=== PATIENT | female | born 1995 | race African-American/Black ===

== ENCOUNTER 2020-12-21 08:00 | Outpatient (CLI) | payer OTHER ==
[2020-12-25 15:01] LABS: HSV 2 IGG TYPE SPECIFIC AB <0.90 index
== END 2020-12-21 23:59 | disposition home or self-care (01) ==
LOC: LAB.WCP 08:00
PROVIDERS: ATTEND Registered Nurse
DX: N90.89 Other specified noninflammatory disorders of vulva and perineum (principal)
CPT/HCPCS: 36415; 81599; 86695; 86696

== ENCOUNTER 2021-01-12 20:44 | Emergency (ER) | payer OTHER ==
[2021-01-12 21:28] LABS: BASOPHILS % (AUTO) 0.3 %; EOSINOPHILS # (AUTO) 0.1 10^3/uL (0.0-0.7); EOSINOPHILS % (AUTO) 0.9 %; HCT - HEMATOCRIT 37.1 % (37.0-47.0); HGB - HEMOGLOBIN 11.4 g/dL (12.0-16.0); LYMPHOCYTES # (AUTO) 2.7 10^3/uL (1.5-3.5); LYMPHOCYTES % (AUTO) 27.9 %; MEAN CORPUSCULAR HEMOGLOBIN 24.4 pg (27.0-31.0); MEAN CORPUSCULAR HGB CONC 30.7 g/dL (32.0-36.0); MEAN CORPUSCULAR VOLUME 79.4 fL (81.0-99.0); MEAN PLATELET VOLUME 10.2 fL (7.9-10.8); MONOCYTES # (AUTO) 0.6 10^3/uL (0.0-1.0); MONOCYTES % (AUTO) 5.8 %; NEUTROPHILS # (AUTO) 6.3 10^3/uL (1.5-6.6); NEUTROPHILS % (AUTO) 64.9 %; PLT - PLATELET COUNT 365 10^3/uL (130-450); RED BLOOD COUNT 4.67 10^6/uL (4.20-5.40); WHITE BLOOD COUNT 9.7 x10^3/uL (4.8-10.8)
[2021-01-12 21:34] LABS: INR 1.1 (0.8-1.2); PT - PROTHROMBIN TIME 12.1 secs (9.9-12.6)
[2021-01-12 21:47] LABS: ALBUMIN 4.2 g/dL (3.2-5.5); ALBUMIN/GLOBULIN RATIO 1.3 (1.0-2.2); BILIRUBIN,TOTAL 0.5 mg/dL (0.2-1.0); CALCIUM 9.2 mg/dL (8.5-10.3); CREATININE 0.6 mg/dL (0.4-1.0); POTASSIUM 3.7 mmol/L (3.5-5.0); TOTAL PROTEIN 7.5 g/dL (6.7-8.2)
[2021-01-12 21:50] LABS: BILIRUBIN,URINE NEGATIVE (NEGATIVE); GLUCOSE, URINE (UA) NEGATIVE (NEGATIVE); KETONES,URINE (UA) NEGATIVE (NEGATIVE); LEUKOCYTE ESTERASE, URINE NEGATIVE (NEGATIVE); NITRITE,URINE NEGATIVE (NEGATIVE); OCCULT BLOOD,URINE LARGE (NEGATIVE); PH,URINE 5.5 PH (5.0-7.5); PROTEIN,URINE NEGATIVE (NEGATIVE); UROBILINOGEN,URINE 0.2 (NORMAL) E.U./dL (NORMAL)
[2021-01-12 22:11] LABS: BACTERIA,URINE Rare /HPF (None Seen); CLARITY,URINE CLEAR (CLEAR); HCG UR QUAL NEGATIVE; MUCUS,URINE Moderate Strands; SQUAMOUS EPITHELIAL CELL,UR FEW Squamous (<= Few); WBC,URINE 0-3 /HPF (0-5)
[2021-01-12 23:23] VITALS: BP 128/74
--- NOTE | 2021-01-13 22:05 | ED Physician Documentation ---
PD HPI FEMALE - Stated complaint Stated Complaint: FEMALE - Chief complaint Chief Complaint: Abd Pain - History obtained from History obtained from: Patient - History of Present Illness Timing - onset: Enter time (18:00) Timing - details: Abrupt onset Associated symptoms: Pelvic pain, Vaginal bleeding. No: Fever Contributing factors: No: - Additional information Additional information: patient has been having varying degrees of vaginal bleeding x 10 months but significant increase in vaginal bleeding since earlier today associated with pelvic cramping; this was worst at 6 PM at which time she noticed her IUD came out and, over the subsequent 20-30 minutes, the bleeding slowed and has nearly stopped, and the cramping has resolved. By the time of this evaluation, she says she feels well Review of Systems Constitutional: denies: Fever GI: denies: Abdominal Pain (pelvic cramping but not abdominal pain per se), Nausea, Vomiting : reports: Vaginal bleeding. denies: Dysuria, Frequency, Now EGA PD PAST MEDICAL HISTORY - Past Medical History Past Medical History: No - Past Surgical History Past Surgical History: Yes Ortho: Other - Present Medications Home Medications: Ambulatory Orders Medication Instructions Recorded Confirmed No Known Home Medications 01/12/21 01/12/21 - Allergies Allergies/Adverse Reactions: Allergies Allergy/AdvReac Type Severity Reaction Status Date / Time No Known Drug Allergies Allergy Verified 01/12/21 21:05 - Social History Does the pt smoke?: No Smoking Status: Never smoker Does the pt drink ETOH?: Yes Does the pt have substance abuse?: No - Immunizations Immunizations are current?: Yes PD ED PE NORMAL - Vitals Vital signs reviewed: Yes - General General: Alert and oriented X 3, No acute distress, Well developed/nourished - Cardiac Cardiac: RRR, No murmur - Respiratory Respiratory: No respiratory distress, Clear bilaterally - Abdomen Abdomen: Normal bowel sounds, Soft, Non tender, Non distended - Back Back: No CVA TTP Results - Vitals Vitals: Vital Signs - 24 hr 01/12/21 01/12/21 23:06 23:23 Temperature 36.6 C 36.6 C Heart Rate 73 73 Respiratory 16 16 Rate Blood Pressure 128/74 128/74 O2 Saturation 100 100 Oxygen O2 Source Room air - Labs Labs: Laboratory Tests 01/12/21 01/12/21 01/12/21 21:21 21:21 21:21 WBC 9.7 RBC 4.67 Hgb 11.4 L Hct 37.1 MCV 79.4 L MCH 24.4 L MCHC 30.7 L RDW 16.0 H Plt Count 365 MPV 10.2 Neut # (Auto) 6.3 Lymph # (Auto) 2.7 Rich # (Auto) 0.6 Eos # (Auto) 0.1 Baso # (Auto) 0.0 Absolute Nucleated RBC 0.00 Nucleated RBC % 0.0 PT INR Sodium 138 Potassium 3.7 Chloride 104 Carbon Dioxide 24 Anion Gap 10.0 BUN 11 Creatinine 0.6 Estimated GFR (MDRD) 123 Glucose 106 H Calcium 9.2 Total Bilirubin 0.5 AST 15 ALT 15 Alkaline Phosphatase 74 Total Protein 7.5 Albumin 4.2 Globulin 3.3 Albumin/Globulin Ratio 1.3 Lipase 26 Urine Color Urine Clarity Urine pH Ur Specific [place] Urine Protein Urine Glucose (UA) Urine Ketones Urine Occult Blood Urine Nitrite Urine Bilirubin Urine Urobilinogen Ur Leukocyte Esterase Urine RBC Urine WBC Ur Squamous Epith Cells Urine Bacteria Urine Mucus Ur Microscopic Review Urine Culture Comments Urine HCG, Qual Blood Type O POSITIVE Antibody Screen NEGATIVE 01/12/21 01/12/21 21:21 21:36 WBC RBC Hgb Hct MCV MCH MCHC RDW Plt Count MPV Neut # (Auto) Lymph # (Auto) Rich # (Auto) Eos # (Auto) Baso # (Auto) Absolute Nucleated RBC Nucleated RBC % PT 12.1 INR 1.1 Sodium Potassium Chloride Carbon Dioxide Anion Gap BUN Creatinine Estimated GFR (MDRD) Glucose Calcium Total Bilirubin AST ALT Alkaline Phosphatase Total Protein Albumin Globulin Albumin/Globulin Ratio Lipase Urine Color YELLOW Urine Clarity CLEAR Urine pH 5.5 Ur Specific [place] >=1.030 H Urine Protein NEGATIVE Urine Glucose (UA) NEGATIVE Urine Ketones NEGATIVE Urine Occult Blood LARGE H Urine Nitrite NEGATIVE Urine Bilirubin NEGATIVE Urine Urobilinogen 0.2 (NORMAL) Ur Leukocyte Esterase NEGATIVE Urine RBC 6-10 H Urine WBC 0-3 Ur Squamous Epith Cells FEW Squamous Urine Bacteria Rare Urine Mucus Moderate Strands Ur Microscopic Review INDICATED Urine Culture Comments NOT INDICATED Urine HCG, Qual NEGATIVE Blood Type Antibody Screen PD MEDICAL DECISION MAKING - ED course Complexity details: reviewed results, considered differential, d/w patient ED course: patient had pelvic cramping which resolved this evening after her IUD dislodged (came out). She had it placed 6 months ago. She also had vaginal bleeding since earlier today but this has nearly resolved subsequent to the IUD coming out. Her blood tests are reassuring and she is comfortable with d/c home Departure - Departure Disposition: 01 Home, Self Care Clinical Impression: Vaginal bleeding IUD complication Qualifiers: Device complication type: unspecified Encounter type: initial encounter Qualified Code(s): T83.9XXA - Unspecified complication of genitourinary prosthetic device, implant and graft, initial encounter Condition: Good Instructions: ED Bleed Irregular Vaginal Comments: You should assume you are no longer protected against becoming now that your IUD is out. Follow up with your advance agent to discuss options as well as reevaluation of your bleeding and pelvic cramping Discharge Date/Time: 01/12/21 23:23
== END 2021-01-12 23:23 | disposition home or self-care (01) ==
LOC: ED 20:44
DX: T83.32XA Displacement of intrauterine contraceptive device, initial encounter (principal); Y76.8 Miscellaneous obstetric and gynecological devices associated with adverse incidents, not elsewhere classified; N93.9 Abnormal uterine and vaginal bleeding, unspecified
CPT/HCPCS: 36415; 80053; 81001; 81003; 81025; 83690; 85025; 85610; 86850; 86900; 86901; 87086; 99283; 99284

== ENCOUNTER 2021-03-19 22:34 | Emergency (ER) | payer OTHER ==
[2021-03-19 23:06] LABS: BILIRUBIN,URINE NEGATIVE (NEGATIVE); GLUCOSE, URINE (UA) NEGATIVE (NEGATIVE); KETONES,URINE (UA) NEGATIVE (NEGATIVE); LEUKOCYTE ESTERASE, URINE NEGATIVE (NEGATIVE); NITRITE,URINE NEGATIVE (NEGATIVE); OCCULT BLOOD,URINE NEGATIVE (NEGATIVE); PROTEIN,URINE NEGATIVE (NEGATIVE); UROBILINOGEN,URINE 0.2 (NORMAL) E.U./dL (NORMAL)
[2021-03-19 23:10] LABS: CLARITY,URINE CLEAR (CLEAR); HCG UR QUAL POSITIVE
[2021-03-19 23:16] LABS: BASOPHILS % (AUTO) 0.3 %; EOSINOPHILS # (AUTO) 0.2 10^3/uL (0.0-0.7); EOSINOPHILS % (AUTO) 1.3 %; HCT - HEMATOCRIT 35.1 % (37.0-47.0); HGB - HEMOGLOBIN 10.8 g/dL (12.0-16.0); LYMPHOCYTES # (AUTO) 3.8 10^3/uL (1.5-3.5); MEAN CORPUSCULAR HEMOGLOBIN 23.4 pg (27.0-31.0); MEAN CORPUSCULAR HGB CONC 30.8 g/dL (32.0-36.0); MEAN PLATELET VOLUME 9.7 fL (7.9-10.8); MONOCYTES # (AUTO) 0.9 10^3/uL (0.0-1.0); MONOCYTES % (AUTO) 7.7 %; NEUTROPHILS # (AUTO) 6.9 10^3/uL (1.5-6.6); NEUTROPHILS % (AUTO) 58.4 %; PLT - PLATELET COUNT 335 10^3/uL (130-450); RED BLOOD COUNT 4.62 10^6/uL (4.20-5.40); RED CELL DISTRIBUTION WIDTH 15.9 % (12.0-15.0); WHITE BLOOD COUNT 11.8 x10^3/uL (4.8-10.8)
[2021-03-19 23:19] LABS: CREATININE,URINE 216.8 mg/dL
[2021-03-19] MEDS ORDERED: ONDANSETRON ODT 4 MG TABLET TL STA (23:28)
--- NOTE | 2021-03-19 23:28 | ED Physician Documentation ---
History of Present Illness - Stated complaint Stated Complaint: CRAMPING, N/V - Chief complaint Chief Complaint: Abd Pain - History obtained from History obtained from: Patient - Additonal information Additional information: 25-year-old woman at about 6 weeks gestational age presents with cramping over the past 2 days and associated nausea and generalized mild headache. Patient denies bleeding or urinary symptoms however she has not had cramping like this in other pregnancies and was concerned. Denies fevers or back pain. Review of Systems Ten Systems: 10 systems reviewed and negative Constitutional: denies: Fever, Chills GI: reports: Abdominal Pain, Nausea, Vomiting. denies: Diarrhea : denies: Dysuria Musculoskeletal: denies: Back pain PD PAST MEDICAL HISTORY - Past Surgical History Past Surgical History: Yes Ortho: Other - Present Medications Home Medications: Ambulatory Orders Medication Instructions Recorded Confirmed Labetalol [Trandate] 100 mg PO DAILY #30 tablet 03/20/21 - Allergies Allergies/Adverse Reactions: Allergies Allergy/AdvReac Type Severity Reaction Status Date / Time No Known Drug Allergies Allergy Verified 01/12/21 21:05 - Social History Does the pt smoke?: No Smoking Status: Never smoker Does the pt drink ETOH?: Yes Does the pt have substance abuse?: No - Immunizations Immunizations are current?: Yes PD ED PE NORMAL - Vitals Vital signs reviewed: Yes - General General: Alert and oriented X 3, No acute distress, Well developed/nourished - HEENT HEENT: Atraumatic, PERRL, EOMI - Neck Neck: Supple, no meningeal sign - Cardiac Cardiac: RRR - Respiratory Respiratory: No respiratory distress, Clear bilaterally - Abdomen Abdomen: Non tender, Non distended - Derm Derm: Normal color, Warm and dry - Extremities Extremities: No deformity, Other (no clonus) - Neuro Neuro: Alert and oriented X 3 - Psych Psych: Normal mood, Normal affect Results - Vitals Vitals: Vital Signs - 24 hr 03/19/21 03/20/21 22:41 00:31 Temperature 37 C Heart Rate 88 Respiratory 16 Rate Blood Pressure 168/82 H 143/73 H O2 Saturation 99 Oxygen O2 Source Room air - Labs Labs: Laboratory Tests 03/19/21 03/19/21 03/19/21 22:56 22:56 23:11 WBC 11.8 H RBC 4.62 Hgb 10.8 L Hct 35.1 L MCV 76.0 L MCH 23.4 L MCHC 30.8 L RDW 15.9 H Plt Count 335 MPV 9.7 Neut # (Auto) 6.9 H Lymph # (Auto) 3.8 H [place] # (Auto) 0.9 Eos # (Auto) 0.2 Baso # (Auto) 0.0 Absolute Nucleated RBC 0.00 Nucleated RBC % 0.0 Sodium Potassium Chloride Carbon Dioxide Anion Gap BUN Creatinine Estimated GFR (MDRD) Glucose Calcium Total Bilirubin AST ALT Alkaline Phosphatase Total Protein Albumin Globulin Albumin/Globulin Ratio Lipase HCG, Quant Urine Color YELLOW Urine Clarity CLEAR Urine pH 7.0 Ur Specific [place] 1.020 Urine Protein NEGATIVE Urine Glucose (UA) NEGATIVE Urine Ketones NEGATIVE Urine Occult Blood NEGATIVE Urine Nitrite NEGATIVE Urine Bilirubin NEGATIVE Urine Urobilinogen 0.2 (NORMAL) Ur Leukocyte Esterase NEGATIVE Ur Microscopic Review NOT INDICATED Urine Culture Comments NOT INDICATED Urine Creatinine 216.8 Ur Total Protein Timed 10 Protein/Creatinin Ratio 0.0 Urine HCG, Qual POSITIVE 03/19/21 03/19/21 23:11 23:11 WBC RBC Hgb Hct MCV MCH MCHC RDW Plt Count MPV Neut # (Auto) Lymph # (Auto) [place] # (Auto) Eos # (Auto) Baso # (Auto) Absolute Nucleated RBC Nucleated RBC % Sodium 135 Potassium 4.4 Chloride 102 Carbon Dioxide 24 Anion Gap 9.0 BUN 12 Creatinine 0.7 Estimated GFR (MDRD) 103 Glucose 90 Calcium 9.2 Total Bilirubin 0.4 AST 13 ALT 13 Alkaline Phosphatase 57 Total Protein 7.1 Albumin 4.0 Globulin 3.1 Albumin/Globulin Ratio 1.3 Lipase 31 HCG, Quant 49174.00 Urine Color Urine Clarity Urine pH Ur Specific [place] Urine Protein Urine Glucose (UA) Urine Ketones Urine Occult Blood Urine Nitrite Urine Bilirubin Urine Urobilinogen Ur Leukocyte Esterase Ur Microscopic Review Urine Culture Comments Urine Creatinine Ur Total Protein Timed Protein/Creatinin Ratio Urine HCG, Qual PD MEDICAL DECISION MAKING - ED course ED course: 25-year-old woman presented for evaluation of early . Ultrasound showing twin , subchorionic hemorrhage without other abnormality. She did have an elevated blood pressure 160/82. d/w Dr. Comer, manager [employer] filling machine operator who states this sounds like essential HTN versus gestational HTN and patient should start labetalol routinely as an outpatient. reviewed labwork, u/s findings. will dc patient to f/u outpatient with her research & insights executive at [facility]. strict return precautions given. Departure - Departure Disposition: 01 Home, Self Care Clinical Impression: Twin gestation in first trimester, Subchorionic hematoma in first trimester, Hypertension Condition: Good Instructions: Hypertension Control, Preg Comfort Tips Prescriptions: Labetalol [Trandate] 100 mg PO DAILY #30 tablet Comments: You were seen in the emergency department for evaluation of your . The ultrasound showed that you are likely having twins, since there are two gestational sacs in the uterus. It also showed a subchorionic hemorrhage, a collection of blood in the uterus. If you have bleeding with this you should come to the emergency room right away. We could not see the embryo in the uterus because you are so early along so if you have any new or worsening symptoms you should certainly come back in for reevaluation for ectopic . That being said, there appears to be no emergent finding at this time. You do have high blood pressure, and our RIB SAWY[facility] Dr. Comer recommended we put you on labetalol, a blood pressure medicine. You should follow-up with your RIB SAWYER this week and let them know you are started on this medicine.
[2021-03-19 23:34] LABS: ALBUMIN/GLOBULIN RATIO 1.3 (1.0-2.2); BILIRUBIN,TOTAL 0.4 mg/dL (0.2-1.0); CALCIUM 9.2 mg/dL (8.5-10.3); CREATININE 0.7 mg/dL (0.4-1.0); POTASSIUM 4.4 mmol/L (3.5-5.0); TOTAL PROTEIN 7.1 g/dL (6.7-8.2)
[2021-03-20 02:05] VITALS: BP 132/58
--- NOTE | 2021-03-20 08:26 | Ultrasound Report ---
PROCEDURE: OB First Trimester w/TV INDICATIONS: cramping lower abd pain OUTSIDE/PRIOR DATING DATA: Last menstrual period (LMP): 02/02/2021. LMP-based estimated date of delivery (DORITA): 11/09/2021. First dating scan (date and location): 03/19/2021. Estimated date of delivery (DORITA) from first dating scan: See below. TECHNIQUE: Real-time scanning was performed of the fetus and maternal pelvic organs, with image documentation. Endovaginal scanning was also performed to better visualize the fetus and maternal ovaries. COMPARISON: None. FINDINGS: 2 intrauterine gestational sacs are present, which is age contain a yolk sac however no fe michael pole identified at this time. Mean gestational sac measures 5 weeks 5 days however recommend cont inued ultrasound follow-up as below. There are prominent vessels adjacent to the gestational sacs. Measurement variability in dating: +/- 4 weeks by LMP, +/- 7 days by mean sac diameter (use before 6 weeks gestation if crown-rump length not able to be measured), +/- 5 days by crown-rump length (6-12 weeks gestation). Maternal organs: Possible left-sided corpus luteum.. IMPRESSION: Intrauterine twin gestational sacs however no pole identified at this time. This could reflect early twin IUP, however cannot exclude blighted ovum therefore recommend follow-up pelvic ultrasound in one week, as serial beta hCG values warrant. Reviewed by: Reggie Rosas MD on 03/20/2021 8:25 AM PDT Approved by: Reggie Rosas MD on 03/20/2021 8:25 AM PDT Station ID: [id number]
== END 2021-03-20 02:13 | disposition home or self-care (01) ==
LOC: ED 22:34
DX: O41.8X10 Other specified disorders of amniotic fluid and membranes, first trimester, not applicable or unspecified (principal); O16.1 Unspecified maternal hypertension, first trimester; O30.091 Twin pregnancy, unable to determine number of placenta and number of amniotic sacs, first trimester; Z3A.01 Less than 8 weeks gestation of pregnancy
CPT/HCPCS: 36415; 76801; 76817; 80053; 81003; 81025; 82570; 83690; 84156; 84702; 85025; 99284; Q0162; 81001; 87086

== ENCOUNTER 2021-08-27 08:00 | Outpatient (CLI) | payer OTHER | END 2021-08-27 23:59 | LOC: LAB.N 08:00 | PROVIDERS: ATTEND Family Medicine | DX: U07.1 COVID-19 (principal) ==

== ENCOUNTER 2022-02-18 21:20 | Emergency (ER) | payer OTHER ==
--- OUTSIDE RECORDS SUMMARY | 2022-02-18 21:37 | EXTERNAL MEDICAL SUMMARY RPT | Continuity of Care Document ---
:1995 Author Organization [facility] Address [address] [place] [address] Phone Allergies No information. Encounters No information. Functional Status No information. Immunizations No information. Medications date description facility [id number] Escitalopram 10 MG Oral Tablet [facility] Problems No information. Procedures date description facility [id number] [facility] [id number] [facility] [id number]+0000 [facility] [id number]+0000 [facility] [id number]+0000 [facility] [id number]+0000 [facility] [id number]+0000 [facility] [id number]+0000 [facility] [id number]+0000 [facility] [id number]+0000 [facility] [id number]+0000 [facility] [id number]+0000 [facility] [id number]+0000 [facility] Results/Labs test date author facility value unit interpret ation Result panel 1 (unknown) (no (unknown) (unknown) (no value) (units (unk nown) date) unknown) (unknown) (no (unknown) (unknown) *Induction. (units (un known) date) unknown) (unknown) (no (unknown) (unknown) *PPD : back into (units (unknown) date) Therapy, was put unknown) on Anxiety Rx. But better this time (unknown) (no (unknown) (unknown) *Severe PPD : (units ( unknown) date) Therapy and unknown) Medication. (unknown) (no (unknown) (unknown) Patient presents (units (unknown) date) for a new OB unknown) visit at 9 weeks with twins. She has had (unknown) (no (unknown) (unknown) Patient presents (units (unknown) date) for a routine OB unknown) visit at 18 weeks gestation with (unknown) (no (unknown) (unknown) Patient presents (units (unknown) date) for a routine unknown) visit at 14 weeks gestation with (unknown) (no (unknown) (unknown) Patient presents (units (unknown) date) for a routine unknown) visit at 22 weeks gestation with (unknown) (no (unknown) (unknown) Patient presents (units (unknown) date) for a routine unknown) visit at 26 weeks gestation. Jonh (unknown) (no (unknown) (unknown) Patient presents (units (unknown) date) for a routine unknown) visit at 30 weeks gestation with (unknown) (no (unknown) (unknown) Patient presents (units (unknown) date) for a routine unknown) visit at 32 weeks gestation with (unknown) (no (unknown) (unknown) Patient presents (units (unknown) date) for a routine unknown) visit at 36 weeks gestation. She (unknown) (no (unknown) (unknown) Patient presents (units (unknown) date) for a routine unknown) visit at 37 weeks gestation with (unknown) (no (unknown) (unknown) Pt presents for (units (unknown) date) a PNV at 34 weeks unknown) gestation. No c/o. Jonh FM x 2. No (unknown) (no (unknown) (unknown) (no value) (units (unk nown) date) unknown) (unknown) (no (unknown) (unknown) (no value) (units (unk nown) date) unknown) (unknown) (no (unknown) (unknown) (+12 lb) (units (unkno wn) date) 124/68 N unknown) (unknown) (no (unknown) (unknown) (+16 lb) (units (unkno wn) date) 126/68 N unknown) (unknown) (no (unknown) (unknown) (+28 lb) (units (unkno wn) date) 126/68 N unknown) (unknown) (no (unknown) (unknown) (+35 lb) (units (unkno wn) date) 128/60 N unknown) (unknown) (no (unknown) (unknown) (+41 lb) (units (unkno wn) date) 146/72 unknown) (unknown) (no (unknown) (unknown) (+50 lb) (units (unkno wn) date) 130/62 N unknown) (unknown) (no (unknown) (unknown) (+51 lb) (units (unkno wn) date) 122/62 N unknown) (unknown) (no (unknown) (unknown) (+61 lb) (units (unkno wn) date) 126/76 N unknown) (unknown) (no (unknown) (unknown) (+66 lb) (units (unkno wn) date) 131/76 unknown) (unknown) (no (unknown) (unknown) (+66 lb) (units (unkno wn) date) 136/68 N unknown) (unknown) (no (unknown) (unknown) (+66 lb) (units (unkno wn) date) unknown) (unknown) (no (unknown) (unknown) (+8 lb) (units (unkno wn) date) 120/68 N unknown) (unknown) (no (unknown) (unknown) 09/05/21 (units (unkno wn) date) unknown) (unknown) (no (unknown) (unknown) 09/17/21 (units (unkno wn) date) unknown) (unknown) (no (unknown) (unknown) 09/30/21 (units (unkno wn) date) unknown) (unknown) (no (unknown) (unknown) 10/14/21 (units (unkno wn) date) unknown) (unknown) (no (unknown) (unknown) 10/22/21 (units (unkno wn) date) unknown) (unknown) (no (unknown) (unknown) 10/24/21 (units (unkno wn) date) unknown) (unknown) (no (unknown) (unknown) 02/02/18 40.2 (units ( unknown) date) 30 7 lb 4 oz unknown) Female vaginal live - full ter (unknown) (no (unknown) (unknown) 04/11/21 (units (unkno wn) date) unknown) (unknown) (no (unknown) (unknown) 05/13/21 (units (unkno wn) date) unknown) (unknown) (no (unknown) (unknown) 1+ No no (units (unknown) date) A 155 unknown) (unknown) (no (unknown) (unknown) 1+ Yes no (units (unknown) date) A 140 unknown) (unknown) (no (unknown) (unknown) 1+ Yes no (units (unknown) date) A 150 unknown) (unknown) (no (unknown) (unknown) 06/10/21 (units (unkno wn) date) unknown) (unknown) (no (unknown) (unknown) 07/04/19 38 (units (un known) date) 30 6 lb 2 oz unknown) Female vaginal live - full ter (unknown) (no (unknown) (unknown) 07/09/21 (units (unkno wn) date) unknown) (unknown) (no (unknown) (unknown) 08/07/21 (units (unkno wn) date) unknown) (unknown) (no (unknown) (unknown) 128/76 N (units (un known) date) unknown) (unknown) (no (unknown) (unknown) 141 (units (unkno wn) date) unknown) (unknown) (no (unknown) (unknown) 141 (units (unkno wn) date) unknown) (unknown) (no (unknown) (unknown) 14w 2d 257 lb (units (unknown) date) unknown) (unknown) (no (unknown) (unknown) 153/62 (units (unkno wn) date) unknown) (unknown) (no (unknown) (unknown) 18w 2d 261 lb (units (unknown) date) unknown) (unknown) (no (unknown) (unknown) 22w 3d 273 lb (units (unknown) date) unknown) (unknown) (no (unknown) (unknown) 26w 4d 280 lb (units (unknown) date) unknown) (unknown) (no (unknown) (unknown) 30w 5d 286 lb (units (unknown) date) unknown) (unknown) (no (unknown) (unknown) 311 lb (units (unkno wn) date) unknown) (unknown) (no (unknown) (unknown) 32w 3d 296 lb (units (unknown) date) unknown) (unknown) (no (unknown) (unknown) 34w 2d 295 lb (units (unknown) date) unknown) (unknown) (no (unknown) (unknown) 36w 2d 306 lb (units (unknown) date) unknown) (unknown) (no (unknown) (unknown) 37w 3d 311 lb (units (unknown) date) unknown) (unknown) (no (unknown) (unknown) 38w 0d 311 lb (units (unknown) date) unknown) (unknown) (no (unknown) (unknown) 9w 5d 253 lb (units (unknown) date) unknown) (unknown) (no (unknown) (unknown) A (units (unkno wn) date) unknown) (unknown) (no (unknown) (unknown) [place] (units ( unknown) date) [address] unknown) (unknown) (no (unknown) (unknown) Current Estimate (units (unknown) date) 11/09/21 unknown) LMP (Certain) 44w 2d (unknown) (no (unknown) (unknown) Diabetes (units (unkno wn) date) mellitus unknown) (unknown) (no (unknown) (unknown) Draft (units (unkno wn) date) unknown) (unknown) (no (unknown) (unknown) Drug addiction (units (unknown) date) in remission unknown) (unknown) (no (unknown) (unknown) Estimated (units (unkn own) date) Delivery Date unknown) Method Current (unknown) (no (unknown) (unknown) Family (units (unkno wn) date) estrangement unknown) (unknown) (no (unknown) (unknown) # 2 (units (u nknown) date) unknown) (unknown) (no (unknown) (unknown) [facility]) (unknown) (no (unknown) (unknown) History of ETOH (units (unknown) date) abuse unknown) (unknown) (no (unknown) (unknown) History of (units (unk nown) date) incarceration unknown) (unknown) (no (unknown) (unknown) Hypertension (units (u nknown) date) unknown) (unknown) (no (unknown) (unknown) N Yes no (units (unknown) date) A 131 unknown) (unknown) (no (unknown) (unknown) OB Office Visit (units (unknown) date) unknown) (unknown) (no (unknown) (unknown) Other Estimates (units (unknown) date) 11/14/21 unknown) Ultrasound #1 43w 4d (unknown) (no (unknown) (unknown) Skin cancer (units (un known) date) unknown) (unknown) (no (unknown) (unknown) TR No no (units (unknown) date) A 170 unknown) (unknown) (no (unknown) (unknown) TR Yes no (units (unknown) date) A 129 unknown) (unknown) (no (unknown) (unknown) TR Yes no (units (unknown) date) A 134 unknown) (unknown) (no (unknown) (unknown) TR Yes no (units (unknown) date) A 138 unknown) (unknown) (no (unknown) (unknown) TR Yes no (units (unknown) date) A 141 unknown) (unknown) (no (unknown) (unknown) TR Yes no (units (unknown) date) A 151 unknown) (unknown) (no (unknown) (unknown) kag (units (unkno wn) date) unknown) (unknown) (no (unknown) (unknown) (no value) (units (unk nown) date) unknown) (unknown) (no (unknown) (unknown) Genetic (units (unkn own) date) Screening/Teratol unknown) ogy Counseling - Includes patient, baby's father, or (unknown) (no (unknown) (unknown) -?-?-?-?-?-?-?-? (units (unknown) date) -?-?-?-?- unknown) (unknown) (no (unknown) (unknown) 0081 (units (unkno wn) date) unknown) (unknown) (no (unknown) (unknown) 12/09/21 (units (unkno wn) date) unknown) (unknown) (no (unknown) (unknown) 1. : (units (unk nown) date) with unknown) Di/Di Twins. Boy/Girl (unknown) (no (unknown) (unknown) 10. PICA at 26 (units (unknown) date) weeks. Discussed unknown) PNV and iron (unknown) (no (unknown) (unknown) 11. *Special* (units (unknown) date) unknown) (unknown) (no (unknown) (unknown) 141 beats per (units ( unknown) date) minute. unknown) heart rate B 138 beats per minute. Both or in the (unknown) (no (unknown) (unknown) 2. H/O PIH with (units (unknown) date) both pregnancies unknown) and hemorrhage PP both times also. On (unknown) (no (unknown) (unknown) 2021. No (units (unkno wn) date) contractions. unknown) Good movement x2. No leakage of fluid or vaginal (unknown) (no (unknown) (unknown) 3. Thalassemia. (units (unknown) date) unknown) (unknown) (no (unknown) (unknown) 4. Hyperemesis (units (unknown) date) Gravidarum : unknown) Infusions have helped some. Zofran/Reglan (unknown) (no (unknown) (unknown) 49%ile. B AGA (units ( unknown) date) 30w0d 3#10oz unknown) 51%ile. No tension on membrane. Trans/Trans. Plan: (unknown) (no (unknown) (unknown) 5. Pre-diabetic (units (unknown) date) diagnosis February unknown) 2020 (unknown) (no (unknown) (unknown) 6. 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 (unknown) (no (unknown) (unknown) 8. Obesity : (units ( unknown) date) Prepping for unknown) Gastric Sleeve surgery when she found out she was (unknown) (no (unknown) (unknown) 9. H/O Left Hip (units (unknown) date) : slipped unknown) epiphysis (fractured that hip also) with Hardware (unknown) (no (unknown) (unknown) Abnormal lab (units (u nknown) date) values 1st unknown) trimester: discussed (unknown) (no (unknown) (unknown) Add'l Plan (units (unk nown) date) Details unknown) (unknown) (no (unknown) (unknown) Age at menarche: (units (unknown) date) 16 unknown) (unknown) (no (unknown) (unknown) Age/Sex: 25 / F (units (unknown) date) Date of unknown) Service: (unknown) (no (unknown) (unknown) Allergies (units (unkn own) date) unknown) (unknown) (no (unknown) (unknown) Anemia (units (unkno wn) date) unknown) (unknown) (no (unknown) (unknown) Anesthesia (units (unk nown) date) unknown) (unknown) (no (unknown) (unknown) Aneuploidy (units (unk nown) date) Screening unknown) Offered: Accepted (unknown) (no (unknown) (unknown) Anticipated (units (un known) date) course of unknown) care: discussed (unknown) (no (unknown) (unknown) Assessment and (units (unknown) date) Plan unknown) (unknown) (no (unknown) (unknown) Attending Dr: (units ( unknown) date) Fanny Brown unknown) (unknown) (no (unknown) (unknown) B Transverse (units (unknown) date) absent 2 unknown) wks (unknown) (no (unknown) (unknown) B Transverse (units (unknown) date) absent 4 unknown) wks (unknown) (no (unknown) (unknown) B Vertex (units (u nknown) date) 1+ 2 wks unknown) (unknown) (no (unknown) (unknown) B Vertex (units (u nknown) date) 1+ 3d unknown) (unknown) (no (unknown) (unknown) B Vertex (units (u nknown) date) 1+ cl/75/soft unknown) 1 (unknown) (no (unknown) (unknown) B 138 49 (units (unknown) date) A Vertex unknown) (unknown) (no (unknown) (unknown) B 142 27 (units (unknown) date) A Transverse unknown) (unknown) (no (unknown) (unknown) B 144 47 (units (unknown) date) A Vertex unknown) (unknown) (no (unknown) (unknown) B 148 37 (units (unknown) date) A Transverse unknown) (unknown) (no (unknown) (unknown) B 148 43 (units (unknown) date) A Vertex unknown) (unknown) (no (unknown) (unknown) B 151 24 (units (unknown) date) A Transverse unknown) (unknown) (no (unknown) (unknown) B 153 17 (units (unknown) date) A Transverse unknown) (unknown) (no (unknown) (unknown) B 178 12 (units (unknown) date) A N/A unknown) (unknown) (no (unknown) (unknown) B 29 31 (units ( unknown) date) A Transverse unknown) (unknown) (no (unknown) (unknown) B 51 39 (units ( unknown) date) A Vertex unknown) (unknown) (no (unknown) (unknown) B A (units (unkno wn) date) unknown) (unknown) (no (unknown) (unknown) B N/A (units (unkno wn) date) absent unknown) long/closed AGA 9w0d 4 (unknown) (no (unknown) (unknown) B (units (unkno wn) date) unknown) (unknown) (no (unknown) (unknown) 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 unknown) (unknown) (no (unknown) (unknown) Caffeine use, (units ( unknown) date) Eating disorder unknown) history, Exercise and activity, (unknown) (no (unknown) (unknown) Childbirth (units (unk nown) date) Classes: unknown) discussed (unknown) (no (unknown) (unknown) Current (units (unkno wn) date) History unknown) (unknown) (no (unknown) (unknown) : 1995 (units (unknown) date) Acct:[id number] unknown) (unknown) (no (unknown) (unknown) Date (units (unkno wn) date) unknown) (unknown) (no (unknown) (unknown) Date of positive (units (unknown) date) home unknown) test: 03/03/21 (unknown) (no (unknown) (unknown) Del. Date (units (unkn own) date) GA/Weeks Labor unknown) Lgth Wt Sex Route Outcome Anesthesia Place (unknown) (no (unknown) (unknown) Delivery Date: (units (unknown) date) 10/25/21 unknown) (unknown) (no (unknown) (unknown) Delivery Date: (units (unknown) date) 02/02/18 Last unknown) Updated by: Karlene Figueroa R.N. (unknown) (no (unknown) (unknown) Delivery Date: (units (unknown) date) 07/04/19 Last unknown) Updated by: Karlene Figueroa R.N. (unknown) (no (unknown) (unknown) Delv (units (unkno wn) date) unknown) (unknown) (no (unknown) (unknown) Denies Congenital (units (unknown) date) Heart Defect, unknown) Denies Down Syndrome, Denies Muscular Dystrophy, (unknown) (no (unknown) (unknown) Denies (units (unkno wn) date) Hemophilia or unknown) other blood disorders, Denies Cystic Fibrosis, Denies (unknown) (no (unknown) (unknown) Denies Neural (units ( unknown) date) Tube Defect unknown) (Meningomyelocele , Spina Bifida, or Anencephaly), (unknown) (no (unknown) (unknown) Denies Patient (units (unknown) date) or baby's father unknown) had a child with defects not listed above (unknown) (no (unknown) (unknown) Denies Edgardo-Sachs (units (unknown) date) (Ashkenazi unknown) Oriental Orthodox, Cajun, Taiwanese Panamanian), Denies Patricia (unknown) (no (unknown) (unknown) Denies other (units (u nknown) date) unknown) (unknown) (no (unknown) (unknown) Denies over the (units (unknown) date) counter unknown) medications, Denies alcohol, Denies illicit drugs and (unknown) (no (unknown) (unknown) Depression: (units (un known) date) discussed unknown) (unknown) (no (unknown) (unknown) Dept at (units (unkno wn) date) . unknown) (unknown) (no (unknown) (unknown) Disease (units (unkno wn) date) (Ashkenazi unknown) Oriental Orthodox), Denies Familial Dysautonomia (Ashkenazi Oriental Orthodox), (unknown) (no (unknown) (unknown) Documented By: (units (unknown) date) Fanny Brown unknownNishi BEVERLY 12/09/21 6153 (unknown) (no (unknown) (unknown) Domestic (units (unkno wn) date) violence: unknown) discussed (unknown) (no (unknown) (unknown) DORITA Calculator (units (unknown) date) unknown) (unknown) (no (unknown) (unknown) EGA Weight BP (units ( unknown) date) UGlucose unknown) (unknown) (no (unknown) (unknown) ETOH use, (units (unkno wn) date) Sauna/hot tub unknown) use, Dental care, Marijuana use, Substance use, Domestic (unknown) (no (unknown) (unknown) Family History (units (unknown) date) (Updated 04/10/21 unknown) @ 10:45 by Karlene Figueroa RN) (unknown) (no (unknown) (unknown) Father (units (unkno wn) date) MVA unknown) (motor vehicle accident) (unknown) (no (unknown) (unknown) Father of Baby: (units (unknown) date) as above unknown) (unknown) (no (unknown) (unknown) heart (units (un known) date) rates 150/151 unknown) respectively. Plan: Quad screen today. Twenty week (unknown) (no (unknown) (unknown) First Trimester (units (unknown) date) Education unknown) Checklist (unknown) (no (unknown) (unknown) Genetic (units (unkno wn) date) Screening unknown) (unknown) (no (unknown) (unknown) Genetic (units (unkno wn) date) Screening + unknown) Counseling (unknown) (no (unknown) (unknown) Good AFV. Plan: (units (unknown) date) F/U 1 wk. Warning unknown) signs reviewed. kag (unknown) (no (unknown) (unknown) Good (units (unk nown) date) movement x2. No unknown) leakage of fluid or vaginal bleeding. No regular (unknown) (no (unknown) (unknown) Grandfather (units (un known) date) Cancer unknown) (unknown) (no (unknown) (unknown) Grandfather (units (un known) date) Family unknown) estrangement (unknown) (no (unknown) (unknown) Grandmother (units (un known) date) Arthritis unknown) (unknown) (no (unknown) (unknown) Grandmother (units (un known) date) Cancer unknown) (unknown) (no (unknown) (unknown) 3 (units (unknown) date) Multiple unknown) births 0 (unknown) (no (unknown) (unknown) : 3 (units (unk nown) date) unknown) (unknown) (no (unknown) (unknown) H+H ordered. (units (u nknown) date) COVID test in 1 unknown) week prior to induction. Warning signs reviewed. (unknown) (no (unknown) (unknown) HIV risk (units (unkno wn) date) evaluation: low unknown) risk (unknown) (no (unknown) (unknown) Health Center (units ( unknown) date) Education unknown) (unknown) (no (unknown) (unknown) Health center (units ( unknown) date) information: unknown) nature of practice discussed, visit schedule (unknown) (no (unknown) (unknown) Heavy menstrual (units (unknown) date) period unknown) (unknown) (no (unknown) (unknown) Hemorrhage, (units (un known) date) immediate unknown) (unknown) (no (unknown) (unknown) Hepatitis C risk (units (unknown) date) evaluation: low unknown) risk (unknown) (no (unknown) (unknown) Herpes (units (unkno wn) date) () unknown) (unknown) (no (unknown) (unknown) Hip fracture, (units ( unknown) date) left unknown) (unknown) (no (unknown) (unknown) History of (units (unk nown) date) Hepatitis B: No unknown) (unknown) (no (unknown) (unknown) History of (units (unk nown) date) Hepatitis C: No unknown) (unknown) (no (unknown) (unknown) History of hip (units (unknown) date) surgery unknown) (unknown) (no (unknown) (unknown) History of (units (unk nown) date) prediabetes unknown) (unknown) (no (unknown) (unknown) History/Interim (units (unknown) date) Details unknown) (unknown) (no (unknown) (unknown) Elías's (units (u nknown) date) Chorea, Denies unknown) Other inherited genetic or chromosomal disorder, (unknown) (no (unknown) (unknown) Hx # (units (u nknown) date) Pregnancies unknown) 0 Elective abortions 0 (unknown) (no (unknown) (unknown) Hx # Term (units (unkn own) date) Pregnancies unknown) 2 Ectopic pregnancies 0 (unknown) (no (unknown) (unknown) Hyperemesis (units (un known) date) gravidarum unknown) (-03/2021) (unknown) (no (unknown) (unknown) Induction (units (unkn own) date) 10/28/21. Warning unknown) signs reviewed. F/U 2 wks. kag (unknown) (no (unknown) (unknown) Infection (units (unkn own) date) History unknown) (unknown) (no (unknown) (unknown) Infection (units (unkn own) date) history comments: unknown) Considering Covid vaccination: many concerns and (unknown) (no (unknown) (unknown) Infectious (units (unk nown) date) Disease Education unknown) (unknown) (no (unknown) (unknown) Infectious (units (unk nown) date) disease exposure: unknown) chicken pox immunity discussed, CMV discussed, (unknown) (no (unknown) (unknown) Initial Weight: (units (unknown) date) 245 lb unknown) (unknown) (no (unknown) (unknown) Initials (units (unkno wn) date) unknown) (unknown) (no (unknown) (unknown) Intake (units (unkno wn) date) unknown) (unknown) (no (unknown) (unknown) LOF/VB/Ctx's. (units (u nknown) date) US: Vertex/vertex unknown) A AGA 33w2d B 34w2d. No tension on membrane. (unknown) (no (unknown) (unknown) Live with (units (unkn own) date) someone with TB unknown) or exposed to TB: No (unknown) (no (unknown) (unknown) Loc: [facility] (units (unkno wn) date) unknown) (unknown) (no (unknown) (unknown) Marijuana use: (units (unknown) date) discussed unknown) (unknown) (no (unknown) (unknown) Marital status: (units (unknown) date) unknown) (unknown) (no (unknown) (unknown) Medical History (units (unknown) date) (Updated 11/05/21 unknown) @ 21:26 by Fanny Brown MD) (unknown) (no (unknown) (unknown) Menstrual (units (unkn own) date) History unknown) (unknown) (no (unknown) (unknown) Menstrual cycle (units (unknown) date) length: Regular unknown) (unknown) (no (unknown) (unknown) Mother Bipolar (units (unknown) date) 1 disorder unknown) (unknown) (no (unknown) (unknown) Naval, [place] 15 (units (unknown) date) months unknown) induced hyper- (unknown) (no (unknown) (unknown) Notes (units (unkno wn) date) unknown) (unknown) (no (unknown) (unknown) Number of Living (units (unknown) date) Children 2 unknown) (unknown) (no (unknown) (unknown) Number of Weeks (units (unknown) date) Post : 6 unknown) (unknown) (no (unknown) (unknown) Number of (units (unkn own) date) fetuses:: Twins unknown) (unknown) (no (unknown) (unknown) Nutrition and (units ( unknown) date) weight gain unknown) counseling: special diet: discussed (unknown) (no (unknown) (unknown) OB Visit Log (units (u nknown) date) unknown) (unknown) (no (unknown) (unknown) Obesity (units (unkno wn) date) unknown) (unknown) (no (unknown) (unknown) On control (units (unknown) date) at conception?: unknown) No (IUD (Mirena) 'fell out' early January) (unknown) (no (unknown) (unknown) On ultrasound: (units (unknown) date) No tension on the unknown) membrane. Both babies are in the transverse (unknown) (no (unknown) (unknown) PFSH (units (unkno wn) date) unknown) (unknown) (no (unknown) (unknown) PKU); (units (unkno wn) date) unknown) (unknown) (no (unknown) (unknown) Para 2 (units ( unknown) date) Spontaneous unknown) abortions 0 (unknown) (no (unknown) (unknown) Para: 4 (units (unkno wn) date) unknown) (unknown) (no (unknown) (unknown) Partner history (units (unknown) date) of STD: denies hx unknown) (unknown) (no (unknown) (unknown) Partner history (units (unknown) date) of genital unknown) herpes: No ('He tested Negative', per patient) (unknown) (no (unknown) (unknown) Partner: Devin (units ( unknown) date) Manny unknown) (unknown) (no (unknown) (unknown) Past Pregnancies (units (unknown) date) unknown) (unknown) (no (unknown) (unknown) Patient's age 36 (units (unknown) date) years or older as unknown) of estimated date of delivery: No (unknown) (no (unknown) (unknown) Patient: (units (unkno wn) date) Zev Bryant R unknown) MR#: [id number] (unknown) (no (unknown) (unknown) Personal history (units (unknown) date) of STD: other unknown) (unknown) (no (unknown) (unknown) Personal history (units (unknown) date) of genital unknown) herpes: Yes (Recent diagnosis : HSV-16 November 2020) (unknown) (no (unknown) (unknown) Plan: Add baby (units (unknown) date) aspirin. unknown) Continue infusions as needed. Follow-up in 4 weeks. (unknown) (no (unknown) (unknown) Post (units (un known) date) unknown) (unknown) (no (unknown) (unknown) (units (unkn own) date) History unknown) (unknown) (no (unknown) (unknown) type:: (units (unknown) date) Other Normal unknown) (unknown) (no (unknown) (unknown) (units (unkno wn) date) Education unknown) (unknown) (no (unknown) (unknown) Initial (units (unknown) date) Assessment unknown) (unknown) (no (unknown) (unknown) (units (unkno wn) date) Specific unknown) Issues/Plans (unknown) (no (unknown) (unknown) (units (unkno wn) date) Testing: unknown) discussed (unknown) (no (unknown) (unknown) Visit (units (unknown) date) unknown) (unknown) (no (unknown) (unknown) (units (unkno wn) date) education packet: unknown) Child education/plan, symptoms, (unknown) (no (unknown) (unknown) Primary Ob (units (unk nown) date) Provider: unknown) Fanny Brown (unknown) (no (unknown) (unknown) Prior (units (unkno wn) date) GBS-Infected unknown) child: No (unknown) (no (unknown) (unknown) Providers (units (unkn own) date) unknown) (unknown) (no (unknown) (unknown) Rash or viral (units ( unknown) date) illness since unknown) last menstrual period: No (unknown) (no (unknown) (unknown) Reason For Visit (units (unknown) date) unknown) (unknown) (no (unknown) (unknown) Recent travel (units ( unknown) date) outside of unknown) country?: No (unknown) (no (unknown) (unknown) Recurrent (units (unkn own) date) loss or unknown) a stillbirth: No (unknown) (no (unknown) (unknown) Reports Sickle (units (unknown) date) Cell Disease or unknown) Trait (), Reports Mental (unknown) (no (unknown) (unknown) Retardation/Auti (units (unknown) date) sm and Reports unknown) Maternal Metabolic Disorder (EG,TYPE 1 Diabetes, (unknown) (no (unknown) (unknown) (spontaneous (units (unknown) date) vaginal delivery) unknown) (-02/02/18) (unknown) (no (unknown) (unknown) (spontaneous (units (unknown) date) vaginal delivery) unknown) (-07/04/19) (unknown) (no (unknown) (unknown) Signed By: (units (unk nown) date) unknown) (unknown) (no (unknown) (unknown) [place] (units ( unknown) date) 1 month : unknown) attempted induced hyper- (unknown) (no (unknown) (unknown) Sister No (units (unknown) date) problems noted. unknown) (unknown) (no (unknown) (unknown) Slipped (units (unkno wn) date) epiphysis unknown) (unknown) (no (unknown) (unknown) Smokeless (units (unkn own) date) tobacco user: unknown) dissolvable tobacco (unknown) (no (unknown) (unknown) Smoking Status: (units (unknown) date) Former smoker unknown) (unknown) (no (unknown) (unknown) Smoking/Tobacco (units (unknown) date) use: discussed unknown) (unknown) (no (unknown) (unknown) Social History (units (unknown) date) unknown) (unknown) (no (unknown) (unknown) Surgical History (units (unknown) date) (Updated 04/10/21 unknown) @ 11:29 by Karlene Figueroa RN) (unknown) (no (unknown) (unknown) Symptoms since (units (unknown) date) LMP: Reports unknown) amenorrhea, nausea, vomiting, fatigue, breast (unknown) (no (unknown) (unknown) Teratogen (units (unkn own) date) Exposures since unknown) LMP/Conception: Denies prescription medications, (unknown) (no (unknown) (unknown) Thalassemia (units (un known) date) unknown) (unknown) (no (unknown) (unknown) This note may (units ( unknown) date) have been all or unknown) partially generated using voice recognition (unknown) (no (unknown) (unknown) Tobacco + (units (unkn own) date) Substance Use unknown) (unknown) (no (unknown) (unknown) Tobacco Status (units (unknown) date) unknown) (unknown) (no (unknown) (unknown) Tobacco: How (units (u nknown) date) many years used: unknown) 2 (unknown) (no (unknown) (unknown) Toxoplasmosis (units ( unknown) date) precautions and unknown) Listeriosis prevention (unknown) (no (unknown) (unknown) Twin (units (unknown) date) (-03/20/21) unknown) (unknown) (no (unknown) (unknown) Type of (units (unkno wn) date) Delivery: unknown) (unknown) (no (unknown) (unknown) UProtein Movement (units (unknown) date) PreLabor FHR Fndl unknown) Ht Pres Edema Cerv Exam US/Comment Next Appt (unknown) (no (unknown) (unknown) Varicella/chicke (units (unknown) date) n pox status: unknown) previous disease (unknown) (no (unknown) (unknown) Visit Date: (units (un known) date) 09/05/21 Last unknown) Updated by: Fanny Brown MD (unknown) (no (unknown) (unknown) Visit Date: (units (un known) date) 09/17/21 Last unknown) Updated by: Fanny Brown MD (unknown) (no (unknown) (unknown) Visit Date: (units (un known) date) 09/30/21 Last unknown) Updated by: Fanny Brown MD (unknown) (no (unknown) (unknown) Visit Date: (units (un known) date) 10/14/21 Last unknown) Updated by: Fanny Brown MD (unknown) (no (unknown) (unknown) Visit Date: (units (un known) date) 10/22/21 Last unknown) Updated by: Fanny Brown MD (unknown) (no (unknown) (unknown) Visit Date: (units (un known) date) 04/11/21 Last unknown) Updated by: Fanny Brown (unknown) (no (unknown) (unknown) Visit Date: (units (un known) date) 05/13/21 Last unknown) Updated by: Fanny Brown (unknown) (no (unknown) (unknown) Visit Date: (units (un known) date) 06/10/21 Last unknown) Updated by: Fanny Brown (unknown) (no (unknown) (unknown) Visit Date: (units (un known) date) 07/09/21 Last unknown) Updated by: Fanny Brown MD (unknown) (no (unknown) (unknown) Visit Date: (units (un known) date) 08/07/21 Last unknown) Updated by: Fnany Brown MD (unknown) (no (unknown) (unknown) Visit Reasons: 6 (units (unknown) date) wk PP unknown) (unknown) (no (unknown) (unknown) Vitamins and (units (u nknown) date) iron, Diet and unknown) weight gain, Fish and mercury intake, Smoking, (unknown) (no (unknown) (unknown) WG (units (unkno wn) date) unknown) (unknown) (no (unknown) (unknown) Warning signs (units ( unknown) date) reviewed. kag unknown) (unknown) (no (unknown) (unknown) [place] teeth (units (u nknown) date) extracted (-2014) unknown) (unknown) (no (unknown) (unknown) Zika virus (units (unk nown) date) exposure: No unknown) (unknown) (no (unknown) (unknown) alcohol intake: (units (unknown) date) former unknown) (unknown) (no (unknown) (unknown) and Denies Other (units (unknown) date) unknown) (unknown) (no (unknown) (unknown) and (units (unknown) date) hemorrhage. She unknown) is currently on labetalol 100 mg twice a day. (unknown) (no (unknown) (unknown) anyone in either (units (unknown) date) family with: unknown) (unknown) (no (unknown) (unknown) around. (units (unkno wn) date) unknown) (unknown) (no (unknown) (unknown) baby B is AGA 26 (units (unknown) date) weeks 6 days. 2 unknown) lb 4 oz. placenta is grade 0. Plan: 1 hour (unknown) (no (unknown) (unknown) baby's positions (units (unknown) date) had changed. No unknown) leakage of fluid or vaginal bleeding. On (unknown) (no (unknown) (unknown) bleeding. On (units ( unknown) date) ultrasound: unknown) There is adequate amniotic fluid on either side of (unknown) (no (unknown) (unknown) caregiver/suppor (units (unknown) date) t person: No unknown) (unknown) (no (unknown) (unknown) contractions. (units ( unknown) date) On ultrasound: No unknown) tension on the membrane. heart rate A (unknown) (no (unknown) (unknown) current (units (unkno wn) date) occupational unknown) exposures/hazards : No (unknown) (no (unknown) (unknown) dichorionic (units (un known) date) diamniotic twins. unknown) Good movement of both babies. No leakage (unknown) (no (unknown) (unknown) dichorionic/diam (units (unknown) date) niotic twins. No unknown) complaints. She is feeling both babies move. (unknown) (no (unknown) (unknown) dichorionic/diam (units (unknown) date) niotic twins. unknown) She is scheduled for induction later this week. (unknown) (no (unknown) (unknown) dichorionic/diam (units (unknown) date) niotic twins. unknown) She is still having a little bit of nausea. Was (unknown) (no (unknown) (unknown) education level: (units (unknown) date) high school unknown) (unknown) (no (unknown) (unknown) pinky/lutheran: (units (unknown) date) [place] unknown) (unknown) (no (unknown) (unknown) movement. (units (unknown) date) No leakage of unknown) fluid or vaginal bleeding. No contractions. On (unknown) (no (unknown) (unknown) fluid on both (units (u nknown) date) sides of the unknown) membrane. Baby a is AGA 26 weeks 1 day. 1 lb 15 oz. (unknown) (no (unknown) (unknown) fluid volume. (units (u nknown) date) Plan: Start unknown) Celexa 10 mg p.o. q.day. follow-up in 4 weeks for OB (unknown) (no (unknown) (unknown) form signed for (units (unknown) date) induction. unknown) Warning signs reviewed. kag (unknown) (no (unknown) (unknown) glucose today. (units (unknown) date) Follow-up in 4 unknown) weeks. Warning signs reviewed. kag (unknown) (no (unknown) (unknown) has (units (unkno wn) date) dichorionic/diamn unknown) iotic twins. She is scheduled for induction October 25, (unknown) (no (unknown) (unknown) have occurred. (units (unknown) date) If there are any unknown) questions, please contact the Medical Records (unknown) (no (unknown) (unknown) household (units (unkn own) date) members: spouse unknown) and children (unknown) (no (unknown) (unknown) kag (units (unkno wn) date) unknown) (unknown) (no (unknown) (unknown) labetalol 100 mg (units (unknown) date) b.i.d. and baby unknown) aspirin. (unknown) (no (unknown) (unknown) lie. Baby A is (units (unknown) date) on the right and unknown) is a girl, baby B is on the left and is a boy. (unknown) (no (unknown) (unknown) lies down and (units ( unknown) date) drink some water. unknown) Good movement x2. She felt that the (unknown) (no (unknown) (unknown) m epidural (units (unk nown) date) unknown) (unknown) (no (unknown) (unknown) m epidural (units (unk nown) date) [place] unknown) (unknown) (no (unknown) (unknown) marital status: (units (unknown) date) unknown) (unknown) (no (unknown) (unknown) may occur. (units (unk nown) date) Occasional unknown) wrong-word or 'sound-alike' substitutions may have (unknown) (no (unknown) (unknown) needing CHRISTIAN soon (units (unknown) date) (multiple unknown) surgeries plus screws present). (unknown) (no (unknown) (unknown) number of (units (unkn own) date) children: 2 unknown) (unknown) (no (unknown) (unknown) occupational (units (u nknown) date) status: unknown) unemployed (unknown) (no (unknown) (unknown) occurred due to (units (unknown) date) the inherent unknown) limitations of voice recognition software. Please (unknown) (no (unknown) (unknown) of father in (units (u nknown) date) care and unknown) office visits (unknown) (no (unknown) (unknown) of fluid or (units (un known) date) vaginal bleeding. unknown) No contractions. On ultrasound: No tension on (unknown) (no (unknown) (unknown) on medication, (units ( unknown) date) sertraline 50 mg, unknown) for depression prior to the . She has (unknown) (no (unknown) (unknown) on the membrane. (units (unknown) date) Good heart unknown) rate in both sacs as well as good amniotic (unknown) (no (unknown) (unknown) oxycodone (units (unkn own) date) Adverse Reaction unknown) (Verified 10/22/21 13:51) (unknown) (no (unknown) (unknown) pets and (units (unkno wn) date) animals: No unknown) (unknown) (no (unknown) (unknown) placenta. Plan: (units (unknown) date) Follow-up in 2 unknown) weeks. Warning signs reviewed regarding (unknown) (no (unknown) (unknown) (units (unk nown) date) hemorrhage unknown) [place] (unknown) (no (unknown) (unknown) (units (unk nown) date) hemorrhage unknown) [place] (unknown) (no (unknown) (unknown) . (units (unkn own) date) unknown) (unknown) (no (unknown) (unknown) labor. (units (unknown) date) Warning signs unknown) reviewed regarding preeclampsia. kag (unknown) (no (unknown) (unknown) questions. MD (units ( unknown) date) address pls. unknown) (unknown) (no (unknown) (unknown) quit status: (units (u nknown) date) quit date unknown) established (unknown) (no (unknown) (unknown) read the note (units ( unknown) date) carefully and unknown) recognize, using context, where these substitutions (unknown) (no (unknown) (unknown) reviewed, (units (unkno wn) date) ultrasounds unknown) policy reviewed, coverage 24 hours a day and participation (unknown) (no (unknown) (unknown) second hand (units (un known) date) exposure: No unknown) (unknown) (no (unknown) (unknown) software. (units (unkn own) date) Although every unknown) effort is made to edit content, foster care case manager errors (unknown) (no (unknown) (unknown) some nausea and (units (unknown) date) vomiting. 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 (units ( unknown) date) She would like to unknown) go on something else. Ultrasound: No tension (unknown) (no (unknown) (unknown) substance use (units ( unknown) date) type: does not unknown) use (unknown) (no (unknown) (unknown) tenderness, (units (un known) date) urinary unknown) frequency, irritability, bloating and other (unknown) (no (unknown) (unknown) the membrane. (units ( unknown) date) Good amniotic unknown) fluid volume in both sacs. Plan: Follow-up in 4 (unknown) (no (unknown) (unknown) the membrane. (units ( unknown) date) No tension. unknown) Placenta is grade 0. Plan: Follow-up in 1 week. (unknown) (no (unknown) (unknown) twins. Good (units (un known) date) movement. unknown) No LOF or VB. No ctx's. U/S: A AGA 30w3d. 3#10oz (unknown) (no (unknown) (unknown) twins. She has (units (unknown) date) had some unknown) intermittent contractions nothing that lasts after she (unknown) (no (unknown) (unknown) ultrasound (units (unk nown) date) ordered. Warning unknown) signs reviewed. Follow-up in 4 weeks. (unknown) (no (unknown) (unknown) ultrasound: The (units (unknown) date) babies are both unknown) in the transverse lie. There is good amount of (unknown) (no (unknown) (unknown) ultrasound: (units (un known) date) Babies are vertex unknown) vertex, no tension on the membrane. Grade 0 (unknown) (no (unknown) (unknown) vertex (units (unkno wn) date) presentation. unknown) Placenta is grade 1. Plan: COVID test today. Consent (unknown) (no (unknown) (unknown) violence, (units (unkn own) date) Travel, Seatbelt unknown) use and Influenza vaccine (unknown) (no (unknown) (unknown) visit, (units (unkno wn) date) ultrasound, and unknown) quad screen. kag (unknown) (no (unknown) (unknown) weeks. Warning (units (unknown) date) signs reviewed. unknown) 1 hour glucose tolerance test ordered. Kag (unknown) (no (unknown) (unknown) wk (units (unkno wn) date) unknown) (unknown) (no (unknown) (unknown) wks (units (unkno wn) date) unknown) (unknown) (no (unknown) (unknown) work/environment (units (unknown) date) al/hazards, unknown) Sexual activity, X-ray exposure, Medication use, Result panel 2 (unknown) (no (unknown) (unknown) (no value) (units (unk nown) date) unknown) (unknown) (no (unknown) (unknown) *Induction. (units (un known) date) unknown) (unknown) (no (unknown) (unknown) *PPD : back into (units (unknown) date) Therapy, was put unknown) on Anxiety Rx. But better this time (unknown) (no (unknown) (unknown) *Severe PPD : (units ( unknown) date) Therapy and unknown) Medication. (unknown) (no (unknown) (unknown) Patient presents (units (unknown) date) for a new OB unknown) visit at 9 weeks with twins. She has had (unknown) (no (unknown) (unknown) Patient presents (units (unknown) date) for a routine OB unknown) visit at 18 weeks gestation with (unknown) (no (unknown) (unknown) Patient presents (units (unknown) date) for a routine unknown) visit at 14 weeks gestation with (unknown) (no (unknown) (unknown) Patient presents (units (unknown) date) for a routine unknown) visit at 22 weeks gestation with (unknown) (no (unknown) (unknown) Patient presents (units (unknown) date) for a routine unknown) visit at 26 weeks gestation. Jonh (unknown) (no (unknown) (unknown) Patient presents (units (unknown) date) for a routine unknown) visit at 30 weeks gestation with (unknown) (no (unknown) (unknown) Patient presents (units (unknown) date) for a routine unknown) visit at 32 weeks gestation with (unknown) (no (unknown) (unknown) Patient presents (units (unknown) date) for a routine unknown) visit at 36 weeks gestation. She (unknown) (no (unknown) (unknown) Patient presents (units (unknown) date) for a routine unknown) visit at 37 weeks gestation with (unknown) (no (unknown) (unknown) Pt presents for (units (unknown) date) a PNV at 34 weeks unknown) gestation. No c/o. Jonh FM x 2. No (unknown) (no (unknown) (unknown) (no value) (units (unk nown) date) unknown) (unknown) (no (unknown) (unknown) (no value) (units (unk nown) date) unknown) (unknown) (no (unknown) (unknown) (+12 lb) (units (unkno wn) date) 124/68 N unknown) (unknown) (no (unknown) (unknown) (+16 lb) (units (unkno wn) date) 126/68 N unknown) (unknown) (no (unknown) (unknown) (+28 lb) (units (unkno wn) date) 126/68 N unknown) (unknown) (no (unknown) (unknown) (+35 lb) (units (unkno wn) date) 128/60 N unknown) (unknown) (no (unknown) (unknown) (+41 lb) (units (unkno wn) date) 146/72 unknown) (unknown) (no (unknown) (unknown) (+50 lb) (units (unkno wn) date) 130/62 N unknown) (unknown) (no (unknown) (unknown) (+51 lb) (units (unkno wn) date) 122/62 N unknown) (unknown) (no (unknown) (unknown) (+61 lb) (units (unkno wn) date) 126/76 N unknown) (unknown) (no (unknown) (unknown) (+66 lb) (units (unkno wn) date) 131/76 unknown) (unknown) (no (unknown) (unknown) (+66 lb) (units (unkno wn) date) 136/68 N unknown) (unknown) (no (unknown) (unknown) (+66 lb) (units (unkno wn) date) unknown) (unknown) (no (unknown) (unknown) (+8 lb) (units (unkno wn) date) 120/68 N unknown) (unknown) (no (unknown) (unknown) 09/05/21 (units (unkno wn) date) unknown) (unknown) (no (unknown) (unknown) 09/17/21 (units (unkno wn) date) unknown) (unknown) (no (unknown) (unknown) 09/30/21 (units (unkno wn) date) unknown) (unknown) (no (unknown) (unknown) 10/14/21 (units (unkno wn) date) unknown) (unknown) (no (unknown) (unknown) 10/22/21 (units (unkno wn) date) unknown) (unknown) (no (unknown) (unknown) 10/24/21 (units (unkno wn) date) unknown) (unknown) (no (unknown) (unknown) 12/09/21 (units (unkno wn) date) unknown) (unknown) (no (unknown) (unknown) 02/02/18 40.2 (units ( unknown) date) 30 7 lb 4 oz unknown) Female vaginal live - full ter (unknown) (no (unknown) (unknown) 04/11/21 (units (unkno wn) date) unknown) (unknown) (no (unknown) (unknown) 05/13/21 (units (unkno wn) date) unknown) (unknown) (no (unknown) (unknown) 1+ No no (units (unknown) date) A 155 unknown) (unknown) (no (unknown) (unknown) 1+ Yes no (units (unknown) date) A 140 unknown) (unknown) (no (unknown) (unknown) 1+ Yes no (units (unknown) date) A 150 unknown) (unknown) (no (unknown) (unknown) 06/10/21 (units (unkno wn) date) unknown) (unknown) (no (unknown) (unknown) 07/04/19 38 (units (un known) date) 30 6 lb 2 oz unknown) Female vaginal live - full ter (unknown) (no (unknown) (unknown) 07/09/21 (units (unkno wn) date) unknown) (unknown) (no (unknown) (unknown) 08/07/21 (units (unkno wn) date) unknown) (unknown) (no (unknown) (unknown) 128/76 N (units (un known) date) unknown) (unknown) (no (unknown) (unknown) 141/67 (units (unkno wn) date) unknown) (unknown) (no (unknown) (unknown) 141/67 (units (unkno wn) date) unknown) (unknown) (no (unknown) (unknown) 14w 2d 257 lb (units (unknown) date) unknown) (unknown) (no (unknown) (unknown) 153/62 (units (unkno wn) date) unknown) (unknown) (no (unknown) (unknown) 15:50 (units (unkno wn) date) unknown) (unknown) (no (unknown) (unknown) 18w 2d 261 lb (units (unknown) date) unknown) (unknown) (no (unknown) (unknown) 22w 3d 273 lb (units (unknown) date) unknown) (unknown) (no (unknown) (unknown) 26w 4d 280 lb (units (unknown) date) unknown) (unknown) (no (unknown) (unknown) 30w 5d 286 lb (units (unknown) date) unknown) (unknown) (no (unknown) (unknown) 311 lb (units (unkno wn) date) unknown) (unknown) (no (unknown) (unknown) 32w 3d 296 lb (units (unknown) date) unknown) (unknown) (no (unknown) (unknown) 34w 2d 295 lb (units (unknown) date) unknown) (unknown) (no (unknown) (unknown) 36w 2d 306 lb (units (unknown) date) unknown) (unknown) (no (unknown) (unknown) 37w 3d 311 lb (units (unknown) date) unknown) (unknown) (no (unknown) (unknown) 38w 0d 311 lb (units (unknown) date) unknown) (unknown) (no (unknown) (unknown) 9w 5d 253 lb (units (unknown) date) unknown) (unknown) (no (unknown) (unknown) A (units (unkno wn) date) unknown) (unknown) (no (unknown) (unknown) [place] (units ( unknown) date) [id number] unknown) (unknown) (no (unknown) (unknown) Current Estimate (units (unknown) date) 11/09/21 unknown) LMP (Certain) 44w 2d (unknown) (no (unknown) (unknown) Diabetes (units (unkno wn) date) mellitus unknown) (unknown) (no (unknown) (unknown) Draft (units (unkno wn) date) unknown) (unknown) (no (unknown) (unknown) Drug addiction (units (unknown) date) in remission unknown) (unknown) (no (unknown) (unknown) Estimated (units (unkn own) date) Delivery Date unknown) Method Current (unknown) (no (unknown) (unknown) Family (units (unkno wn) date) estrangement unknown) (unknown) (no (unknown) (unknown) # 2 (units (u nknown) date) unknown) (unknown) (no (unknown) (unknown) [facility]) (unknown) (no (unknown) (unknown) History of ETOH (units (unknown) date) abuse unknown) (unknown) (no (unknown) (unknown) History of (units (unk nown) date) incarceration unknown) (unknown) (no (unknown) (unknown) Hypertension (units (u nknown) date) unknown) (unknown) (no (unknown) (unknown) N Yes no (units (unknown) date) A 131 unknown) (unknown) (no (unknown) (unknown) OB Office Visit (units (unknown) date) unknown) (unknown) (no (unknown) (unknown) Other Estimates (units (unknown) date) 11/14/21 unknown) Ultrasound #1 43w 4d (unknown) (no (unknown) (unknown) Skin cancer (units (un known) date) unknown) (unknown) (no (unknown) (unknown) TR No no (units (unknown) date) A 170 unknown) (unknown) (no (unknown) (unknown) TR Yes no (units (unknown) date) A 129 unknown) (unknown) (no (unknown) (unknown) TR Yes no (units (unknown) date) A 134 unknown) (unknown) (no (unknown) (unknown) TR Yes no (units (unknown) date) A 138 unknown) (unknown) (no (unknown) (unknown) TR Yes no (units (unknown) date) A 141 unknown) (unknown) (no (unknown) (unknown) TR Yes no (units (unknown) date) A 151 unknown) (unknown) (no (unknown) (unknown) kag (units (unkno wn) date) unknown) (unknown) (no (unknown) (unknown) (no value) (units (unk nown) date) unknown) (unknown) (no (unknown) (unknown) Genetic (units (unkn own) date) Screening/Teratol unknown) ogy Counseling - Includes patient, baby's father, or (unknown) (no (unknown) (unknown) -?-?-?-?-?-?-?-? (units (unknown) date) -?-?-?-?- unknown) (unknown) (no (unknown) (unknown) /environmental/h (units (unknown) date) azards, Sexual unknown) activity, X-ray exposure, Medication use, ETOH (unknown) (no (unknown) (unknown) [id number] (units (unkno wn) date) unknown) (unknown) (no (unknown) (unknown) 12/09/21 (units (unkno wn) date) unknown) (unknown) (no (unknown) (unknown) 12/09/21] (units (unkn own) date) unknown) (unknown) (no (unknown) (unknown) 1. : (units (unk nown) date) with unknown) Di/Di Twins. Boy/Girl (unknown) (no (unknown) (unknown) 10. PICA at 26 (units (unknown) date) weeks. Discussed unknown) PNV and iron (unknown) (no (unknown) (unknown) 11. *Special* (units (unknown) date) unknown) (unknown) (no (unknown) (unknown) 141 beats per (units ( unknown) date) minute. unknown) heart rate B 138 beats per minute. Both or in the (unknown) (no (unknown) (unknown) 2. H/O PIH with (units (unknown) date) both pregnancies unknown) and hemorrhage PP both times also. On (unknown) (no (unknown) (unknown) 2021. No (units (unkno wn) date) contractions. unknown) Good movement x2. No leakage of fluid or vaginal (unknown) (no (unknown) (unknown) 3. Thalassemia. (units (unknown) date) unknown) (unknown) (no (unknown) (unknown) 4. Hyperemesis (units (unknown) date) Gravidarum : unknown) Infusions have helped some. Zofran/Reglan (unknown) (no (unknown) (unknown) 49%ile. B AGA (units ( unknown) date) 30w0d 3#10oz unknown) 51%ile. No tension on membrane. Trans/Trans. Plan: (unknown) (no (unknown) (unknown) 5. Pre-diabetic (units (unknown) date) diagnosis February) 2020 (unknown) (no (unknown) (unknown) 6 week (units (unkno wn) date) - unknown) is getting vasectomy (unknown) (no (unknown) (unknown) 6. 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 (unknown) (no (unknown) (unknown) 8. Obesity : (units ( unknown) date) Prepping for unknown) Gastric Sleeve surgery when she found out she was (unknown) (no (unknown) (unknown) 9. H/O Left Hip (units (unknown) date) : slipped unknown) epiphysis (fractured that hip also) with Hardware (unknown) (no (unknown) (unknown) Abnormal lab (units (u nknown) date) values 1st unknown) trimester: discussed (unknown) (no (unknown) (unknown) Add'l Plan (units (unk nown) date) Details unknown) (unknown) (no (unknown) (unknown) Age at menarche: (units (unknown) date) 16 unknown) (unknown) (no (unknown) (unknown) Age/Sex: 25 / F (units (unknown) date) Date of unknown) Service: (unknown) (no (unknown) (unknown) Allergies (units (unkn own) date) unknown) (unknown) (no (unknown) (unknown) Anemia (units (unkno wn) date) unknown) (unknown) (no (unknown) (unknown) Anesthesia (units (unk nown) date) unknown) (unknown) (no (unknown) (unknown) Aneuploidy (units (unk nown) date) Screening unknown) Offered: Accepted (unknown) (no (unknown) (unknown) Anticipated (units (un known) date) course of unknown) care: discussed (unknown) (no (unknown) (unknown) Assessment and (units (unknown) date) Plan unknown) (unknown) (no (unknown) (unknown) Attending Dr: (units ( unknown) date) Fanny Brown unknown) (unknown) (no (unknown) (unknown) B Transverse (units (unknown) date) absent 2 unknown) wks (unknown) (no (unknown) (unknown) B Transverse (units (unknown) date) absent 4 unknown) wks (unknown) (no (unknown) (unknown) B Vertex (units (u nknown) date) 1+ 2 wks unknown) (unknown) (no (unknown) (unknown) B Vertex (units (u nknown) date) 1+ 3d unknown) (unknown) (no (unknown) (unknown) B Vertex (units (u nknown) date) 1+ cl/75/soft unknown) 1 (unknown) (no (unknown) (unknown) B 138 49 (units (unknown) date) A Vertex unknown) (unknown) (no (unknown) (unknown) B 142 27 (units (unknown) date) A Transverse unknown) (unknown) (no (unknown) (unknown) B 144 47 (units (unknown) date) A Vertex unknown) (unknown) (no (unknown) (unknown) B 148 37 (units (unknown) date) A Transverse unknown) (unknown) (no (unknown) (unknown) B 148 43 (units (unknown) date) A Vertex unknown) (unknown) (no (unknown) (unknown) B 151 24 (units (unknown) date) A Transverse unknown) (unknown) (no (unknown) (unknown) B 153 17 (units (unknown) date) A Transverse unknown) (unknown) (no (unknown) (unknown) B 178 12 (units (unknown) date) A N/A unknown) (unknown) (no (unknown) (unknown) B 29 31 (units ( unknown) date) A Transverse unknown) (unknown) (no (unknown) (unknown) B 51 39 (units ( unknown) date) A Vertex unknown) (unknown) (no (unknown) (unknown) B A (units (unkno wn) date) unknown) (unknown) (no (unknown) (unknown) B N/A (units (unkno wn) date) absent unknown) long/closed AGA 9w0d 4 (unknown) (no (unknown) (unknown) B (units (unkno wn) date) unknown) (unknown) (no (unknown) (unknown) BMI 46.8 (units (un known) date) unknown) (unknown) (no (unknown) (unknown) BP 130/78 (units (u nknown) date) unknown) (unknown) (no (unknown) (unknown) 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 (unknown) (no (unknown) (unknown) (units (unkno wn) date) Plan/Preferences unknown) (unknown) (no (unknown) (unknown) Planning (units (unknown) date) unknown) (unknown) (no (unknown) (unknown) control (units ( unknown) date) method:: other unknown) ( vasectomy) (unknown) (no (unknown) (unknown) Blood Pressure (units (unknown) date) Location Lt unknown) brachial (unknown) (no (unknown) (unknown) Blood (units (unkno wn) date) transfusions?: unknown) yes (unknown) (no (unknown) (unknown) Breastfeed (units (unk nown) date) Preg Comp Name unknown) (unknown) (no (unknown) (unknown) Brother No (units (unknown) date) problems noted. unknown) (unknown) (no (unknown) (unknown) Caffeine use, (units ( unknown) date) Eating disorder unknown) history, Exercise and activity, work (unknown) (no (unknown) (unknown) Childbirth (units (unk nown) date) Classes: unknown) discussed (unknown) (no (unknown) (unknown) Confirmed (units (unkn own) date) 12/09/21] unknown) (unknown) (no (unknown) (unknown) Current (units (unkno wn) date) History unknown) (unknown) (no (unknown) (unknown) : 1995 (units (unknown) date) Acct:[id number] unknown) (unknown) (no (unknown) (unknown) Date (units (unkno wn) date) unknown) (unknown) (no (unknown) (unknown) Date of positive (units (unknown) date) home unknown) test: 03/03/21 (unknown) (no (unknown) (unknown) Del. Date (units (unkn own) date) GA/Weeks Labor unknown) Lgth Wt Sex Route Outcome Anesthesia Place (unknown) (no (unknown) (unknown) Delivery Date: (units (unknown) date) 10/25/21 unknown) (unknown) (no (unknown) (unknown) Delivery Date: (units (unknown) date) 02/02/18 Last unknown) Updated by: Karlene Figueroa R.N. (unknown) (no (unknown) (unknown) Delivery Date: (units (unknown) date) 07/04/19 Last unknown) Updated by: Karlene Figueroa R.N. (unknown) (no (unknown) (unknown) Delv (units (unkno wn) date) unknown) (unknown) (no (unknown) (unknown) Denies Congenital (units (unknown) date) Heart Defect, unknown) Denies Down Syndrome, Denies Muscular Dystrophy, (unknown) (no (unknown) (unknown) Denies (units (unkno wn) date) Hemophilia or unknown) other blood disorders, Denies Cystic Fibrosis, Denies (unknown) (no (unknown) (unknown) Denies Neural (units ( unknown) date) Tube Defect unknown) (Meningomyelocele , Spina Bifida, or Anencephaly), (unknown) (no (unknown) (unknown) Denies Patient (units (unknown) date) or baby's father unknown) had a child with defects not listed above (unknown) (no (unknown) (unknown) Denies Edgardo-Sachs (units (unknown) date) (Ashkenazi unknown) Oriental Orthodox, Cajun, Taiwanese Panamanian), Denies Patricia (unknown) (no (unknown) (unknown) Denies other (units (u nknown) date) unknown) (unknown) (no (unknown) (unknown) Denies over the (units (unknown) date) counter unknown) medications, Denies alcohol, Denies illicit drugs and (unknown) (no (unknown) (unknown) Depression: (units (un known) date) discussed unknown) (unknown) (no (unknown) (unknown) Dept at (units (unkno wn) date) . unknown) (unknown) (no (unknown) (unknown) Disease (units (unkno wn) date) (Ashkenazi unknown) Oriental Orthodox), Denies Familial Dysautonomia (Ashkenazi Oriental Orthodox), (unknown) (no (unknown) (unknown) Documented By: (units (unknown) date) Fanny Brown unknownNishi BEVERLY 12/09/21 1543 (unknown) (no (unknown) (unknown) Domestic (units (unkno wn) date) violence: unknown) discussed (unknown) (no (unknown) (unknown) DORITA Calculator (units (unknown) date) unknown) (unknown) (no (unknown) (unknown) EGA Weight BP (units ( unknown) date) UGlucose unknown) (unknown) (no (unknown) (unknown) Family History (units (unknown) date) (Updated 04/10/21 unknown) @ 10:45 by Karlene Figueroa RN) (unknown) (no (unknown) (unknown) Father (units (unkno wn) date) MVA unknown) (motor vehicle accident) (unknown) (no (unknown) (unknown) Father of Baby: (units (unknown) date) as above unknown) (unknown) (no (unknown) (unknown) Feeding: breast (units (unknown) date) and bottle and unknown) other (formula supplement) (unknown) (no (unknown) (unknown) heart (units (un known) date) rates 150/151 unknown) respectively. Plan: Quad screen today. Twenty week (unknown) (no (unknown) (unknown) First Trimester (units (unknown) date) Education unknown) Checklist (unknown) (no (unknown) (unknown) Genetic (units (unkno wn) date) Screening unknown) (unknown) (no (unknown) (unknown) Genetic (units (unkno wn) date) Screening + unknown) Counseling (unknown) (no (unknown) (unknown) Good AFV. Plan: (units (unknown) date) F/U 1 wk. Warning unknown) signs reviewed. kag (unknown) (no (unknown) (unknown) Good (units (unk nown) date) movement x2. No unknown) leakage of fluid or vaginal bleeding. No regular (unknown) (no (unknown) (unknown) Grandfather (units (un known) date) Cancer unknown) (unknown) (no (unknown) (unknown) Grandfather (units (un known) date) Family unknown) estrangement (unknown) (no (unknown) (unknown) Grandmother (units (un known) date) Arthritis unknown) (unknown) (no (unknown) (unknown) Grandmother (units (un known) date) Cancer unknown) (unknown) (no (unknown) (unknown) 3 (units (unknown) date) Multiple unknown) births 0 (unknown) (no (unknown) (unknown) : 3 (units (unk nown) date) unknown) (unknown) (no (unknown) (unknown) H+H ordered. (units (u nknown) date) COVID test in 1 unknown) week prior to induction. Warning signs reviewed. (unknown) (no (unknown) (unknown) HIV risk (units (unkno wn) date) evaluation: low unknown) risk (unknown) (no (unknown) (unknown) Health Center (units ( unknown) date) Education unknown) (unknown) (no (unknown) (unknown) Health center (units ( unknown) date) information: unknown) nature of practice discussed, visit schedule (unknown) (no (unknown) (unknown) Heavy menstrual (units (unknown) date) period unknown) (unknown) (no (unknown) (unknown) Height 5 ft (units (unknown) date) 4.8 in unknown) (unknown) (no (unknown) (unknown) Hemorrhage, (units (un known) date) immediate unknown) (unknown) (no (unknown) (unknown) Hepatitis C risk (units (unknown) date) evaluation: low unknown) risk (unknown) (no (unknown) (unknown) Herpes (units (unkno wn) date) () unknown) (unknown) (no (unknown) (unknown) Hip fracture, (units ( unknown) date) left unknown) (unknown) (no (unknown) (unknown) History of (units (unk nown) date) Hepatitis B: No unknown) (unknown) (no (unknown) (unknown) History of (units (unk nown) date) Hepatitis C: No unknown) (unknown) (no (unknown) (unknown) History of hip (units (unknown) date) surgery unknown) (unknown) (no (unknown) (unknown) History of (units (unk nown) date) prediabetes unknown) (unknown) (no (unknown) (unknown) History/Interim (units (unknown) date) Details unknown) (unknown) (no (unknown) (unknown) [place]'s (units (u nknown) date) Chorea, Denies unknown) Other inherited genetic or chromosomal disorder, (unknown) (no (unknown) (unknown) Hx # (units (u nknown) date) Pregnancies unknown) 0 Elective abortions 0 (unknown) (no (unknown) (unknown) Hx # Term (units (unkn own) date) Pregnancies unknown) 2 Ectopic pregnancies 0 (unknown) (no (unknown) (unknown) Hyperemesis (units (un known) date) gravidarum unknown) () (unknown) (no (unknown) (unknown) Induction (units (unkn own) date) 10/28/21. Warning unknown) signs reviewed. F/U 2 wks. kag (unknown) (no (unknown) (unknown) Longest (units (unknown) date) Sleep: 4 hours unknown) (unknown) (no (unknown) (unknown) Infant's Name: (units (unknown) date) Georgiana and Devin unknown) (unknown) (no (unknown) (unknown) Infection (units (unkn own) date) History unknown) (unknown) (no (unknown) (unknown) Infection (units (unkn own) date) history comments: unknown) Considering Covid vaccination: many concerns and (unknown) (no (unknown) (unknown) Infectious (units (unk nown) date) Disease Education unknown) (unknown) (no (unknown) (unknown) Infectious (units (unk nown) date) disease exposure: unknown) chicken pox immunity discussed, CMV discussed, (unknown) (no (unknown) (unknown) Initial Weight: (units (unknown) date) 245 lb unknown) (unknown) (no (unknown) (unknown) Initials (units (unkno wn) date) unknown) (unknown) (no (unknown) (unknown) Intake (units (unkno wn) date) unknown) (unknown) (no (unknown) (unknown) Intake Clinical (units (unknown) date) Staff unknown) (unknown) (no (unknown) (unknown) Intake Note: (units (u nknown) date) unknown) (unknown) (no (unknown) (unknown) Intake performed (units (unknown) date) by: unknown) Rupinder Hauser (unknown) (no (unknown) (unknown) Interim (units ( unknown) date) control method: unknown) Reports other ( vasectomy) (unknown) (no (unknown) (unknown) LOF/VB/Ctx's. (units (u nknown) date) US: Vertex/vertex unknown) A AGA 33w2d B 34w2d. No tension on membrane. (unknown) (no (unknown) (unknown) Live with (units (unkn own) date) someone with TB unknown) or exposed to TB: No (unknown) (no (unknown) (unknown) Loc: [facility] (units (unkno wn) date) unknown) (unknown) (no (unknown) (unknown) Marijuana use: (units (unknown) date) discussed unknown) (unknown) (no (unknown) (unknown) Marital status: (units (unknown) date) unknown) (unknown) (no (unknown) (unknown) Medical History (units (unknown) date) (Updated 11/05/21 unknown) @ 21:26 by Fanny Brown MD) (unknown) (no (unknown) (unknown) Medications (units (un known) date) unknown) (unknown) (no (unknown) (unknown) Menstrual (units (unkn own) date) History unknown) (unknown) (no (unknown) (unknown) Menstrual cycle (units (unknown) date) length: Regular unknown) (unknown) (no (unknown) (unknown) Mother Bipolar (units (unknown) date) 1 disorder unknown) (unknown) (no (unknown) (unknown) Naval, [place] 15 (units (unknown) date) months unknown) induced hyper- (unknown) (no (unknown) (unknown) Notes (units (unkno wn) date) unknown) (unknown) (no (unknown) (unknown) Number of Living (units (unknown) date) Children 2 unknown) (unknown) (no (unknown) (unknown) Number of Weeks (units (unknown) date) Post : 6 unknown) (unknown) (no (unknown) (unknown) Number of (units (unkn own) date) fetuses:: Twins unknown) (unknown) (no (unknown) (unknown) Nutrition and (units ( unknown) date) weight gain unknown) counseling: special diet: discussed (unknown) (no (unknown) (unknown) OB Visit Log (units (u nknown) date) unknown) (unknown) (no (unknown) (unknown) Obesity (units (unkno wn) date) unknown) (unknown) (no (unknown) (unknown) On control (units (unknown) date) at conception?: unknown) No (IUD (Mirena) 'fell out' early January) (unknown) (no (unknown) (unknown) On ultrasound: (units (unknown) date) No tension on the unknown) membrane. Both babies are in the transverse (unknown) (no (unknown) (unknown) PFSH (units (unkno wn) date) unknown) (unknown) (no (unknown) (unknown) PKU); (units (unkno wn) date) unknown) (unknown) (no (unknown) (unknown) Para 4 (units ( unknown) date) Spontaneous unknown) abortions 0 (unknown) (no (unknown) (unknown) Para: 4 (units (unkno wn) date) unknown) (unknown) (no (unknown) (unknown) Partner history (units (unknown) date) of STD: denies hx unknown) (unknown) (no (unknown) (unknown) Partner history (units (unknown) date) of genital unknown) herpes: No ('He tested Negative', per patient) (unknown) (no (unknown) (unknown) Partner: Devin (units ( unknown) date) Manny unknown) (unknown) (no (unknown) (unknown) Past Pregnancies (units (unknown) date) unknown) (unknown) (no (unknown) (unknown) Patient's age 36 (units (unknown) date) years or older as unknown) of estimated date of delivery: No (unknown) (no (unknown) (unknown) Patient: (units (unkno wn) date) Zev Bryant R unknown) MR#: [id number] (unknown) (no (unknown) (unknown) Personal history (units (unknown) date) of STD: other unknown) (unknown) (no (unknown) (unknown) Personal history (units (unknown) date) of genital unknown) herpes: Yes (Recent diagnosis : HSV-16 November 2020) (unknown) (no (unknown) (unknown) Plan: Add baby (units (unknown) date) aspirin. unknown) Continue infusions as needed. Follow-up in 4 weeks. (unknown) (no (unknown) (unknown) Position (units (unkno wn) date) Sitting unknown) (unknown) (no (unknown) (unknown) Post (units (un known) date) unknown) (unknown) (no (unknown) (unknown) Post (units (un known) date) Order Checklist unknown) (unknown) (no (unknown) (unknown) (units (unkn own) date) History unknown) (unknown) (no (unknown) (unknown) type:: (units (unknown) date) Other Normal unknown) (unknown) (no (unknown) (unknown) (units (unkno wn) date) Education unknown) (unknown) (no (unknown) (unknown) Initial (units (unknown) date) Assessment unknown) (unknown) (no (unknown) (unknown) (units (unkno wn) date) Specific unknown) Issues/Plans (unknown) (no (unknown) (unknown) (units (unkno wn) date) Testing: unknown) discussed (unknown) (no (unknown) (unknown) Visit (units (unknown) date) unknown) (unknown) (no (unknown) (unknown) (units (unkno wn) date) education packet: unknown) Child education/plan, symptoms, (unknown) (no (unknown) (unknown) Primary Ob (units (unk nown) date) Provider: unknown) Fanny Brown (unknown) (no (unknown) (unknown) Prior (units (unkno wn) date) GBS-Infected unknown) child: No (unknown) (no (unknown) (unknown) Providers (units (unkn own) date) unknown) (unknown) (no (unknown) (unknown) ROS (units (unkno wn) date) unknown) (unknown) (no (unknown) (unknown) Rash or viral (units ( unknown) date) illness since unknown) last menstrual period: No (unknown) (no (unknown) (unknown) Reason For Visit (units (unknown) date) unknown) (unknown) (no (unknown) (unknown) Recent travel (units ( unknown) date) outside of unknown) country?: No (unknown) (no (unknown) (unknown) Recurrent (units (unkn own) date) loss or unknown) a stillbirth: No (unknown) (no (unknown) (unknown) Reports Sickle (units (unknown) date) Cell Disease or unknown) Trait (), Reports Mental (unknown) (no (unknown) (unknown) Retardation/Auti (units (unknown) date) sm and Reports unknown) Maternal Metabolic Disorder (EG,TYPE 1 Diabetes, (unknown) (no (unknown) (unknown) (spontaneous (units (unknown) date) vaginal delivery) unknown) (02/02/18) (unknown) (no (unknown) (unknown) (spontaneous (units (unknown) date) vaginal delivery) unknown) (07/04/19) (unknown) (no (unknown) (unknown) Signed By: (units (unk nown) date) unknown) (unknown) (no (unknown) (unknown) [place] (units ( unknown) date) 1 month : unknown) attempted induced hyper- (unknown) (no (unknown) (unknown) Sister No (units (unknown) date) problems noted. unknown) (unknown) (no (unknown) (unknown) Slipped (units (unkno wn) date) epiphysis unknown) (unknown) (no (unknown) (unknown) Smokeless (units (unkn own) date) tobacco user: unknown) dissolvable tobacco (unknown) (no (unknown) (unknown) Smoking Status: (units (unknown) date) Former smoker unknown) (unknown) (no (unknown) (unknown) Smoking/Tobacco (units (unknown) date) use: discussed unknown) (unknown) (no (unknown) (unknown) Social History (units (unknown) date) unknown) (unknown) (no (unknown) (unknown) Surgical History (units (unknown) date) (Updated 04/10/21 unknown) @ 11:29 by Karlene Figueroa RN) (unknown) (no (unknown) (unknown) Symptoms since (units (unknown) date) LMP: Reports unknown) amenorrhea, nausea, vomiting, fatigue, breast (unknown) (no (unknown) (unknown) Teratogen (units (unkn own) date) Exposures since unknown) LMP/Conception: Denies prescription medications, (unknown) (no (unknown) (unknown) Thalassemia (units (un known) date) unknown) (unknown) (no (unknown) (unknown) This note may (units ( unknown) date) have been all or unknown) partially generated using voice recognition (unknown) (no (unknown) (unknown) Tobacco + (units (unkn own) date) Substance Use unknown) (unknown) (no (unknown) (unknown) Tobacco Status (units (unknown) date) unknown) (unknown) (no (unknown) (unknown) Tobacco: How (units (u nknown) date) many years used: unknown) 2 (unknown) (no (unknown) (unknown) Toxoplasmosis (units ( unknown) date) precautions and unknown) Listeriosis prevention (unknown) (no (unknown) (unknown) Twin (units (unknown) date) (-03/20/21) unknown) (unknown) (no (unknown) (unknown) Type of (units (unkno wn) date) Delivery: unknown) (unknown) (no (unknown) (unknown) UProtein Movement (units (unknown) date) PreLabor FHR Fndl unknown) Ht Pres Edema Cerv Exam US/Comment Next Appt (unknown) (no (unknown) (unknown) Varicella/chicke (units (unknown) date) n pox status: unknown) previous disease (unknown) (no (unknown) (unknown) Visit Date: (units (un known) date) 09/05/21 Last unknown) Updated by: Fanny Brown MD (unknown) (no (unknown) (unknown) Visit Date: (units (un known) date) 09/17/21 Last unknown) Updated by: Fanny Brown MD (unknown) (no (unknown) (unknown) Visit Date: (units (un known) date) 09/30/21 Last unknown) Updated by: Fanny Brown MD (unknown) (no (unknown) (unknown) Visit Date: (units (un known) date) 10/14/21 Last unknown) Updated by: Fanny Brown MD (unknown) (no (unknown) (unknown) Visit Date: (units (un known) date) 10/22/21 Last unknown) Updated by: Fanny Brown MD (unknown) (no (unknown) (unknown) Visit Date: (units (un known) date) 04/11/21 Last unknown) Updated by: Fanny Brown (unknown) (no (unknown) (unknown) Visit Date: (units (un known) date) 05/13/21 Last unknown) Updated by: Fanny Brown (unknown) (no (unknown) (unknown) Visit Date: (units (un known) date) 06/10/21 Last unknown) Updated by: Fanny Brown (unknown) (no (unknown) (unknown) Visit Date: (units (un known) date) 07/09/21 Last unknown) Updated by: Fanny Brown MD (unknown) (no (unknown) (unknown) Visit Date: (units (un known) date) 08/07/21 Last unknown) Updated by: Fanny Borwn MD (unknown) (no (unknown) (unknown) Visit Reasons: 6 (units (unknown) date) wk PP unknown) (unknown) (no (unknown) (unknown) Vitals (units (unkno wn) date) unknown) (unknown) (no (unknown) (unknown) Vitamins and (units (u nknown) date) iron, Diet and unknown) weight gain, Fish and mercury intake, Smoking, (unknown) (no (unknown) (unknown) WG (units (unkno wn) date) unknown) (unknown) (no (unknown) (unknown) Warning signs (units ( unknown) date) reviewed. kag unknown) (unknown) (no (unknown) (unknown) Weight 280 lb (units (unknown) date) unknown) (unknown) (no (unknown) (unknown) [place] teeth (units (u nknown) date) extracted () unknown) (unknown) (no (unknown) (unknown) Zika virus (units (unk nown) date) exposure: No unknown) (unknown) (no (unknown) (unknown) alcohol intake: (units (unknown) date) former unknown) (unknown) (no (unknown) (unknown) and Denies Other (units (unknown) date) unknown) (unknown) (no (unknown) (unknown) and (units (unknown) date) hemorrhage. She unknown) is currently on labetalol 100 mg twice a day. (unknown) (no (unknown) (unknown) anyone in either (units (unknown) date) family with: unknown) (unknown) (no (unknown) (unknown) around. (units (unkno wn) date) unknown) (unknown) (no (unknown) (unknown) baby B is AGA 26 (units (unknown) date) weeks 6 days. 2 unknown) lb 4 oz. placenta is grade 0. Plan: 1 hour (unknown) (no (unknown) (unknown) baby's positions (units (unknown) date) had changed. No unknown) leakage of fluid or vaginal bleeding. On (unknown) (no (unknown) (unknown) bleeding. On (units ( unknown) date) ultrasound: unknown) There is adequate amniotic fluid on either side of (unknown) (no (unknown) (unknown) caregiver/suppor (units (unknown) date) t person: No unknown) (unknown) (no (unknown) (unknown) contractions. (units ( unknown) date) On ultrasound: No unknown) tension on the membrane. heart rate A (unknown) (no (unknown) (unknown) current (units (unkno wn) date) occupational unknown) exposures/hazards : No (unknown) (no (unknown) (unknown) dichorionic (units (un known) date) diamniotic twins. unknown) Good movement of both babies. No leakage (unknown) (no (unknown) (unknown) dichorionic/diam (units (unknown) date) niotic twins. No unknown) complaints. She is feeling both babies move. (unknown) (no (unknown) (unknown) dichorionic/diam (units (unknown) date) niotic twins. unknown) She is scheduled for induction later this week. (unknown) (no (unknown) (unknown) dichorionic/diam (units (unknown) date) niotic twins. unknown) She is still having a little bit of nausea. Was (unknown) (no (unknown) (unknown) education level: (units (unknown) date) high school unknown) (unknown) (no (unknown) (unknown) escitalopram (units (u nknown) date) oxalate 10 mg unknown) tablet (Lexapro) 10 mg PO DAILY #45 tab 09/19/21 [Rx (unknown) (no (unknown) (unknown) pinky/lutheran: (units (unknown) date) Mosque unknown) (unknown) (no (unknown) (unknown) movement. (units (unknown) date) No leakage of unknown) fluid or vaginal bleeding. No contractions. On (unknown) (no (unknown) (unknown) fluid on both (units (u nknown) date) sides of the unknown) membrane. Baby a is AGA 26 weeks 1 day. 1 lb 15 oz. (unknown) (no (unknown) (unknown) fluid volume. (units (u nknown) date) Plan: Start unknown) Celexa 10 mg p.o. q.day. follow-up in 4 weeks for OB (unknown) (no (unknown) (unknown) form signed for (units (unknown) date) induction. unknown) Warning signs reviewed. kag (unknown) (no (unknown) (unknown) glucose today. (units (unknown) date) Follow-up in 4 unknown) weeks. Warning signs reviewed. kag (unknown) (no (unknown) (unknown) has (units (unkno wn) date) dichorionic/diamn unknown) iotic twins. She is scheduled for induction October 25, (unknown) (no (unknown) (unknown) have occurred. (units (unknown) date) If there are any unknown) questions, please contact the Medical Records (unknown) (no (unknown) (unknown) household (units (unkn own) date) members: spouse unknown) and children (unknown) (no (unknown) (unknown) hydroxyzine HCl (units (unknown) date) 25 mg tablet 25 unknown) mg PO QID PRN #30 tab 08/07/21 [Rx Confirmed (unknown) (no (unknown) (unknown) kag (units (unkno wn) date) unknown) (unknown) (no (unknown) (unknown) labetalol 100 mg (units (unknown) date) b.i.d. and baby unknown) aspirin. (unknown) (no (unknown) (unknown) labetalol 100 mg (units (unknown) date) tablet 200 mg PO unknown) BID 10/05/21 [History Confirmed 12/09/21] (unknown) (no (unknown) (unknown) lie. Baby A is (units (unknown) date) on the right and unknown) is a girl, baby B is on the left and is a boy. (unknown) (no (unknown) (unknown) lies down and (units ( unknown) date) drink some water. unknown) Good movement x2. She felt that the (unknown) (no (unknown) (unknown) m epidural (units (unk nown) date) unknown) (unknown) (no (unknown) (unknown) m epidural (units (unk nown) date) [place] unknown) (unknown) (no (unknown) (unknown) marital status: (units (unknown) date) unknown) (unknown) (no (unknown) (unknown) may occur. (units (unk nown) date) Occasional unknown) wrong-word or 'sound-alike' substitutions may have (unknown) (no (unknown) (unknown) needing CHRISTIAN soon (units (unknown) date) (multiple unknown) surgeries plus screws present). (unknown) (no (unknown) (unknown) number of (units (unkn own) date) children: 2 unknown) (unknown) (no (unknown) (unknown) occupational (units (u nknown) date) status: unknown) unemployed (unknown) (no (unknown) (unknown) occurred due to (units (unknown) date) the inherent unknown) limitations of voice recognition software. Please (unknown) (no (unknown) (unknown) of father in (units (u nknown) date) care and unknown) office visits (unknown) (no (unknown) (unknown) of fluid or (units (un known) date) vaginal bleeding. unknown) No contractions. On ultrasound: No tension on (unknown) (no (unknown) (unknown) on medication, (units ( unknown) date) sertraline 50 mg, unknown) for depression prior to the . She has (unknown) (no (unknown) (unknown) on the membrane. (units (unknown) date) Good heart unknown) rate in both sacs as well as good amniotic (unknown) (no (unknown) (unknown) oxycodone (units (unkn own) date) Adverse Reaction unknown) (Verified 12/09/21 15:49) (unknown) (no (unknown) (unknown) pap: 06/2020 (units (u nknown) date) NIL, had 1 unknown) abnormal about 3 years ago (unknown) (no (unknown) (unknown) pets and (units (unkno wn) date) animals: No unknown) (unknown) (no (unknown) (unknown) placenta. Plan: (units (unknown) date) Follow-up in 2 unknown) weeks. Warning signs reviewed regarding (unknown) (no (unknown) (unknown) (units (unk nown) date) hemorrhage unknown) [place] (unknown) (no (unknown) (unknown) (units (unk nown) date) hemorrhage unknown) Luciano (unknown) (no (unknown) (unknown) . (units (unkn own) date) unknown) (unknown) (no (unknown) (unknown) prenat.vits,carlee, (units (unknown) date) [id number] 1 unknown) tab PO DAILY 04/10/21 [History Confirmed (unknown) (no (unknown) (unknown) labor. (units (unknown) date) Warning signs unknown) reviewed regarding preeclampsia. kag (unknown) (no (unknown) (unknown) questions. (units ( unknown) date) address pls. unknown) (unknown) (no (unknown) (unknown) quit status: (units (u nknown) date) quit date unknown) established (unknown) (no (unknown) (unknown) read the note (units ( unknown) date) carefully and unknown) recognize, using context, where these substitutions (unknown) (no (unknown) (unknown) reviewed, (units (unkno wn) date) ultrasounds unknown) policy reviewed, coverage 24 hours a day and participation (unknown) (no (unknown) (unknown) second hand (units (un known) date) exposure: No unknown) (unknown) (no (unknown) (unknown) software. (units (unkn own) date) Although every unknown) effort is made to edit content, foster care case manager errors (unknown) (no (unknown) (unknown) some nausea and (units (unknown) date) vomiting. 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 (units ( unknown) date) She would like to unknown) go on something else. Ultrasound: No tension (unknown) (no (unknown) (unknown) substance use (units ( unknown) date) type: does not unknown) use (unknown) (no (unknown) (unknown) tenderness, (units (un known) date) urinary unknown) frequency, irritability, bloating and other (unknown) (no (unknown) (unknown) the membrane. (units ( unknown) date) Good amniotic unknown) fluid volume in both sacs. Plan: Follow-up in 4 (unknown) (no (unknown) (unknown) the membrane. (units ( unknown) date) No tension. unknown) Placenta is grade 0. Plan: Follow-up in 1 week. (unknown) (no (unknown) (unknown) twins. Good (units (un known) date) movement. unknown) No LOF or VB. No ctx's. U/S: A AGA 30w3d. 3#10oz (unknown) (no (unknown) (unknown) twins. She has (units (unknown) date) had some unknown) intermittent contractions nothing that lasts after she (unknown) (no (unknown) (unknown) ultrasound (units (unk nown) date) ordered. Warning unknown) signs reviewed. Follow-up in 4 weeks. (unknown) (no (unknown) (unknown) ultrasound: The (units (unknown) date) babies are both unknown) in the transverse lie. There is good amount of (unknown) (no (unknown) (unknown) ultrasound: (units (un known) date) Babies are vertex unknown) vertex, no tension on the membrane. Grade 0 (unknown) (no (unknown) (unknown) use, Sauna/hot (units (unknown) date) tub use, Dental unknown) care, Marijuana use, Substance use, Domestic (unknown) (no (unknown) (unknown) vertex (units (unkno wn) date) presentation. unknown) Placenta is grade 1. Plan: COVID test today. Consent (unknown) (no (unknown) (unknown) violence, (units (unkn own) date) Travel, Seatbelt unknown) use and Influenza vaccine (unknown) (no (unknown) (unknown) visit, (units (unkno wn) date) ultrasound, and unknown) quad screen. kag (unknown) (no (unknown) (unknown) weeks. Warning (units (unknown) date) signs reviewed. unknown) 1 hour glucose tolerance test ordered. Kag (unknown) (no (unknown) (unknown) wk (units (unkno wn) date) unknown) (unknown) (no (unknown) (unknown) wks (units (unkno wn) date) unknown) Result panel 3 (unknown) (no (unknown) (unknown) (no value) (units (unk nown) date) unknown) (unknown) (no (unknown) (unknown) *Induction. (units (un known) date) unknown) (unknown) (no (unknown) (unknown) *PPD : back into (units (unknown) date) Therapy, was put on unknown) Anxiety Rx. But better this time (unknown) (no (unknown) (unknown) *Severe PPD : (units ( unknown) date) Therapy and unknown) Medication. (unknown) (no (unknown) (unknown) Orders: (units (unkno wn) date) unknown) (unknown) (no (unknown) (unknown) Patient presents (units (unknown) date) for a new OB visit unknown) at 9 weeks with twins. She has had (unknown) (no (unknown) (unknown) Patient presents (units (unknown) date) for a routine OB unknown) visit at 18 weeks gestation with (unknown) (no (unknown) (unknown) Patient presents (units (unknown) date) for a routine unknown) visit at 14 weeks gestation with (unknown) (no (unknown) (unknown) Patient presents (units (unknown) date) for a routine unknown) visit at 22 weeks gestation with (unknown) (no (unknown) (unknown) Patient presents (units (unknown) date) for a routine unknown) visit at 26 weeks gestation. Jonh (unknown) (no (unknown) (unknown) Patient presents (units (unknown) date) for a routine unknown) visit at 30 weeks gestation with (unknown) (no (unknown) (unknown) Patient presents (units (unknown) date) for a routine unknown) visit at 32 weeks gestation with (unknown) (no (unknown) (unknown) Patient presents (units (unknown) date) for a routine unknown) visit at 36 weeks gestation. She (unknown) (no (unknown) (unknown) Patient presents (units (unknown) date) for a routine unknown) visit at 37 weeks gestation with (unknown) (no (unknown) (unknown) Plan: (units (unkno wn) date) unknown) (unknown) (no (unknown) (unknown) Pt presents for a (units (unknown) date) PNV at 34 weeks unknown) gestation. No c/o. Jonh FM x 2. No (unknown) (no (unknown) (unknown) (no value) (units (unk nown) date) unknown) (unknown) (no (unknown) (unknown) (no value) (units (unk nown) date) unknown) (unknown) (no (unknown) (unknown) (+12 lb) 124/68 (units (unknown) date) N unknown) (unknown) (no (unknown) (unknown) (+16 lb) 126/68 (units (unknown) date) N unknown) (unknown) (no (unknown) (unknown) (+28 lb) 126/68 (units (unknown) date) N unknown) (unknown) (no (unknown) (unknown) (+35 lb) 128/60 (units (unknown) date) N unknown) (unknown) (no (unknown) (unknown) (+41 lb) 146/72 (units (unknown) date) unknown) (unknown) (no (unknown) (unknown) (+50 lb) 130/62 (units (unknown) date) N unknown) (unknown) (no (unknown) (unknown) (+51 lb) 122/62 (units (unknown) date) N unknown) (unknown) (no (unknown) (unknown) (+61 lb) 126/76 (units (unknown) date) N unknown) (unknown) (no (unknown) (unknown) (+66 lb) 131/76 (units (unknown) date) unknown) (unknown) (no (unknown) (unknown) (+66 lb) 136/68 (units (unknown) date) N unknown) (unknown) (no (unknown) (unknown) (+66 lb) (units (unkno wn) date) unknown) (unknown) (no (unknown) (unknown) (+8 lb) 120/68 (units (unknown) date) N unknown) (unknown) (no (unknown) (unknown) 09/05/21 (units (unkno wn) date) unknown) (unknown) (no (unknown) (unknown) 09/17/21 (units (unkno wn) date) unknown) (unknown) (no (unknown) (unknown) 09/30/21 (units (unkno wn) date) unknown) (unknown) (no (unknown) (unknown) 10/14/21 (units (unkno wn) date) unknown) (unknown) (no (unknown) (unknown) 10/22/21 (units (unkno wn) date) unknown) (unknown) (no (unknown) (unknown) 10/24/21 (units (unkno wn) date) unknown) (unknown) (no (unknown) (unknown) 12/09/21 (units (unkno wn) date) unknown) (unknown) (no (unknown) (unknown) 12/11/21 0612 (units ( unknown) date) unknown) (unknown) (no (unknown) (unknown) 02/02/18 40.2 (units ( unknown) date) 30 7 lb 4 oz unknown) Female vaginal live - full ter (unknown) (no (unknown) (unknown) 04/11/21 (units (unkno wn) date) unknown) (unknown) (no (unknown) (unknown) 05/13/21 (units (unkno wn) date) unknown) (unknown) (no (unknown) (unknown) 1+ No no (units (unknown) date) A 155 unknown) (unknown) (no (unknown) (unknown) 1+ Yes no (units (unknown) date) A 140 unknown) (unknown) (no (unknown) (unknown) 1+ Yes no (units (unknown) date) A 150 unknown) (unknown) (no (unknown) (unknown) 06/10/21 (units (unkno wn) date) unknown) (unknown) (no (unknown) (unknown) 07/04/19 38 (units (un known) date) 30 6 lb 2 oz unknown) Female vaginal live - full ter (unknown) (no (unknown) (unknown) 07/09/21 (units (unkno wn) date) unknown) (unknown) (no (unknown) (unknown) 08/07/21 (units (unkno wn) date) unknown) (unknown) (no (unknown) (unknown) 128/76 N (units (un known) date) unknown) (unknown) (no (unknown) (unknown) 141/67 (units (unkno wn) date) unknown) (unknown) (no (unknown) (unknown) 141/67 (units (unkno wn) date) unknown) (unknown) (no (unknown) (unknown) 14w 2d 257 lb (units (unknown) date) unknown) (unknown) (no (unknown) (unknown) 153/62 (units (unkno wn) date) unknown) (unknown) (no (unknown) (unknown) 15:50 (units (unkno wn) date) unknown) (unknown) (no (unknown) (unknown) 18w 2d 261 lb (units (unknown) date) unknown) (unknown) (no (unknown) (unknown) 22w 3d 273 lb (units (unknown) date) unknown) (unknown) (no (unknown) (unknown) 26w 4d 280 lb (units (unknown) date) unknown) (unknown) (no (unknown) (unknown) 30w 5d 286 lb (units (unknown) date) unknown) (unknown) (no (unknown) (unknown) 311 lb (units (unkno wn) date) unknown) (unknown) (no (unknown) (unknown) 32w 3d 296 lb (units (unknown) date) unknown) (unknown) (no (unknown) (unknown) 34w 2d 295 lb (units (unknown) date) unknown) (unknown) (no (unknown) (unknown) 36w 2d 306 lb (units (unknown) date) unknown) (unknown) (no (unknown) (unknown) 37w 3d 311 lb (units (unknown) date) unknown) (unknown) (no (unknown) (unknown) 38w 0d 311 lb (units (unknown) date) unknown) (unknown) (no (unknown) (unknown) 9w 5d 253 lb (units (unknown) date) unknown) (unknown) (no (unknown) (unknown) A (units (unkno wn) date) unknown) (unknown) (no (unknown) (unknown) [place] (units ( unknown) date) [id number] unknown) (unknown) (no (unknown) (unknown) Current Estimate (units (unknown) date) 11/09/21 LMP unknown) (Certain) 44w 4d (unknown) (no (unknown) (unknown) Diabetes mellitus (units (unknown) date) unknown) (unknown) (no (unknown) (unknown) Drug addiction in (units (unknown) date) remission unknown) (unknown) (no (unknown) (unknown) Estimated Delivery (units (unknown) date) Date Method unknown) Current (unknown) (no (unknown) (unknown) Family (units (unkno wn) date) estrangement unknown) (unknown) (no (unknown) (unknown) # 2 (units (u nknown) date) unknown) (unknown) (no (unknown) (unknown) [facility]) (unknown) (no (unknown) (unknown) History of ETOH (units (unknown) date) abuse unknown) (unknown) (no (unknown) (unknown) History of (units (unk nown) date) incarceration unknown) (unknown) (no (unknown) (unknown) Hypertension (units (u nknown) date) unknown) (unknown) (no (unknown) (unknown) N Yes no (units (unknown) date) A 131 unknown) (unknown) (no (unknown) (unknown) OB Office Visit (units (unknown) date) unknown) (unknown) (no (unknown) (unknown) Other Estimates (units (unknown) date) 11/14/21 unknown) Ultrasound #1 43w 6d (unknown) (no (unknown) (unknown) Signed (units (unkno wn) date) unknown) (unknown) (no (unknown) (unknown) Skin cancer (units (un known) date) unknown) (unknown) (no (unknown) (unknown) TR No no (units (unknown) date) A 170 unknown) (unknown) (no (unknown) (unknown) TR Yes no (units (unknown) date) A 129 unknown) (unknown) (no (unknown) (unknown) TR Yes no (units (unknown) date) A 134 unknown) (unknown) (no (unknown) (unknown) TR Yes no (units (unknown) date) A 138 unknown) (unknown) (no (unknown) (unknown) TR Yes no (units (unknown) date) A 141 unknown) (unknown) (no (unknown) (unknown) TR Yes no (units (unknown) date) A 151 unknown) (unknown) (no (unknown) (unknown) kag (units (unkno wn) date) unknown) (unknown) (no (unknown) (unknown) (no value) (units (unk nown) date) unknown) (unknown) (no (unknown) (unknown) vaginal delivery (units (unknown) date) x2 of twins unknown) (unknown) (no (unknown) (unknown) (1) (units (unknown) date) examination unknown) following vaginal delivery: (unknown) (no (unknown) (unknown) Genetic (units (unkn own) date) Screening/Teratolog unknown) y Counseling - Includes patient, baby's father, or (unknown) (no (unknown) (unknown) -?-?-?-?-?-?-?-?-? (units (unknown) date) -?-?-?- unknown) (unknown) (no (unknown) (unknown) 0081 (units (unkno wn) date) unknown) (unknown) (no (unknown) (unknown) 12/09/21 (units (unkno wn) date) unknown) (unknown) (no (unknown) (unknown) 12/09/21] (units (unkn own) date) unknown) (unknown) (no (unknown) (unknown) 1. : (units (unk nown) date) with Di/Di unknown) Twins. Boy/Girl (unknown) (no (unknown) (unknown) 10. PICA at 26 (units (unknown) date) weeks. Discussed unknown) PNV and iron (unknown) (no (unknown) (unknown) 11. *Special* (units (unknown) date) unknown) (unknown) (no (unknown) (unknown) 141 beats per (units ( unknown) date) minute. unknown) heart rate B 138 beats per minute. Both or in the (unknown) (no (unknown) (unknown) 2. H/O PIH with (units (unknown) date) both pregnancies unknown) and hemorrhage PP both times also. On (unknown) (no (unknown) (unknown) 2021. No (units (unkno wn) date) contractions. Good unknown) movement x2. No leakage of fluid or vaginal (unknown) (no (unknown) (unknown) 26-year-old (units (unknown) date) 3 para 3004 with a unknown) normal 6 week exam following a (unknown) (no (unknown) (unknown) 3. Thalassemia. (units (unknown) date) unknown) (unknown) (no (unknown) (unknown) 4. Hyperemesis (units (unknown) date) Gravidarum : unknown) Infusions have helped some. Zofran/Reglan (unknown) (no (unknown) (unknown) 49%ile. B AGA (units ( unknown) date) 30w0d 3#10oz unknown) 51%ile. No tension on membrane. Trans/Trans. Plan: (unknown) (no (unknown) (unknown) 5. Pre-diabetic (units (unknown) date) diagnosis February 2021 unknown) (unknown) (no (unknown) (unknown) 6 week - (units (unknown) date) is getting unknown) vasectomy (unknown) (no (unknown) (unknown) 6. 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 (unknown) (no (unknown) (unknown) 8. Obesity : (units ( unknown) date) Prepping for unknown) Gastric Sleeve surgery when she found out she was (unknown) (no (unknown) (unknown) 9. H/O Left Hip : (units (unknown) date) slipped epiphysis unknown) (fractured that hip also) with Hardware (unknown) (no (unknown) (unknown) Abdomen: soft and (units (unknown) date) non-tender; unknown) Negative for uterus palp or hepatosplemegaly (unknown) (no (unknown) (unknown) Abnormal lab (units (u nknown) date) values 1st unknown) trimester: discussed (unknown) (no (unknown) (unknown) Add'l Plan Details (units (unknown) date) unknown) (unknown) (no (unknown) (unknown) Age at menarche: (units (unknown) date) 16 unknown) (unknown) (no (unknown) (unknown) Age/Sex: 25 / F (units (unknown) date) Date of Service: unknown) (unknown) (no (unknown) (unknown) Allergies (units (unkn own) date) unknown) (unknown) (no (unknown) (unknown) Anemia (units (unkno wn) date) unknown) (unknown) (no (unknown) (unknown) Anesthesia (units (unk nown) date) unknown) (unknown) (no (unknown) (unknown) Aneuploidy (units (unk nown) date) Screening Offered: unknown) Accepted (unknown) (no (unknown) (unknown) Anticipated course (units (unknown) date) of care: unknown) discussed (unknown) (no (unknown) (unknown) Assessment and (units (unknown) date) Plan unknown) (unknown) (no (unknown) (unknown) Assessment: (units (un known) date) unknown) (unknown) (no (unknown) (unknown) Attending Dr: (units ( unknown) date) Fanny Brown MD unknown) (unknown) (no (unknown) (unknown) B Transverse (units (unknown) date) absent 2 wks unknown) (unknown) (no (unknown) (unknown) B Transverse (units (unknown) date) absent 4 wks unknown) (unknown) (no (unknown) (unknown) B Vertex 1+ (units (unknown) date) 2 wks unknown) (unknown) (no (unknown) (unknown) B Vertex 1+ (units (unknown) date) 3d unknown) (unknown) (no (unknown) (unknown) B Vertex 1+ (units (unknown) date) cl/75/soft 1 unknown) (unknown) (no (unknown) (unknown) B 138 49 (units (unknown) date) A Vertex unknown) (unknown) (no (unknown) (unknown) B 142 27 (units (unknown) date) A Transverse unknown) (unknown) (no (unknown) (unknown) B 144 47 (units (unknown) date) A Vertex unknown) (unknown) (no (unknown) (unknown) B 148 37 (units (unknown) date) A Transverse unknown) (unknown) (no (unknown) (unknown) B 148 43 (units (unknown) date) A Vertex unknown) (unknown) (no (unknown) (unknown) B 151 24 (units (unknown) date) A Transverse unknown) (unknown) (no (unknown) (unknown) B 153 17 (units (unknown) date) A Transverse unknown) (unknown) (no (unknown) (unknown) B 178 12 (units (unknown) date) A N/A unknown) (unknown) (no (unknown) (unknown) B 29 31 A (units (unknown) date) Transverse unknown) (unknown) (no (unknown) (unknown) B 51 39 A (units (unknown) date) Vertex unknown) (unknown) (no (unknown) (unknown) B A (units (unkno wn) date) unknown) (unknown) (no (unknown) (unknown) B N/A absent (units (unknown) date) long/closed unknown) AGA 9w0d 4 (unknown) (no (unknown) (unknown) B (units (unkno wn) date) unknown) (unknown) (no (unknown) (unknown) BMI 46.8 (units (un known) date) unknown) (unknown) (no (unknown) (unknown) BP 130/78 (units (u nknown) date) unknown) (unknown) (no (unknown) (unknown) Bimanual: week (units (unknown) date) size: (6) and unknown) mobile; Negative for tender, adnexal mass or (unknown) (no (unknown) (unknown) Bipolar affective (units (unknown) date) disorder unknown) (unknown) (no (unknown) (unknown) (units (unkno wn) date) Plan/Preferences unknown) (unknown) (no (unknown) (unknown) Planning (units (unknown) date) unknown) (unknown) (no (unknown) (unknown) control (units ( unknown) date) method:: other unknown) ( vasectomy) (unknown) (no (unknown) (unknown) Bladder: Reports (units (unknown) date) emptying; Denies unknown) pain with urination, urge incontinence or (unknown) (no (unknown) (unknown) Bleeding: No (units (u nknown) date) unknown) (unknown) (no (unknown) (unknown) Blood Pressure (units (unknown) date) Location Lt unknown) brachial (unknown) (no (unknown) (unknown) Blood (units (unkno wn) date) transfusions?: yes unknown) (unknown) (no (unknown) (unknown) Blues/Depression/A (units (unknown) date) nxiety: No unknown) (unknown) (no (unknown) (unknown) Bowel: Reports (units (unknown) date) daily and stool unknown) soft; Denies constipation or stool hard (unknown) (no (unknown) (unknown) Breastfeed Preg (units (unknown) date) Comp Name unknown) (unknown) (no (unknown) (unknown) Breasts: (units (unkno wn) date) symmetric; Negative unknown) for masses, KALEB, nipple discharge, erythema or (unknown) (no (unknown) (unknown) Brother No (units (unknown) date) problems noted. unknown) (unknown) (no (unknown) (unknown) Caffeine use, (units ( unknown) date) Eating disorder unknown) history, Exercise and activity, (unknown) (no (unknown) (unknown) Cervix: parous and (units (unknown) date) well healed; unknown) Negative for polyps or lesions (unknown) (no (unknown) (unknown) Childbirth (units (unk nown) date) Classes: discussed unknown) (unknown) (no (unknown) (unknown) Condoms until 3 (units (unknown) date) months after unknown) 's vasectomy and sperm count (unknown) (no (unknown) (unknown) Current (units (unknown) date) History unknown) (unknown) (no (unknown) (unknown) : 1995 (units (unknown) date) Acct:[id number] unknown) (unknown) (no (unknown) (unknown) Date (units (unkno wn) date) unknown) (unknown) (no (unknown) (unknown) Date of positive (units (unknown) date) home unknown) test: 03/03/21 (unknown) (no (unknown) (unknown) Del. Date GA/Weeks (units (unknown) date) Labor Lgth Wt unknown) Sex Route Outcome Anesthesia Place (unknown) (no (unknown) (unknown) Delivery Date: (units (unknown) date) 10/25/21 unknown) (unknown) (no (unknown) (unknown) Delivery Date: (units (unknown) date) 02/02/18 Last unknown) Updated by: Karlene Figueroa R.N. (unknown) (no (unknown) (unknown) Delivery Date: (units (unknown) date) 07/04/19 Last unknown) Updated by: Karlene Figueroa R.N. (unknown) (no (unknown) (unknown) Delv (units (unkno wn) date) unknown) (unknown) (no (unknown) (unknown) Denies Congenital (units (unknown) date) Heart Defect, unknown) Denies Down Syndrome, Denies Muscular Dystrophy, (unknown) (no (unknown) (unknown) Denies Hemophilia (units (unknown) date) or other blood unknown) disorders, Denies Cystic Fibrosis, Denies (unknown) (no (unknown) (unknown) Denies Neural Tube (units (unknown) date) Defect unknown) (Meningomyelocele, Spina Bifida, or Anencephaly), (unknown) (no (unknown) (unknown) Denies Patient or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 reviewed, coverage 24 hours a day and participation (unknown) (no (unknown) (unknown) second hand (units (un known) date) exposure: No unknown) (unknown) (no (unknown) (unknown) software. Although (units (unknown) date) every effort is unknown) made to edit content, foster care case manager errors (unknown) (no (unknown) (unknown) some nausea and (units (unknown) date) vomiting. She has unknown) a history of -induced hypertension (unknown) (no (unknown) (unknown) special pinky (units ( unknown) date) needs: No unknown) (unknown) (no (unknown) (unknown) stopped this. She (units (unknown) date) would like to go on unknown) something else. Ultrasound: No tension (unknown) (no (unknown) (unknown) stress (units (unkno wn) date) incontinence unknown) (unknown) (no (unknown) (unknown) substance use (units ( unknown) date) type: does not use unknown) (unknown) (no (unknown) (unknown) tenderness, (units (un known) date) urinary frequency, unknown) irritability, bloating and other (unknown) (no (unknown) (unknown) the membrane. (units ( unknown) date) Good amniotic fluid unknown) volume in both sacs. Plan: Follow-up in 4 (unknown) (no (unknown) (unknown) the membrane. No (units (unknown) date) tension. Placenta unknown) is grade 0. Plan: Follow-up in 1 week. (unknown) (no (unknown) (unknown) twins. Good (units (unknown) date) movement. No LOF unknown) or VB. No ctx's. U/S: A AGA 30w3d. 3#10oz (unknown) (no (unknown) (unknown) twins. She has (units (unknown) date) had some unknown) intermittent contractions nothing that lasts after she (unknown) (no (unknown) (unknown) ultrasound (units (unk nown) date) ordered. Warning unknown) signs reviewed. Follow-up in 4 weeks. (unknown) (no (unknown) (unknown) ultrasound: The (units (unknown) date) babies are both in unknown) the transverse lie. There is good amount of (unknown) (no (unknown) (unknown) ultrasound: Babies (units (unknown) date) are vertex vertex, unknown) no tension on the membrane. Grade 0 (unknown) (no (unknown) (unknown) vertex (units (unkno wn) date) presentation. unknown) Placenta is grade 1. Plan: COVID test today. Consent (unknown) (no (unknown) (unknown) violence, Travel, (units (unknown) date) Seatbelt use and unknown) Influenza vaccine (unknown) (no (unknown) (unknown) visit, ultrasound, (units (unknown) date) and quad screen. unknown) kag (unknown) (no (unknown) (unknown) weeks. Warning (units (unknown) date) signs reviewed. 1 unknown) hour glucose tolerance test ordered. Kag (unknown) (no (unknown) (unknown) wk (units (unkno wn) date) unknown) (unknown) (no (unknown) (unknown) wks (units (unkno wn) date) unknown) (unknown) (no (unknown) (unknown) work/environmental (units (unknown) date) /hazards, Sexual unknown) activity, X-ray exposure, Medication use, Result panel 4 (unknown) (no (unknown) (unknown) (no value) (units (unk nown) date) unknown) (unknown) (no (unknown) (unknown) (no value) (units (unk nown) date) unknown) (unknown) (no (unknown) (unknown) (no value) (units (unk nown) date) unknown) (unknown) (no (unknown) (unknown) [place], [place] (units ( unknown) date) [id number] unknown) (unknown) (no (unknown) (unknown) Care Management (units (unknown) date) Visit unknown) (unknown) (no (unknown) (unknown) Date EPDS GAD7 (units (unknown) date) unknown) (unknown) (no (unknown) (unknown) Date PHQ9 GAD7 (units (unknown) date) unknown) (unknown) (no (unknown) (unknown) Draft (units (unkno wn) date) unknown) (unknown) (no (unknown) (unknown) [facility]) (unknown) (no (unknown) (unknown) (no value) (units (unk nown) date) unknown) (unknown) (no (unknown) (unknown) Also has a (units (unk nown) date) previous diagnosis unknown) of bipolar disorder. (unknown) (no (unknown) (unknown) Jr.) (units (unkno wn) date) unknown) (unknown) (no (unknown) (unknown) after delivery (units (unknown) date) once she stopped unknown) breast feeding, but only toook for about 1-2 (unknown) (no (unknown) (unknown) children. (units (unkn own) date) unknown) (unknown) (no (unknown) (unknown) depression that (units (unknown) date) she felt following unknown) the of her other 2 children. (unknown) (no (unknown) (unknown) depression was 10 (units (unknown) date) times worse than unknown) it was before. [place] very fatigued, with (unknown) (no (unknown) (unknown) formula because (units (unknown) date) of jaundice. unknown) (unknown) (no (unknown) (unknown) months. States (units (unknown) date) that this is the unknown) only medication that has helped her. (unknown) (no (unknown) (unknown) more easily (units (un known) date) irritated unknown) (unknown) (no (unknown) (unknown) racing heart and (units (unknown) date) a panicky feeling unknown) all day. Lashing out at significant other, (unknown) (no (unknown) (unknown) since home, (units (un known) date) nursing is going unknown) well. Patient had hoped to nurse both at the same (unknown) (no (unknown) (unknown) time, but proving (units (unknown) date) to be challenging. unknown) Also, pumping and supplementing with (unknown) (no (unknown) (unknown) was and (units (unknown) date) switched to unknown) sertraline. Put back on tegretol about 5-6 mo (unknown) (no (unknown) (unknown) what it was. (units (u nknown) date) unknown) (unknown) (no (unknown) (unknown) yesterday, and (units (unknown) date) was very helpful unknown) while there. Patient and spouse now alone with (unknown) (no (unknown) (unknown) * 25 year old (units ( unknown) date) female referred to unknown) [facility] by Dr. Brown for anxiety and depression. (unknown) (no (unknown) (unknown) * 2 daughters (units ( unknown) date) ages 2 + 3. unknown) (unknown) (no (unknown) (unknown) * Also encouraged (units (unknown) date) her to explore unknown) breathing apps for her phone. (unknown) (no (unknown) (unknown) * Delivery went (units (unknown) date) well. Initial unknown) nursing in the hospital was a bit challenging, but (unknown) (no (unknown) (unknown) * Discussed (units (un known) date) grounding unknown) techniques, and provided patient with worksheet. (unknown) (no (unknown) (unknown) * Hasn't used (units ( unknown) date) hydroxyzine since unknown) babies were born. (unknown) (no (unknown) (unknown) * Mother was able (units (unknown) date) to be present for unknown) the , as patient had hoped. She left (unknown) (no (unknown) (unknown) * June 2021 - (units (unknown) date) citalopram 10 mg unknown) daily. Reports that her anxiety and (unknown) (no (unknown) (unknown) * Patient has (units ( unknown) date) been participating unknown) in [facility] since July 2022. (unknown) (no (unknown) (unknown) * Patient says (units (unknown) date) spouse is very unknown) positive and helpful. (unknown) (no (unknown) (unknown) * Patient's twin (units (unknown) date) babies were born unknown) on 10/25/21, a boy and a girl (Farwell + Devin (unknown) (no (unknown) (unknown) * Reports that (units (unknown) date) she is crying at unknown) night, but not sure why. Not feeling the same (unknown) (no (unknown) (unknown) * Sertraline -? (units (unknown) date) made her feel unknown) worse, similar to how she felt with citalopram. (unknown) (no (unknown) (unknown) * Started (units (unkn own) date) escitalopram 3 unknown) days ago (unknown) (no (unknown) (unknown) * Tegretol - 2016 (units (unknown) date) - 2017 after unknown) diagnosis of bipolar disorder. Stopped when she (unknown) (no (unknown) (unknown) * Took something (units (unknown) date) for anxiety for a unknown) brief time last year, it worked, but unsure (unknown) (no (unknown) (unknown) * Will start (units (u nknown) date) escitalopram after unknown) babies born,. (unknown) (no (unknown) (unknown) * With spouse for (units (unknown) date) 5 years and unknown) for 3. (unknown) (no (unknown) (unknown) * hydroxyzine - (units (unknown) date) 1-2 times per day unknown) - feels it helps because it 'knocks me out.' (unknown) (no (unknown) (unknown) - Escitalopram: (units (unknown) date) if trying as unknown) prescribed, monitor closely for any worsening mood (unknown) (no (unknown) (unknown) - Recommend close (units (unknown) date) monitoring during unknown) period given h/o severe (unknown) (no (unknown) (unknown) (units (unknown) date) unknown) (unknown) (no (unknown) (unknown) (units (unknown) date) unknown) (unknown) (no (unknown) (unknown) (units (unknown) date) unknown) ------- (unknown) (no (unknown) (unknown) 0081 (units (unkno wn) date) unknown) (unknown) (no (unknown) (unknown) 01/16/22 (units (unkno wn) date) unknown) (unknown) (no (unknown) (unknown) 08/07/21 (units (unkno wn) date) unknown) (unknown) (no (unknown) (unknown) 08/07/21 14 17 (units (unknown) date) unknown) (unknown) (no (unknown) (unknown) 10/09/21 - (units (unknown) date) Zaid's unknown) RECOMMENDATIONS for Dr. Brown +. Dr. Gilliam: (unknown) (no (unknown) (unknown) 09/19/21 - (units (u nknown) date) Tawana - unknown) (unknown) (no (unknown) (unknown) 10/15/21 - (units (unkno wn) date) unknown) (unknown) (no (unknown) (unknown) 10/15/21 11 17 (units (u nknown) date) unknown) (unknown) (no (unknown) (unknown) 10/31/21 - (units (unkn own) date) unknown) (unknown) (no (unknown) (unknown) 10/31/21 13 12 (units ( unknown) date) unknown) (unknown) (no (unknown) (unknown) Age/Sex: 26 / F (units (unknown) date) Date of Service: unknown) (unknown) (no (unknown) (unknown) Attending Dr: (units ( unknown) date) Sandy Juan RECORD CHANGER ASSEMBLER unknown) (unknown) (no (unknown) (unknown) [facility] Commercial Door Installer (units (unknown) date) Follow-Up unknown) (unknown) (no (unknown) (unknown) : 1995 (units (unknown) date) Acct:[id number] unknown) (unknown) (no (unknown) (unknown) Dept at (units (unkno wn) date) . unknown) (unknown) (no (unknown) (unknown) Documented By: (units (unknown) date) Sandy Juan RECORD CHANGER ASSEMBLER unknown) 01/16/22 0811 (unknown) (no (unknown) (unknown) Family:: (units (unkno wn) date) unknown) (unknown) (no (unknown) (unknown) Loc: [facility] (units (unkno wn) date) unknown) (unknown) (no (unknown) (unknown) Medication Update (units (unknown) date) unknown) (unknown) (no (unknown) (unknown) Other (units (unkno wn) date) unknown) (unknown) (no (unknown) (unknown) Other/Additional (units (unknown) date) Details:: unknown) (unknown) (no (unknown) (unknown) Past: (units (unkno wn) date) unknown) (unknown) (no (unknown) (unknown) Patient: (units (unkno wn) date) Zev Bryant R unknown) MR#: [id number] (unknown) (no (unknown) (unknown) Presenting (units (unk nown) date) Problem Update unknown) (unknown) (no (unknown) (unknown) Previous session: (units (unknown) date) unknown) (unknown) (no (unknown) (unknown) Signed By: (units (unk nown) date) unknown) (unknown) (no (unknown) (unknown) This note may (units ( unknown) date) have been all or unknown) partially generated using voice recognition (unknown) (no (unknown) (unknown) appropriateness (units (unknown) date) of that program unknown) vs. other options. (unknown) (no (unknown) (unknown) escitalopram (units (u nknown) date) oxalate 10 mg unknown) tablet (Lexapro) 10 mg PO DAILY (unknown) (no (unknown) (unknown) have occurred. (units (unknown) date) If there are any unknown) questions, please contact the Medical Records (unknown) (no (unknown) (unknown) including SI (units (u nknown) date) unknown) (unknown) (no (unknown) (unknown) may occur. (units (unk nown) date) Occasional unknown) wrong-word or 'sound-alike' substitutions may have (unknown) (no (unknown) (unknown) occurred due to (units (unknown) date) the inherent unknown) limitations of voice recognition software. Please (unknown) (no (unknown) (unknown) (units (unk nown) date) depression. , unknown) Zaid to discuss with [facility] team to assess (unknown) (no (unknown) (unknown) read the note (units ( unknown) date) carefully and unknown) recognize, using context, where these substitutions (unknown) (no (unknown) (unknown) software. (units (unkn own) date) Although every unknown) effort is made to edit content, foster care case manager errors Result panel 5 (unknown) (no (unknown) (unknown) (no value) (units (unk nown) date) unknown) (unknown) (no (unknown) (unknown) Status: Acute (units ( unknown) date) unknown) (unknown) (no (unknown) (unknown) Status: Suspected (units (unknown) date) unknown) (unknown) (no (unknown) (unknown) (no value) (units (unk nown) date) unknown) (unknown) (no (unknown) (unknown) (no value) (units (unk nown) date) unknown) (unknown) (no (unknown) (unknown) [place], [place] (units ( unknown) date) [id number] unknown) (unknown) (no (unknown) (unknown) Care Management (units (unknown) date) Visit unknown) (unknown) (no (unknown) (unknown) Date EPDS GAD7 (units (unknown) date) unknown) (unknown) (no (unknown) (unknown) Date PHQ9 GAD7 (units (unknown) date) unknown) (unknown) (no (unknown) (unknown) Draft (units (unkno wn) date) unknown) (unknown) (no (unknown) (unknown) [facility] unknown) (unknown) (no (unknown) (unknown) (no value) (units (unk nown) date) unknown) (unknown) (no (unknown) (unknown) Also has a (units (unk nown) date) previous diagnosis unknown) of bipolar disorder. (unknown) (no (unknown) (unknown) Jr.) (units (unkno wn) date) unknown) (unknown) (no (unknown) (unknown) after delivery (units (unknown) date) once she stopped unknown) breast feeding, but only toook for about 1-2 (unknown) (no (unknown) (unknown) children. (units (unkn own) date) unknown) (unknown) (no (unknown) (unknown) depression that (units (unknown) date) she felt following unknown) the of her other 2 children. (unknown) (no (unknown) (unknown) depression was 10 (units (unknown) date) times worse than unknown) it was before. [place] very fatigued, with (unknown) (no (unknown) (unknown) formula because (units (unknown) date) of jaundice. unknown) (unknown) (no (unknown) (unknown) months. States (units (unknown) date) that this is the unknown) only medication that has helped her. (unknown) (no (unknown) (unknown) more easily (units (un known) date) irritated unknown) (unknown) (no (unknown) (unknown) racing heart and (units (unknown) date) a panicky feeling unknown) all day. Lashing out at significant other, (unknown) (no (unknown) (unknown) since home, (units (un known) date) nursing is going unknown) well. Patient had hoped to nurse both at the same (unknown) (no (unknown) (unknown) time, but proving (units (unknown) date) to be challenging. unknown) Also, pumping and supplementing with (unknown) (no (unknown) (unknown) was and (units (unknown) date) switched to unknown) sertraline. Put back on tegretol about 5-6 mo (unknown) (no (unknown) (unknown) what it was. (units (u nknown) date) unknown) (unknown) (no (unknown) (unknown) yesterday, and (units (unknown) date) was very helpful unknown) while there. Patient and spouse now alone with (unknown) (no (unknown) (unknown) * 25 year old (units ( unknown) date) female referred to unknown) [facility] by Dr. Brown for anxiety and depression. (unknown) (no (unknown) (unknown) (1) Anxiety and (units (unknown) date) depression: unknown) (unknown) (no (unknown) (unknown) (2) Bipolar 2 (units ( unknown) date) disorder: unknown) (unknown) (no (unknown) (unknown) * 2 daughters (units ( unknown) date) ages 2 + 3. unknown) (unknown) (no (unknown) (unknown) * Also encouraged (units (unknown) date) her to explore unknown) breathing apps for her phone. (unknown) (no (unknown) (unknown) * Delivery went (units (unknown) date) well. Initial unknown) nursing in the hospital was a bit challenging, but (unknown) (no (unknown) (unknown) * Discussed (units (un known) date) grounding unknown) techniques, and provided patient with worksheet. (unknown) (no (unknown) (unknown) * Hasn't used (units ( unknown) date) hydroxyzine since unknown) babies were born. (unknown) (no (unknown) (unknown) * Mother was able (units (unknown) date) to be present for unknown) the , as patient had hoped. She left (unknown) (no (unknown) (unknown) * June 2021 - (units (unknown) date) citalopram 10 mg unknown) daily. Reports that her anxiety and (unknown) (no (unknown) (unknown) * Patient has (units ( unknown) date) been participating unknown) in [facility] since July 2022. (unknown) (no (unknown) (unknown) * Patient says (units (unknown) date) spouse is very unknown) positive and helpful. (unknown) (no (unknown) (unknown) * Patient's twin (units (unknown) date) babies were born unknown) on 10/25/21, a boy and a girl (Farwell + Devin (unknown) (no (unknown) (unknown) * Reports that (units (unknown) date) she is crying at unknown) night, but not sure why. Not feeling the same (unknown) (no (unknown) (unknown) * Sertraline -? (units (unknown) date) made her feel unknown) worse, similar to how she felt with citalopram. (unknown) (no (unknown) (unknown) * Started (units (unkn own) date) escitalopram 3 unknown) days ago (unknown) (no (unknown) (unknown) * Tegretol - 2016 (units (unknown) date) - 2017 after unknown) diagnosis of bipolar disorder. Stopped when she (unknown) (no (unknown) (unknown) * Took something (units (unknown) date) for anxiety for a unknown) brief time last year, it worked, but unsure (unknown) (no (unknown) (unknown) * Will start (units (u nknown) date) escitalopram after unknown) babies born,. (unknown) (no (unknown) (unknown) * With spouse for (units (unknown) date) 5 years and unknown) for 3. (unknown) (no (unknown) (unknown) * hydroxyzine - (units (unknown) date) 1-2 times per day unknown) - feels it helps because it 'knocks me out.' (unknown) (no (unknown) (unknown) - Escitalopram: (units (unknown) date) if trying as unknown) prescribed, monitor closely for any worsening mood (unknown) (no (unknown) (unknown) - Recommend close (units (unknown) date) monitoring during unknown) period given h/o severe (unknown) (no (unknown) (unknown) (units (unknown) date) unknown) (unknown) (no (unknown) (unknown) (units (unknown) date) unknown) (unknown) (no (unknown) (unknown) (units (unknown) date) unknown) ------- (unknown) (no (unknown) (unknown) 0081 (units (unkno wn) date) unknown) (unknown) (no (unknown) (unknown) 01/16/22 (units (unkno wn) date) unknown) (unknown) (no (unknown) (unknown) 08/07/21 (units (unkno wn) date) unknown) (unknown) (no (unknown) (unknown) 08/07/21 - (units (unk nown) date) Provided patient unknown) with Support Warm Line and Motherhood (unknown) (no (unknown) (unknown) 08/07/21 14 17 (units (unknown) date) unknown) (unknown) (no (unknown) (unknown) 10/09/21 - (units (unknown) date) Zaid's unknown) RECOMMENDATIONS for Dr. Brown +. Dr. Gilliam: (unknown) (no (unknown) (unknown) 09/19/21 - (units (u nknown) date) Tawana - unknown) (unknown) (no (unknown) (unknown) 25 year old female (units (unknown) date) participating in unknown) [facility] for symptoms of anxiety and depression. (unknown) (no (unknown) (unknown) 10/15/21 - (units (unkno wn) date) unknown) (unknown) (no (unknown) (unknown) 10/15/21 11 17 (units (u nknown) date) unknown) (unknown) (no (unknown) (unknown) 10/31/21 - (units (unkn own) date) unknown) (unknown) (no (unknown) (unknown) 10/31/21 13 12 (units ( unknown) date) unknown) (unknown) (no (unknown) (unknown) 12/27/21 Kevin 8 X (units (unknown) date) unknown) (unknown) (no (unknown) (unknown) 55 minutes (units (unk nown) date) unknown) (unknown) (no (unknown) (unknown) Age/Sex: 26 / F (units (unknown) date) Date of Service: unknown) (unknown) (no (unknown) (unknown) All participants (units (unknown) date) + their role: unknown) (Providers,Parent, Spouse,etc): (unknown) (no (unknown) (unknown) Attending Dr: (units ( unknown) date) Sandy GROSS unknown) (unknown) (no (unknown) (unknown) [facility] Assessment + (units (unknown) date) Plan unknown) (unknown) (no (unknown) (unknown) [facility] Commercial Door Installer (units (unknown) date) Follow-Up unknown) (unknown) (no (unknown) (unknown) [facility] Goal #1: (units ( unknown) date) Medication unknown) management (unknown) (no (unknown) (unknown) [facility] Goal #2: (units ( unknown) date) Support around new unknown) babies. (unknown) (no (unknown) (unknown) [facility] Goal (units (unkn own) date) Progress#1: 5 (See unknown) medication section.) (unknown) (no (unknown) (unknown) [facility] Goal (units (unkn own) date) Progress#2: 4 unknown) (unknown) (no (unknown) (unknown) Case Formulation (units (unknown) date) unknown) (unknown) (no (unknown) (unknown) Cognitive (units (unkn own) date) Behavioral unknown) Therapy, Motivational Interviewing and Mindfulness (unknown) (no (unknown) (unknown) : 1995 (units (unknown) date) Acct:[id number] unknown) (unknown) (no (unknown) (unknown) Dept at (units (unkno wn) date) . unknown) (unknown) (no (unknown) (unknown) Documented By: (units (unknown) date) Sandy Juan unknown) 01/16/22 0811 (unknown) (no (unknown) (unknown) Family:: (units (unkno wn) date) unknown) (unknown) (no (unknown) (unknown) Goals + Progress (units (unknown) date) unknown) (unknown) (no (unknown) (unknown) Interventions (units ( unknown) date) unknown) (unknown) (no (unknown) (unknown) Loc: [facility] (units (unkno wn) date) unknown) (unknown) (no (unknown) (unknown) Location of (units (un known) date) patient:: Home unknown) (unknown) (no (unknown) (unknown) Location of (units (un known) date) provider:: [facility] unknown) (unknown) (no (unknown) (unknown) Medication Update (units (unknown) date) unknown) (unknown) (no (unknown) (unknown) Other (units (unkno wn) date) unknown) (unknown) (no (unknown) (unknown) Other/Additional (units (unknown) date) Details:: unknown) (unknown) (no (unknown) (unknown) Past: (units (unkno wn) date) unknown) (unknown) (no (unknown) (unknown) Patient consented (units (unknown) date) to receive unknown) services via telehealth?: Yes (unknown) (no (unknown) (unknown) Patient was (units (un known) date) diagnosed in 2016 unknown) with bipolar disorder. Patient is with (unknown) (no (unknown) (unknown) Patient: (units (unkno wn) date) Zev Bryant R unknown) MR#: [id number] (unknown) (no (unknown) (unknown) Presenting (units (unk nown) date) Problem Update unknown) (unknown) (no (unknown) (unknown) Previous session: (units (unknown) date) unknown) (unknown) (no (unknown) (unknown) Protective (units (unk nown) date) Factors: Spouse of unknown) 4 years, 2 daughters (unknown) (no (unknown) (unknown) Real-time,sychron (units (unknown) date) ous services were unknown) performed via:: VSee (unknown) (no (unknown) (unknown) Signed By: (units (unk nown) date) unknown) (unknown) (no (unknown) (unknown) Sandy Juan, (units (unknown) date) RECORD CHANGER ASSEMBLER, HOUSEKEEPER AND LAUNDRY ASSISTANT unknown) (unknown) (no (unknown) (unknown) TeleHealth (units (unk nown) date) unknown) (unknown) (no (unknown) (unknown) This note may (units ( unknown) date) have been all or unknown) partially generated using voice recognition (unknown) (no (unknown) (unknown) Time Spent (units (unk nown) date) unknown) (unknown) (no (unknown) (unknown) Time Spent: (units (un known) date) unknown) (unknown) (no (unknown) (unknown) Understood (units (unk nown) date) information. unknown) (unknown) (no (unknown) (unknown) Were services (units ( unknown) date) performed via unknown) telephone only?: No (unknown) (no (unknown) (unknown) appropriateness (units (unknown) date) of that program unknown) vs. other options. (unknown) (no (unknown) (unknown) escitalopram (units (u nknown) date) oxalate 10 mg unknown) tablet (Lexapro) 10 mg PO DAILY (unknown) (no (unknown) (unknown) have occurred. (units (unknown) date) If there are any unknown) questions, please contact the Medical Records (unknown) (no (unknown) (unknown) hoping to get (units ( unknown) date) assistance with unknown) medication for her anxiety. (unknown) (no (unknown) (unknown) including SI (units (u nknown) date) unknown) (unknown) (no (unknown) (unknown) may occur. (units (unk nown) date) Occasional unknown) wrong-word or 'sound-alike' substitutions may have (unknown) (no (unknown) (unknown) occurred due to (units (unknown) date) the inherent unknown) limitations of voice recognition software. Please (unknown) (no (unknown) (unknown) (units (unk nown) date) depression. , unknown) Zaid to discuss with [facility] team to assess (unknown) (no (unknown) (unknown) read the note (units ( unknown) date) carefully and unknown) recognize, using context, where these substitutions (unknown) (no (unknown) (unknown) software. (units (unkn own) date) Although every unknown) effort is made to edit content, foster care case manager errors (unknown) (no (unknown) (unknown) twins and due in (units (unknown) date) October 2021. Has a unknown) history of depression. Patient is Result panel 6 (unknown) (no (unknown) (unknown) (no value) (units (unk nown) date) unknown) (unknown) (no (unknown) (unknown) Status: Acute (units ( unknown) date) unknown) (unknown) (no (unknown) (unknown) Status: Suspected (units (unknown) date) unknown) (unknown) (no (unknown) (unknown) (no value) (units (unk nown) date) unknown) (unknown) (no (unknown) (unknown) (no value) (units (unk nown) date) unknown) (unknown) (no (unknown) (unknown) [place] (units ( unknown) date) [id number] unknown) (unknown) (no (unknown) (unknown) Care Management (units (unknown) date) Visit unknown) (unknown) (no (unknown) (unknown) Date EPDS GAD7 (units (unknown) date) unknown) (unknown) (no (unknown) (unknown) Date PHQ9 GAD7 (units (unknown) date) unknown) (unknown) (no (unknown) (unknown) Draft (units (unkno wn) date) unknown) (unknown) (no (unknown) (unknown) [facility]) (unknown) (no (unknown) (unknown) (no value) (units (unk nown) date) unknown) (unknown) (no (unknown) (unknown) Also has a (units (unk nown) date) previous diagnosis unknown) of bipolar disorder. (unknown) (no (unknown) (unknown) Jr.) (units (unkno wn) date) unknown) (unknown) (no (unknown) (unknown) after delivery (units (unknown) date) once she stopped unknown) breast feeding, but only toook for about 1-2 (unknown) (no (unknown) (unknown) children. (units (unkn own) date) unknown) (unknown) (no (unknown) (unknown) depression that (units (unknown) date) she felt following unknown) the of her other 2 children. (unknown) (no (unknown) (unknown) depression was 10 (units (unknown) date) times worse than unknown) it was before. [place] very fatigued, with (unknown) (no (unknown) (unknown) formula because (units (unknown) date) of jaundice. unknown) (unknown) (no (unknown) (unknown) months. States (units (unknown) date) that this is the unknown) only medication that has helped her. (unknown) (no (unknown) (unknown) more easily (units (un known) date) irritated unknown) (unknown) (no (unknown) (unknown) racing heart and (units (unknown) date) a panicky feeling unknown) all day. Lashing out at significant other, (unknown) (no (unknown) (unknown) since home, (units (un known) date) nursing is going unknown) well. Patient had hoped to nurse both at the same (unknown) (no (unknown) (unknown) time, but proving (units (unknown) date) to be challenging. unknown) Also, pumping and supplementing with (unknown) (no (unknown) (unknown) was and (units (unknown) date) switched to unknown) sertraline. Put back on tegretol about 5-6 mo (unknown) (no (unknown) (unknown) what it was. (units (u nknown) date) unknown) (unknown) (no (unknown) (unknown) yesterday, and (units (unknown) date) was very helpful unknown) while there. Patient and spouse now alone with (unknown) (no (unknown) (unknown) * 25 year old (units ( unknown) date) female referred to unknown) [facility] by Dr. Brown for anxiety and depression. (unknown) (no (unknown) (unknown) (1) Anxiety and (units (unknown) date) depression: unknown) (unknown) (no (unknown) (unknown) (2) Bipolar 2 (units ( unknown) date) disorder: unknown) (unknown) (no (unknown) (unknown) * (units (unkno wn) date) unknown) (unknown) (no (unknown) (unknown) * 2 daughters (units ( unknown) date) ages 2 + 3. unknown) (unknown) (no (unknown) (unknown) * Also encouraged (units (unknown) date) her to explore unknown) breathing apps for her phone. (unknown) (no (unknown) (unknown) * Delivery went (units (unknown) date) well. Initial unknown) nursing in the hospital was a bit challenging, but (unknown) (no (unknown) (unknown) * Discussed (units (un known) date) grounding unknown) techniques, and provided patient with worksheet. (unknown) (no (unknown) (unknown) * Hasn't used (units ( unknown) date) hydroxyzine since unknown) babies were born. (unknown) (no (unknown) (unknown) * Mother was able (units (unknown) date) to be present for unknown) the , as patient had hoped. She left (unknown) (no (unknown) (unknown) * June 2021 - (units (unknown) date) citalopram 10 mg unknown) daily. Reports that her anxiety and (unknown) (no (unknown) (unknown) * Patient has (units ( unknown) date) been participating unknown) in [facility] since July 2022. (unknown) (no (unknown) (unknown) * Patient says (units (unknown) date) spouse is very unknown) positive and helpful. (unknown) (no (unknown) (unknown) * Patient's twin (units (unknown) date) babies were born unknown) on 10/25/21, a boy and a girl (Farwell + Devin (unknown) (no (unknown) (unknown) * Reports that (units (unknown) date) she is crying at unknown) night, but not sure why. Not feeling the same (unknown) (no (unknown) (unknown) * Sertraline -? (units (unknown) date) made her feel unknown) worse, similar to how she felt with citalopram. (unknown) (no (unknown) (unknown) * Started (units (unkn own) date) escitalopram 3 unknown) days ago (unknown) (no (unknown) (unknown) * Tegretol - 2016 (units (unknown) date) - 2017 after unknown) diagnosis of bipolar disorder. Stopped when she (unknown) (no (unknown) (unknown) * Took something (units (unknown) date) for anxiety for a unknown) brief time last year, it worked, but unsure (unknown) (no (unknown) (unknown) * Twins born (units (u nknown) date) October 25, 2021. unknown) (unknown) (no (unknown) (unknown) * Will start (units (u nknown) date) escitalopram after unknown) babies born,. (unknown) (no (unknown) (unknown) * With spouse for (units (unknown) date) 5 years and unknown) for 3. (unknown) (no (unknown) (unknown) * hydroxyzine - (units (unknown) date) 1-2 times per day unknown) - feels it helps because it 'knocks me out.' (unknown) (no (unknown) (unknown) * hydroxyzine - (units (unknown) date) makes very sleepy. unknown) (unknown) (no (unknown) (unknown) - Escitalopram: (units (unknown) date) if trying as unknown) prescribed, monitor closely for any worsening mood (unknown) (no (unknown) (unknown) - Recommend close (units (unknown) date) monitoring during unknown) period given h/o severe (unknown) (no (unknown) (unknown) (units (unknown) date) unknown) (unknown) (no (unknown) (unknown) (units (unknown) date) unknown) (unknown) (no (unknown) (unknown) (units (unknown) date) unknown) (unknown) (no (unknown) (unknown) (units (unknown) date) unknown) ------- (unknown) (no (unknown) (unknown) 008 (units (unkno wn) date) unknown) (unknown) (no (unknown) (unknown) 01/16/22 (units (unkno wn) date) unknown) (unknown) (no (unknown) (unknown) 08/07/21 (units (unkno wn) date) unknown) (unknown) (no (unknown) (unknown) 08/07/21 - (units (unk nown) date) Provided patient unknown) with Support Warm Line and Motherhood (unknown) (no (unknown) (unknown) 08/07/21 14 17 (units (unknown) date) unknown) (unknown) (no (unknown) (unknown) 10/09/21 - (units (unknown) date) Zaid's unknown) RECOMMENDATIONS for Dr. Brown +. Dr. Gillaim: (unknown) (no (unknown) (unknown) 09/19/21 - (units (u nknown) date) Tawana - unknown) (unknown) (no (unknown) (unknown) 25 year old female (units (unknown) date) participating in unknown) [facility] for symptoms of anxiety and depression. (unknown) (no (unknown) (unknown) 10/15/21 - (units (unkno wn) date) unknown) (unknown) (no (unknown) (unknown) 10/15/21 11 17 (units (u nknown) date) unknown) (unknown) (no (unknown) (unknown) 10/31/21 - (units (unkn own) date) unknown) (unknown) (no (unknown) (unknown) 10/31/21 13 12 (units ( unknown) date) unknown) (unknown) (no (unknown) (unknown) 12/27/21 Kevin 8 X (units (unknown) date) unknown) (unknown) (no (unknown) (unknown) 55 minutes (units (unk nown) date) unknown) (unknown) (no (unknown) (unknown) 01/16/22 - (units (unkno wn) date) unknown) (unknown) (no (unknown) (unknown) Age/Sex: 26 / F (units (unknown) date) Date of Service: unknown) (unknown) (no (unknown) (unknown) All participants (units (unknown) date) + their role: unknown) (Providers,Parent, Spouse,etc): (unknown) (no (unknown) (unknown) Attending Dr: (units ( unknown) date) Sandy Juan RECORD CHANGER ASSEMBLER unknown) (unknown) (no (unknown) (unknown) IP Assessment + (units (unknown) date) Plan unknown) (unknown) (no (unknown) (unknown) [facility] Commercial Door Installer (units (unknown) date) Follow-Up unknown) (unknown) (no (unknown) (unknown) IP Goal #1: (units ( unknown) date) Medication unknown) management (unknown) (no (unknown) (unknown) [facility] Goal #2: (units ( unknown) date) Support around new unknown) babies. (unknown) (no (unknown) (unknown) BHIP Goal (units (unkn own) date) Progress#1: 5 (See unknown) medication section.) (unknown) (no (unknown) (unknown) BHIP Goal (units (unkn own) date) Progress#2: 4 unknown) (unknown) (no (unknown) (unknown) Case Formulation (units (unknown) date) unknown) (unknown) (no (unknown) (unknown) Cognitive (units (unkn own) date) Behavioral unknown) Therapy, Motivational Interviewing and Mindfulness (unknown) (no (unknown) (unknown) : 1995 (units (unknown) date) Acct:[id number] unknown) (unknown) (no (unknown) (unknown) Dept at (units (unkno wn) date) . unknown) (unknown) (no (unknown) (unknown) Documented By: (units (unknown) date) Sandy Juan unknown) 01/16/22 0811 (unknown) (no (unknown) (unknown) Family:: (units (unkno wn) date) unknown) (unknown) (no (unknown) (unknown) Goals + Progress (units (unknown) date) unknown) (unknown) (no (unknown) (unknown) Interventions (units ( unknown) date) unknown) (unknown) (no (unknown) (unknown) Loc: [facility] (units (unkno wn) date) unknown) (unknown) (no (unknown) (unknown) Location of (units (un known) date) patient:: Home unknown) (unknown) (no (unknown) (unknown) Location of (units (un known) date) provider:: [facility] unknown) (unknown) (no (unknown) (unknown) Medication Update (units (unknown) date) unknown) (unknown) (no (unknown) (unknown) Other (units (unkno wn) date) unknown) (unknown) (no (unknown) (unknown) Other/Additional (units (unknown) date) Details:: unknown) (unknown) (no (unknown) (unknown) Past: (units (unkno wn) date) unknown) (unknown) (no (unknown) (unknown) Patient consented (units (unknown) date) to receive unknown) services via telehealth?: Yes (unknown) (no (unknown) (unknown) Patient was (units (un known) date) diagnosed in 2016 unknown) with bipolar disorder. Patient is with (unknown) (no (unknown) (unknown) Patient: (units (unkno wn) date) Zev Bryant R unknown) MR#: [id number] (unknown) (no (unknown) (unknown) Presenting (units (unk nown) date) Problem Update unknown) (unknown) (no (unknown) (unknown) Previous session: (units (unknown) date) unknown) (unknown) (no (unknown) (unknown) Protective (units (unk nown) date) Factors: Spouse of unknown) 4 years, 2 daughters (unknown) (no (unknown) (unknown) Real-time,sychron (units (unknown) date) ous services were unknown) performed via:: VSee (unknown) (no (unknown) (unknown) Signed By: (units (unk nown) date) unknown) (unknown) (no (unknown) (unknown) Sandy Juan, (units (unknown) date) RECORD CHANGER ASSEMBLER, HOUSEKEEPER AND LAUNDRY ASSISTANT unknown) (unknown) (no (unknown) (unknown) TeleHealth (units (unk nown) date) unknown) (unknown) (no (unknown) (unknown) This note may (units ( unknown) date) have been all or unknown) partially generated using voice recognition (unknown) (no (unknown) (unknown) Time Spent (units (unk nown) date) unknown) (unknown) (no (unknown) (unknown) Time Spent: (units (un known) date) unknown) (unknown) (no (unknown) (unknown) Understood (units (unk nown) date) information. unknown) (unknown) (no (unknown) (unknown) Were services (units ( unknown) date) performed via unknown) telephone only?: No (unknown) (no (unknown) (unknown) appropriateness (units (unknown) date) of that program unknown) vs. other options. (unknown) (no (unknown) (unknown) escitalopram (units (u nknown) date) oxalate 10 mg unknown) tablet (Lexapro) 10 mg PO DAILY (unknown) (no (unknown) (unknown) have occurred. (units (unknown) date) If there are any unknown) questions, please contact the Medical Records (unknown) (no (unknown) (unknown) hoping to get (units ( unknown) date) assistance with unknown) medication for her anxiety. (unknown) (no (unknown) (unknown) including SI (units (u nknown) date) unknown) (unknown) (no (unknown) (unknown) may occur. (units (unk nown) date) Occasional unknown) wrong-word or 'sound-alike' substitutions may have (unknown) (no (unknown) (unknown) occurred due to (units (unknown) date) the inherent unknown) limitations of voice recognition software. Please (unknown) (no (unknown) (unknown) (units (unk nown) date) depression. , unknown) Mar to discuss with [facility] team to assess (unknown) (no (unknown) (unknown) read the note (units ( unknown) date) carefully and unknown) recognize, using context, where these substitutions (unknown) (no (unknown) (unknown) software. (units (unkn own) date) Although every unknown) effort is made to edit content, foster care case manager errors (unknown) (no (unknown) (unknown) twins and due in (units (unknown) date) October 2021. Has a unknown) history of depression. Patient is Result panel 7 (unknown) (no (unknown) (unknown) (no value) (units (unk nown) date) unknown) (unknown) (no (unknown) (unknown) Status: Acute (units ( unknown) date) unknown) (unknown) (no (unknown) (unknown) Status: Suspected (units (unknown) date) unknown) (unknown) (no (unknown) (unknown) (no value) (units (unk nown) date) unknown) (unknown) (no (unknown) (unknown) (no value) (units (unk nown) date) unknown) (unknown) (no (unknown) (unknown) [place], [place] (units ( unknown) date) [id number] unknown) (unknown) (no (unknown) (unknown) Care Management (units (unknown) date) Visit unknown) (unknown) (no (unknown) (unknown) Date EPDS GAD7 (units (unknown) date) unknown) (unknown) (no (unknown) (unknown) Date PHQ9 GAD7 (units (unknown) date) unknown) (unknown) (no (unknown) (unknown) Draft (units (unkno wn) date) unknown) (unknown) (no (unknown) (unknown) [facility]) (unknown) (no (unknown) (unknown) (no value) (units (unk nown) date) unknown) (unknown) (no (unknown) (unknown) Also has a (units (unk nown) date) previous diagnosis unknown) of bipolar disorder. (unknown) (no (unknown) (unknown) Jr.) (units (unkno wn) date) unknown) (unknown) (no (unknown) (unknown) after delivery (units (unknown) date) once she stopped unknown) breast feeding, but only toook for about 1-2 (unknown) (no (unknown) (unknown) children. (units (unkn own) date) unknown) (unknown) (no (unknown) (unknown) depression that (units (unknown) date) she felt following unknown) the of her other 2 children. (unknown) (no (unknown) (unknown) depression was 10 (units (unknown) date) times worse than unknown) it was before. [place] very fatigued, with (unknown) (no (unknown) (unknown) formula because (units (unknown) date) of jaundice. unknown) (unknown) (no (unknown) (unknown) months. States (units (unknown) date) that this is the unknown) only medication that has helped her. (unknown) (no (unknown) (unknown) more easily (units (un known) date) irritated unknown) (unknown) (no (unknown) (unknown) racing heart and (units (unknown) date) a panicky feeling unknown) all day. Lashing out at significant other, (unknown) (no (unknown) (unknown) since home, (units (un known) date) nursing is going unknown) well. Patient had hoped to nurse both at the same (unknown) (no (unknown) (unknown) time, but proving (units (unknown) date) to be challenging. unknown) Also, pumping and supplementing with (unknown) (no (unknown) (unknown) was and (units (unknown) date) switched to unknown) sertraline. Put back on tegretol about 5-6 mo (unknown) (no (unknown) (unknown) what it was. (units (u nknown) date) unknown) (unknown) (no (unknown) (unknown) yesterday, and (units (unknown) date) was very helpful unknown) while there. Patient and spouse now alone with (unknown) (no (unknown) (unknown) * 25 year old (units ( unknown) date) female referred to unknown) [facility] by Dr. Brown for anxiety and depression. (unknown) (no (unknown) (unknown) (1) Anxiety and (units (unknown) date) depression: unknown) (unknown) (no (unknown) (unknown) (2) Bipolar 2 (units ( unknown) date) disorder: unknown) (unknown) (no (unknown) (unknown) * (units (unkno wn) date) unknown) (unknown) (no (unknown) (unknown) * 2 daughters (units ( unknown) date) ages 3 + 4. unknown) (unknown) (no (unknown) (unknown) * Also encouraged (units (unknown) date) her to explore unknown) breathing apps for her phone. (unknown) (no (unknown) (unknown) * Delivery went (units (unknown) date) well. Initial unknown) nursing in the hospital was a bit challenging, but (unknown) (no (unknown) (unknown) * Discussed (units (un known) date) grounding unknown) techniques, and provided patient with worksheet. (unknown) (no (unknown) (unknown) * Hasn't used (units ( unknown) date) hydroxyzine since unknown) babies were born. (unknown) (no (unknown) (unknown) * Mother was able (units (unknown) date) to be present for unknown) the , as patient had hoped. She left (unknown) (no (unknown) (unknown) * June 2021 - (units (unknown) date) citalopram 10 mg unknown) daily. Reports that her anxiety and (unknown) (no (unknown) (unknown) * Patient has (units ( unknown) date) been participating unknown) in [facility] since July 2022. (unknown) (no (unknown) (unknown) * Patient says (units (unknown) date) spouse is very unknown) positive and helpful. (unknown) (no (unknown) (unknown) * Patient's twin (units (unknown) date) babies were born unknown) on 10/25/21, a boy and a girl (Farwell + Devin (unknown) (no (unknown) (unknown) * Reports that (units (unknown) date) she is crying at unknown) night, but not sure why. Not feeling the same (unknown) (no (unknown) (unknown) * Sertraline -? (units (unknown) date) made her feel unknown) worse, similar to how she felt with citalopram. (unknown) (no (unknown) (unknown) * Started (units (unkn own) date) escitalopram 3 unknown) days ago (unknown) (no (unknown) (unknown) * Tegretol - 2016 (units (unknown) date) - 2017 after unknown) diagnosis of bipolar disorder. Stopped when she (unknown) (no (unknown) (unknown) * Took something (units (unknown) date) for anxiety for a unknown) brief time last year, it worked, but unsure (unknown) (no (unknown) (unknown) * Twins born (units (u nknown) date) October 25, 2021. unknown) (unknown) (no (unknown) (unknown) * Will start (units (u nknown) date) escitalopram after unknown) babies born,. (unknown) (no (unknown) (unknown) * With spouse for (units (unknown) date) 5 years and unknown) for 3. (unknown) (no (unknown) (unknown) * hydroxyzine - (units (unknown) date) 1-2 times per day unknown) - feels it helps because it 'knocks me out.' (unknown) (no (unknown) (unknown) * hydroxyzine - (units (unknown) date) makes very sleepy. unknown) (unknown) (no (unknown) (unknown) - Escitalopram: (units (unknown) date) if trying as unknown) prescribed, monitor closely for any worsening mood (unknown) (no (unknown) (unknown) - Recommend close (units (unknown) date) monitoring during unknown) period given h/o severe (unknown) (no (unknown) (unknown) (units (unknown) date) unknown) (unknown) (no (unknown) (unknown) (units (unknown) date) unknown) (unknown) (no (unknown) (unknown) (units (unknown) date) unknown) (unknown) (no (unknown) (unknown) (units (unknown) date) unknown) ------- (unknown) (no (unknown) (unknown) 008 (units (unkno wn) date) unknown) (unknown) (no (unknown) (unknown) 01/16/22 (units (unkno wn) date) unknown) (unknown) (no (unknown) (unknown) 08/07/21 (units (unkno wn) date) unknown) (unknown) (no (unknown) (unknown) 08/07/21 - (units (unk nown) date) Provided patient unknown) with Support Warm Line and Motherhood (unknown) (no (unknown) (unknown) 08/07/21 14 17 (units (unknown) date) unknown) (unknown) (no (unknown) (unknown) 10/09/21 - (units (unknown) date) Zaid's unknown) RECOMMENDATIONS for Dr. Brown +. Dr. Gilliam: (unknown) (no (unknown) (unknown) 09/19/21 - (units (u nknown) date) Tawana - unknown) (unknown) (no (unknown) (unknown) 25 year old female (units (unknown) date) participating in unknown) [facility] for symptoms of anxiety and depression. (unknown) (no (unknown) (unknown) 10/15/21 - (units (unkno wn) date) unknown) (unknown) (no (unknown) (unknown) 10/15/21 11 17 (units (u nknown) date) unknown) (unknown) (no (unknown) (unknown) 10/31/21 - (units (unkn own) date) unknown) (unknown) (no (unknown) (unknown) 10/31/21 13 12 (units ( unknown) date) unknown) (unknown) (no (unknown) (unknown) 12/27/21 [place] 8 X (units (unknown) date) unknown) (unknown) (no (unknown) (unknown) 55 minutes (units (unk nown) date) unknown) (unknown) (no (unknown) (unknown) 01/16/22 - (units (unkno wn) date) unknown) (unknown) (no (unknown) (unknown) Age/Sex: 26 / F (units (unknown) date) Date of Service: unknown) (unknown) (no (unknown) (unknown) All participants (units (unknown) date) + their role: unknown) (Providers,Parent, Spouse,etc): (unknown) (no (unknown) (unknown) Attending Dr: (units ( unknown) date) Sandy GROSS unknown) (unknown) (no (unknown) (unknown) [facility] Assessment + (units (unknown) date) Plan unknown) (unknown) (no (unknown) (unknown) [facility] Commercial Door Installer (units (unknown) date) Follow-Up unknown) (unknown) (no (unknown) (unknown) [facility] Goal #1: (units ( unknown) date) Medication unknown) management (unknown) (no (unknown) (unknown) BH[facility] Goal #2: (units ( unknown) date) Support around new unknown) babies. (unknown) (no (unknown) (unknown) BHIP Goal (units (unkn own) date) Progress#1: 5 (See unknown) medication section.) (unknown) (no (unknown) (unknown) [facility] Goal (units (unkn own) date) Progress#2: 4 unknown) (unknown) (no (unknown) (unknown) Case Formulation (units (unknown) date) unknown) (unknown) (no (unknown) (unknown) Cognitive (units (unkn own) date) Behavioral unknown) Therapy, Motivational Interviewing and Mindfulness (unknown) (no (unknown) (unknown) : 1995 (units (unknown) date) Acct:[id number] unknown) (unknown) (no (unknown) (unknown) Dept at (units (unkno wn) date) . unknown) (unknown) (no (unknown) (unknown) Documented By: (units (unknown) date) Sheree Juanan RECORD CHANGER ASSEMBLER unknown) 01/16/22 0811 (unknown) (no (unknown) (unknown) Family:: (units (unkno wn) date) unknown) (unknown) (no (unknown) (unknown) Goals + Progress (units (unknown) date) unknown) (unknown) (no (unknown) (unknown) Interventions (units ( unknown) date) unknown) (unknown) (no (unknown) (unknown) Loc: [facility] (units (unkno wn) date) unknown) (unknown) (no (unknown) (unknown) Location of (units (un known) date) patient:: Home unknown) (unknown) (no (unknown) (unknown) Location of (units (un known) date) provider:: [facility] unknown) (unknown) (no (unknown) (unknown) Medication Update (units (unknown) date) unknown) (unknown) (no (unknown) (unknown) Other (units (unkno wn) date) unknown) (unknown) (no (unknown) (unknown) Other/Additional (units (unknown) date) Details:: unknown) (unknown) (no (unknown) (unknown) Past: (units (unkno wn) date) unknown) (unknown) (no (unknown) (unknown) Patient consented (units (unknown) date) to receive unknown) services via telehealth?: Yes (unknown) (no (unknown) (unknown) Patient was (units (un known) date) diagnosed in 2016 unknown) with bipolar disorder. Patient is with (unknown) (no (unknown) (unknown) Patient: (units (unkno wn) date) MannyZev R unknown) MR#: [id number] (unknown) (no (unknown) (unknown) Presenting (units (unk nown) date) Problem Update unknown) (unknown) (no (unknown) (unknown) Previous session: (units (unknown) date) unknown) (unknown) (no (unknown) (unknown) Protective (units (unk nown) date) Factors: Spouse of unknown) 4 years, 2 daughters (unknown) (no (unknown) (unknown) Real-time,sychron (units (unknown) date) ous services were unknown) performed via:: VSee (unknown) (no (unknown) (unknown) Signed By: (units (unk nown) date) unknown) (unknown) (no (unknown) (unknown) Sandy Juan, (units (unknown) date) RECORD CHANGER ASSEMBLER, HOUSEKEEPER AND LAUNDRY ASSISTANT unknown) (unknown) (no (unknown) (unknown) TeleHealth (units (unk nown) date) unknown) (unknown) (no (unknown) (unknown) This note may (units ( unknown) date) have been all or unknown) partially generated using voice recognition (unknown) (no (unknown) (unknown) Time Spent (units (unk nown) date) unknown) (unknown) (no (unknown) (unknown) Time Spent: (units (un known) date) unknown) (unknown) (no (unknown) (unknown) Understood (units (unk nown) date) information. unknown) (unknown) (no (unknown) (unknown) Were services (units ( unknown) date) performed via unknown) telephone only?: No (unknown) (no (unknown) (unknown) appropriateness (units (unknown) date) of that program unknown) vs. other options. (unknown) (no (unknown) (unknown) escitalopram (units (u nknown) date) oxalate 10 mg unknown) tablet (Lexapro) 10 mg PO DAILY (unknown) (no (unknown) (unknown) have occurred. (units (unknown) date) If there are any unknown) questions, please contact the Medical Records (unknown) (no (unknown) (unknown) hoping to get (units ( unknown) date) assistance with unknown) medication for her anxiety. (unknown) (no (unknown) (unknown) including SI (units (u nknown) date) unknown) (unknown) (no (unknown) (unknown) may occur. (units (unk nown) date) Occasional unknown) wrong-word or 'sound-alike' substitutions may have (unknown) (no (unknown) (unknown) occurred due to (units (unknown) date) the inherent unknown) limitations of voice recognition software. Please (unknown) (no (unknown) (unknown) (units (unk nown) date) depression. , unknown) Zaid to discuss with [facility] team to assess (unknown) (no (unknown) (unknown) read the note (units ( unknown) date) carefully and unknown) recognize, using context, where these substitutions (unknown) (no (unknown) (unknown) software. (units (unkn own) date) Although every unknown) effort is made to edit content, foster care case manager errors (unknown) (no (unknown) (unknown) twins and due in (units (unknown) date) October 2021. Has a unknown) history of depression. Patient is Result panel 8 (unknown) (no (unknown) (unknown) (no value) (units (unk nown) date) unknown) (unknown) (no (unknown) (unknown) Status: Acute (units ( unknown) date) unknown) (unknown) (no (unknown) (unknown) Status: Suspected (units (unknown) date) unknown) (unknown) (no (unknown) (unknown) (no value) (units (unk nown) date) unknown) (unknown) (no (unknown) (unknown) [place], [place] (units ( unknown) date) [id number] unknown) (unknown) (no (unknown) (unknown) Care Management (units (unknown) date) Visit unknown) (unknown) (no (unknown) (unknown) Date EPDS GAD7 (units (unknown) date) unknown) (unknown) (no (unknown) (unknown) Date PHQ9 GAD7 (units (unknown) date) unknown) (unknown) (no (unknown) (unknown) Draft (units (unkno wn) date) unknown) (unknown) (no (unknown) (unknown) [facility]) (unknown) (no (unknown) (unknown) (no value) (units (unk nown) date) unknown) (unknown) (no (unknown) (unknown) Also has a (units (unk nown) date) previous diagnosis unknown) of bipolar disorder. (unknown) (no (unknown) (unknown) Jr.) (units (unkno wn) date) unknown) (unknown) (no (unknown) (unknown) after delivery (units (unknown) date) once she stopped unknown) breast feeding, but only toook for about 1-2 (unknown) (no (unknown) (unknown) children. (units (unkn own) date) unknown) (unknown) (no (unknown) (unknown) depression that (units (unknown) date) she felt following unknown) the of her other 2 children. (unknown) (no (unknown) (unknown) depression was 10 (units (unknown) date) times worse than unknown) it was before. [place] very fatigued, with (unknown) (no (unknown) (unknown) formula because (units (unknown) date) of jaundice. unknown) (unknown) (no (unknown) (unknown) months. States (units (unknown) date) that this is the unknown) only medication that has helped her. (unknown) (no (unknown) (unknown) more easily (units (un known) date) irritated unknown) (unknown) (no (unknown) (unknown) racing heart and (units (unknown) date) a panicky feeling unknown) all day. Lashing out at significant other, (unknown) (no (unknown) (unknown) since home, (units (un known) date) nursing is going unknown) well. Patient had hoped to nurse both at the same (unknown) (no (unknown) (unknown) time, but proving (units (unknown) date) to be challenging. unknown) Also, pumping and supplementing with (unknown) (no (unknown) (unknown) was and (units (unknown) date) switched to unknown) sertraline. Put back on tegretol about 5-6 mo (unknown) (no (unknown) (unknown) what it was. (units (u nknown) date) unknown) (unknown) (no (unknown) (unknown) yesterday, and (units (unknown) date) was very helpful unknown) while there. Patient and spouse now alone with (unknown) (no (unknown) (unknown) * 25 year old (units ( unknown) date) female referred to unknown) [facility] by Dr. Brown for anxiety and depression. (unknown) (no (unknown) (unknown) (1) Anxiety and (units (unknown) date) depression: unknown) (unknown) (no (unknown) (unknown) (2) Bipolar 2 (units ( unknown) date) disorder: unknown) (unknown) (no (unknown) (unknown) * (units (unkno wn) date) unknown) (unknown) (no (unknown) (unknown) * 2 daughters (units ( unknown) date) ages 3 + 4. unknown) (unknown) (no (unknown) (unknown) * Also encouraged (units (unknown) date) her to explore unknown) breathing apps for her phone. (unknown) (no (unknown) (unknown) * Delivery went (units (unknown) date) well. Initial unknown) nursing in the hospital was a bit challenging, but (unknown) (no (unknown) (unknown) * Discussed (units (un known) date) grounding unknown) techniques, and provided patient with worksheet. (unknown) (no (unknown) (unknown) * Hasn't used (units ( unknown) date) hydroxyzine since unknown) babies were born. (unknown) (no (unknown) (unknown) * Mother was able (units (unknown) date) to be present for unknown) the , as patient had hoped. She left (unknown) (no (unknown) (unknown) * June 2021 - (units (unknown) date) citalopram 10 mg unknown) daily. Reports that her anxiety and (unknown) (no (unknown) (unknown) * Patient has (units ( unknown) date) been participating unknown) in [facility] since July 2022. (unknown) (no (unknown) (unknown) * Patient says (units (unknown) date) spouse is very unknown) positive and helpful. (unknown) (no (unknown) (unknown) * Patient's twin (units (unknown) date) babies were born unknown) on 10/25/21, a boy and a girl (Farwell + Devin (unknown) (no (unknown) (unknown) * Reports that (units (unknown) date) she is crying at unknown) night, but not sure why. Not feeling the same (unknown) (no (unknown) (unknown) * Sertraline -? (units (unknown) date) made her feel unknown) worse, similar to how she felt with citalopram. (unknown) (no (unknown) (unknown) * Started (units (unkn own) date) escitalopram 3 unknown) days ago (unknown) (no (unknown) (unknown) * Tegretol - 2016 (units (unknown) date) - 2017 after unknown) diagnosis of bipolar disorder. Stopped when she (unknown) (no (unknown) (unknown) * Took something (units (unknown) date) for anxiety for a unknown) brief time last year, it worked, but unsure (unknown) (no (unknown) (unknown) * Twins born (units (u nknown) date) October 25, 2021. unknown) (unknown) (no (unknown) (unknown) * Will start (units (u nknown) date) escitalopram after unknown) babies born,. (unknown) (no (unknown) (unknown) * With spouse for (units (unknown) date) 5 years and unknown) for 3. (unknown) (no (unknown) (unknown) * hydroxyzine - (units (unknown) date) 1-2 times per day unknown) - feels it helps because it 'knocks me out.' (unknown) (no (unknown) (unknown) * hydroxyzine - (units (unknown) date) makes very sleepy. unknown) (unknown) (no (unknown) (unknown) - Escitalopram: (units (unknown) date) if trying as unknown) prescribed, monitor closely for any worsening mood (unknown) (no (unknown) (unknown) - Recommend close (units (unknown) date) monitoring during unknown) period given h/o severe (unknown) (no (unknown) (unknown) (units (unknown) date) unknown) (unknown) (no (unknown) (unknown) (units (unknown) date) unknown) (unknown) (no (unknown) (unknown) (units (unknown) date) unknown) (unknown) (no (unknown) (unknown) (units (unknown) date) unknown) ------- (unknown) (no (unknown) (unknown) 0081 (units (unkno wn) date) unknown) (unknown) (no (unknown) (unknown) 01/16/22 (units (unkno wn) date) unknown) (unknown) (no (unknown) (unknown) 08/07/21 (units (unkno wn) date) unknown) (unknown) (no (unknown) (unknown) 08/07/21 - (units (unk nown) date) Provided patient unknown) with Support Warm Line and Motherhood (unknown) (no (unknown) (unknown) 08/07/21 14 17 (units (unknown) date) unknown) (unknown) (no (unknown) (unknown) 10/09/21 - (units (unknown) date) Zaid's unknown) RECOMMENDATIONS for Dr. Brown +. Dr. Gilliam: (unknown) (no (unknown) (unknown) 09/19/21 - (units (u nknown) date) Tawana - unknown) (unknown) (no (unknown) (unknown) 25 year old female (units (unknown) date) participating in unknown) [facility] for symptoms of anxiety and depression. (unknown) (no (unknown) (unknown) 10/15/21 - (units (unkno wn) date) unknown) (unknown) (no (unknown) (unknown) 10/15/21 11 17 (units (u nknown) date) unknown) (unknown) (no (unknown) (unknown) 10/31/21 - (units (unkn own) date) unknown) (unknown) (no (unknown) (unknown) 10/31/21 13 12 (units ( unknown) date) unknown) (unknown) (no (unknown) (unknown) 12/09/21 Kevin 8 X (units (unknown) date) unknown) (unknown) (no (unknown) (unknown) 55 minutes (units (unk nown) date) unknown) (unknown) (no (unknown) (unknown) 01/16/22 - (units (unkno wn) date) unknown) (unknown) (no (unknown) (unknown) 01/16/22 9 10 (units (un known) date) unknown) (unknown) (no (unknown) (unknown) Age/Sex: 26 / F (units (unknown) date) Date of Service: unknown) (unknown) (no (unknown) (unknown) All participants (units (unknown) date) + their role: unknown) (Providers,Parent, Spouse,etc): (unknown) (no (unknown) (unknown) Attending Dr: (units ( unknown) date) Sandy GROSS unknown) (unknown) (no (unknown) (unknown) [facility] Assessment + (units (unknown) date) Plan unknown) (unknown) (no (unknown) (unknown) BHIP Commercial Door Installer (units (unknown) date) Follow-Up unknown) (unknown) (no (unknown) (unknown) BHIP Goal #1: (units ( unknown) date) Medication unknown) management (unknown) (no (unknown) (unknown) BHIP Goal #2: (units ( unknown) date) Support around new unknown) babies. (unknown) (no (unknown) (unknown) BHIP Goal (units (unkn own) date) Progress#1: 5 (See unknown) medication section.) (unknown) (no (unknown) (unknown) BHIP Goal (units (unkn own) date) Progress#2: 4 unknown) (unknown) (no (unknown) (unknown) Becoming easily (units (unknown) date) annoyed or unknown) irritable: 2 = More than half the days (unknown) (no (unknown) (unknown) Being so restless (units (unknown) date) that it is hard to unknown) sit still: 0 = Not at all (unknown) (no (unknown) (unknown) Case Formulation (units (unknown) date) unknown) (unknown) (no (unknown) (unknown) Cognitive (units (unkn own) date) Behavioral unknown) Therapy, Motivational Interviewing and Mindfulness (unknown) (no (unknown) (unknown) : 1995 (units (unknown) date) Acct:[id number] unknown) (unknown) (no (unknown) (unknown) Dept at (units (unkno wn) date) . unknown) (unknown) (no (unknown) (unknown) Documented By: (units (unknown) date) Sandy Juan unknown) 01/16/22 0811 (unknown) (no (unknown) (unknown) Family:: (units (unkno wn) date) unknown) (unknown) (no (unknown) (unknown) Feeling afraid as (units (unknown) date) if something awful unknown) might happen: 0 = Not at all (unknown) (no (unknown) (unknown) Feeling nervous, (units (unknown) date) anxious, or on unknown) edge: 2 = More than half the days (unknown) (no (unknown) (unknown) SOHEILA-7 (units (unkno wn) date) unknown) (unknown) (no (unknown) (unknown) Goals + Progress (units (unknown) date) unknown) (unknown) (no (unknown) (unknown) Interventions (units ( unknown) date) unknown) (unknown) (no (unknown) (unknown) Loc: [facility] (units (unkno wn) date) unknown) (unknown) (no (unknown) (unknown) Location of (units (un known) date) patient:: Home unknown) (unknown) (no (unknown) (unknown) Location of (units (un known) date) provider:: [facility] unknown) (unknown) (no (unknown) (unknown) Medication Update (units (unknown) date) unknown) (unknown) (no (unknown) (unknown) Not being able to (units (unknown) date) stop or control unknown) worryin = More than half the days (unknown) (no (unknown) (unknown) Other (units (unkno wn) date) unknown) (unknown) (no (unknown) (unknown) Other/Additional (units (unknown) date) Details:: unknown) (unknown) (no (unknown) (unknown) Past: (units (unkno wn) date) unknown) (unknown) (no (unknown) (unknown) Patient consented (units (unknown) date) to receive unknown) services via telehealth?: Yes (unknown) (no (unknown) (unknown) Patient was (units (un known) date) diagnosed in 2016 unknown) with bipolar disorder. Patient is with (unknown) (no (unknown) (unknown) Patient: (units (unkno wn) date) MannyZev R unknown) MR#: [id number] (unknown) (no (unknown) (unknown) Presenting (units (unk nown) date) Problem Update unknown) (unknown) (no (unknown) (unknown) Previous session: (units (unknown) date) unknown) (unknown) (no (unknown) (unknown) Protective (units (unk nown) date) Factors: Spouse of unknown) 4 years, 2 daughters (unknown) (no (unknown) (unknown) Questionnaires (units (unknown) date) unknown) (unknown) (no (unknown) (unknown) Real-time,sychron (units (unknown) date) ous services were unknown) performed via:: VSee (unknown) (no (unknown) (unknown) Signed By: (units (unk nown) date) unknown) (unknown) (no (unknown) (unknown) Source: Developed (units (unknown) date) by Drs. Gianfranco Montesinos unknown) Selin Peters, Jozef Gordon (unknown) (no (unknown) (unknown) Sandy Juan, (units (unknown) date) RECORD CHANGER ASSEMBLER, HOUSEKEEPER AND LAUNDRY ASSISTANT unknown) (unknown) (no (unknown) (unknown) TeleHealth (units (unk nown) date) unknown) (unknown) (no (unknown) (unknown) This note may (units ( unknown) date) have been all or unknown) partially generated using voice recognition (unknown) (no (unknown) (unknown) Time Spent (units (unk nown) date) unknown) (unknown) (no (unknown) (unknown) Time Spent: (units (un known) date) unknown) (unknown) (no (unknown) (unknown) Total SOHEILA-7 score (units (unknown) date) (0-4 normal; 5-9 unknown) mild; 10-14 moderate; 15-21 severe): 10 (unknown) (no (unknown) (unknown) Trouble relaxing: (units (unknown) date) 2 = More than half unknown) the days (unknown) (no (unknown) (unknown) Understood (units (unk nown) date) information. unknown) (unknown) (no (unknown) (unknown) Were services (units ( unknown) date) performed via unknown) telephone only?: No (unknown) (no (unknown) (unknown) Worrying too much (units (unknown) date) about different unknown) things: 2 = More than half the days (unknown) (no (unknown) (unknown) and colleagues, (units (unknown) date) with an unknown) educational lisbeth from [employer]. (unknown) (no (unknown) (unknown) appropriateness (units (unknown) date) of that program unknown) vs. other options. (unknown) (no (unknown) (unknown) escitalopram (units (u nknown) date) oxalate 10 mg unknown) tablet (Lexapro) 10 mg PO DAILY (unknown) (no (unknown) (unknown) have occurred. (units (unknown) date) If there are any unknown) questions, please contact the Medical Records (unknown) (no (unknown) (unknown) hoping to get (units ( unknown) date) assistance with unknown) medication for her anxiety. (unknown) (no (unknown) (unknown) including SI (units (u nknown) date) unknown) (unknown) (no (unknown) (unknown) may occur. (units (unk nown) date) Occasional unknown) wrong-word or 'sound-alike' substitutions may have (unknown) (no (unknown) (unknown) occurred due to (units (unknown) date) the inherent unknown) limitations of voice recognition software. Please (unknown) (no (unknown) (unknown) (units (unk nown) date) depression. , unknown) Zaid to discuss with [facility] team to assess (unknown) (no (unknown) (unknown) read the note (units ( unknown) date) carefully and unknown) recognize, using context, where these substitutions (unknown) (no (unknown) (unknown) software. (units (unkn own) date) Although every unknown) effort is made to edit content, foster care case manager errors (unknown) (no (unknown) (unknown) twins and due in (units (unknown) date) October 2021. Has a unknown) history of depression. Patient is Result panel 9 (unknown) (no (unknown) (unknown) (no value) (units (unk nown) date) unknown) (unknown) (no (unknown) (unknown) Status: Acute (units ( unknown) date) unknown) (unknown) (no (unknown) (unknown) Status: Suspected (units (unknown) date) unknown) (unknown) (no (unknown) (unknown) (no value) (units (unk nown) date) unknown) (unknown) (no (unknown) (unknown) [place], [place] (units ( unknown) date) [id number] unknown) (unknown) (no (unknown) (unknown) Care Management (units (unknown) date) Visit unknown) (unknown) (no (unknown) (unknown) Date EPDS GAD7 (units (unknown) date) unknown) (unknown) (no (unknown) (unknown) Date PHQ9 GAD7 (units (unknown) date) unknown) (unknown) (no (unknown) (unknown) Draft (units (unkno wn) date) unknown) (unknown) (no (unknown) (unknown) [facility]) (unknown) (no (unknown) (unknown) (no value) (units (unk nown) date) unknown) (unknown) (no (unknown) (unknown) Also has a (units (unk nown) date) previous diagnosis unknown) of bipolar disorder. (unknown) (no (unknown) (unknown) Jr.) (units (unkno wn) date) unknown) (unknown) (no (unknown) (unknown) after delivery (units (unknown) date) once she stopped unknown) breast feeding, but only toook for about 1-2 (unknown) (no (unknown) (unknown) children. (units (unkn own) date) unknown) (unknown) (no (unknown) (unknown) depression that (units (unknown) date) she felt following unknown) the of her other 2 children. (unknown) (no (unknown) (unknown) depression was 10 (units (unknown) date) times worse than unknown) it was before. [place] very fatigued, with (unknown) (no (unknown) (unknown) formula because (units (unknown) date) of jaundice. unknown) (unknown) (no (unknown) (unknown) months. States (units (unknown) date) that this is the unknown) only medication that has helped her. (unknown) (no (unknown) (unknown) more easily (units (un known) date) irritated unknown) (unknown) (no (unknown) (unknown) racing heart and (units (unknown) date) a panicky feeling unknown) all day. Lashing out at significant other, (unknown) (no (unknown) (unknown) since home, (units (un known) date) nursing is going unknown) well. Patient had hoped to nurse both at the same (unknown) (no (unknown) (unknown) time, but proving (units (unknown) date) to be challenging. unknown) Also, pumping and supplementing with (unknown) (no (unknown) (unknown) was and (units (unknown) date) switched to unknown) sertraline. Put back on tegretol about 5-6 mo (unknown) (no (unknown) (unknown) what it was. (units (u nknown) date) unknown) (unknown) (no (unknown) (unknown) yesterday, and (units (unknown) date) was very helpful unknown) while there. Patient and spouse now alone with (unknown) (no (unknown) (unknown) * 25 year old (units ( unknown) date) female referred to unknown) [facility] by Dr. Brown for anxiety and depression. (unknown) (no (unknown) (unknown) (1) Anxiety and (units (unknown) date) depression: unknown) (unknown) (no (unknown) (unknown) (2) Bipolar 2 (units ( unknown) date) disorder: unknown) (unknown) (no (unknown) (unknown) * (units (unkno wn) date) unknown) (unknown) (no (unknown) (unknown) * 2 daughters (units ( unknown) date) ages 3 + 4. unknown) (unknown) (no (unknown) (unknown) * Also encouraged (units (unknown) date) her to explore unknown) breathing apps for her phone. (unknown) (no (unknown) (unknown) * Delivery went (units (unknown) date) well. Initial unknown) nursing in the hospital was a bit challenging, but (unknown) (no (unknown) (unknown) * Discussed (units (un known) date) grounding unknown) techniques, and provided patient with worksheet. (unknown) (no (unknown) (unknown) * Emailed and (units ( unknown) date) mailed via [employer] unknown) Worries Worksheet. (unknown) (no (unknown) (unknown) * Hasn't used (units ( unknown) date) hydroxyzine since unknown) babies were born. (unknown) (no (unknown) (unknown) * Mother was able (units (unknown) date) to be present for unknown) the , as patient had hoped. She left (unknown) (no (unknown) (unknown) * June 2021 - (units (unknown) date) citalopram 10 mg unknown) daily. Reports that her anxiety and (unknown) (no (unknown) (unknown) * Patient has (units ( unknown) date) been participating unknown) in [facility] since July 2022. (unknown) (no (unknown) (unknown) * Patient says (units (unknown) date) spouse is very unknown) positive and helpful. (unknown) (no (unknown) (unknown) * Patient's twin (units (unknown) date) babies were born unknown) on 10/25/21, a boy and a girl (Farwell + Devin (unknown) (no (unknown) (unknown) * Reports that (units (unknown) date) she is crying at unknown) night, but not sure why. Not feeling the same (unknown) (no (unknown) (unknown) * Sertraline -? (units (unknown) date) made her feel unknown) worse, similar to how she felt with citalopram. (unknown) (no (unknown) (unknown) * Started (units (unkn own) date) escitalopram 3 unknown) days ago (unknown) (no (unknown) (unknown) * Tegretol - 2016 (units (unknown) date) - 2017 after unknown) diagnosis of bipolar disorder. Stopped when she (unknown) (no (unknown) (unknown) * Took something (units (unknown) date) for anxiety for a unknown) brief time last year, it worked, but unsure (unknown) (no (unknown) (unknown) * Twins born (units (u nknown) date) October 25, 2021. unknown) (unknown) (no (unknown) (unknown) * Will start (units (u nknown) date) escitalopram after unknown) babies born,. (unknown) (no (unknown) (unknown) * With spouse for (units (unknown) date) 5 years and unknown) for 3. (unknown) (no (unknown) (unknown) * hydroxyzine - (units (unknown) date) 1-2 times per day unknown) - feels it helps because it 'knocks me out.' (unknown) (no (unknown) (unknown) * hydroxyzine - (units (unknown) date) makes very sleepy. unknown) (unknown) (no (unknown) (unknown) - Escitalopram: (units (unknown) date) if trying as unknown) prescribed, monitor closely for any worsening mood (unknown) (no (unknown) (unknown) - Recommend close (units (unknown) date) monitoring during unknown) period given h/o severe (unknown) (no (unknown) (unknown) (units (unknown) date) unknown) (unknown) (no (unknown) (unknown) (units (unknown) date) unknown) (unknown) (no (unknown) (unknown) (units (unknown) date) unknown) (unknown) (no (unknown) (unknown) (units (unknown) date) unknown) ------- (unknown) (no (unknown) (unknown) 0081 (units (unkno wn) date) unknown) (unknown) (no (unknown) (unknown) 01/16/22 (units (unkno wn) date) unknown) (unknown) (no (unknown) (unknown) 08/07/21 (units (unkno wn) date) unknown) (unknown) (no (unknown) (unknown) 08/07/21 - (units (unk nown) date) Provided patient unknown) with Support Warm Line and Motherhood (unknown) (no (unknown) (unknown) 08/07/21 14 17 (units (unknown) date) unknown) (unknown) (no (unknown) (unknown) 10/09/21 - (units (unknown) date) Zaid's unknown) RECOMMENDATIONS for Dr. Brown +. Dr. Gilliam: (unknown) (no (unknown) (unknown) 09/19/21 - (units (u nknown) date) Tawana - unknown) (unknown) (no (unknown) (unknown) 25 year old female (units (unknown) date) participating in unknown) BHIP for symptoms of anxiety and depression. (unknown) (no (unknown) (unknown) 10/15/21 - (units (unkno wn) date) unknown) (unknown) (no (unknown) (unknown) 10/15/21 11 17 (units (u nknown) date) unknown) (unknown) (no (unknown) (unknown) 10/31/21 - (units (unkn own) date) unknown) (unknown) (no (unknown) (unknown) 10/31/21 13 12 (units ( unknown) date) unknown) (unknown) (no (unknown) (unknown) 12/09/21 [place] 8 X (units (unknown) date) unknown) (unknown) (no (unknown) (unknown) 55 minutes (units (unk nown) date) unknown) (unknown) (no (unknown) (unknown) 01/16/22 - (units (unkno wn) date) unknown) (unknown) (no (unknown) (unknown) 01/16/22 9 10 (units (un known) date) unknown) (unknown) (no (unknown) (unknown) Age/Sex: 26 / F (units (unknown) date) Date of Service: unknown) (unknown) (no (unknown) (unknown) All participants (units (unknown) date) + their role: unknown) (Providers,Parent, Spouse,etc): (unknown) (no (unknown) (unknown) Attending Dr: (units ( unknown) date) Sandy Juan RECORD CHANGER ASSEMBLER unknown) (unknown) (no (unknown) (unknown) BHIP Assessment + (units (unknown) date) Plan unknown) (unknown) (no (unknown) (unknown) BHIP Commercial Door Installer (units (unknown) date) Follow-Up unknown) (unknown) (no (unknown) (unknown) BHIP Goal #1: (units ( unknown) date) Medication unknown) management (unknown) (no (unknown) (unknown) BHIP Goal #2: (units ( unknown) date) Support around new unknown) babies. (unknown) (no (unknown) (unknown) BHIP Goal (units (unkn own) date) Progress#1: 5 (See unknown) medication section.) (unknown) (no (unknown) (unknown) BHIP Goal (units (unkn own) date) Progress#2: 4 unknown) (unknown) (no (unknown) (unknown) Becoming easily (units (unknown) date) annoyed or unknown) irritable: 2 = More than half the days (unknown) (no (unknown) (unknown) Being so restless (units (unknown) date) that it is hard to unknown) sit still: 0 = Not at all (unknown) (no (unknown) (unknown) Case Formulation (units (unknown) date) unknown) (unknown) (no (unknown) (unknown) Cognitive (units (unkn own) date) Behavioral unknown) Therapy, Motivational Interviewing and Mindfulness (unknown) (no (unknown) (unknown) : 1995 (units (unknown) date) Acct:[id number] unknown) (unknown) (no (unknown) (unknown) Dept at (units (unkno wn) date) . unknown) (unknown) (no (unknown) (unknown) Documented By: (units (unknown) date) Sandy Juan unknown) 01/16/22 0811 (unknown) (no (unknown) (unknown) Family:: (units (unkno wn) date) unknown) (unknown) (no (unknown) (unknown) Feeling afraid as (units (unknown) date) if something awful unknown) might happen: 0 = Not at all (unknown) (no (unknown) (unknown) Feeling nervous, (units (unknown) date) anxious, or on unknown) edge: 2 = More than half the days (unknown) (no (unknown) (unknown) SOHEILA-7 (units (unkno wn) date) unknown) (unknown) (no (unknown) (unknown) Goals + Progress (units (unknown) date) unknown) (unknown) (no (unknown) (unknown) Interventions (units ( unknown) date) unknown) (unknown) (no (unknown) (unknown) Loc: [facility] (units (unkno wn) date) unknown) (unknown) (no (unknown) (unknown) Location of (units (un known) date) patient:: Home unknown) (unknown) (no (unknown) (unknown) Location of (units (un known) date) provider:: [facility] unknown) (unknown) (no (unknown) (unknown) Medication Update (units (unknown) date) unknown) (unknown) (no (unknown) (unknown) Not being able to (units (unknown) date) stop or control unknown) worryin = More than half the days (unknown) (no (unknown) (unknown) Other (units (unkno wn) date) unknown) (unknown) (no (unknown) (unknown) Other/Additional (units (unknown) date) Details:: unknown) (unknown) (no (unknown) (unknown) Past: (units (unkno wn) date) unknown) (unknown) (no (unknown) (unknown) Patient consented (units (unknown) date) to receive unknown) services via telehealth?: Yes (unknown) (no (unknown) (unknown) Patient was (units (un known) date) diagnosed in 2016 unknown) with bipolar disorder. Patient is with (unknown) (no (unknown) (unknown) Patient: (units (unkno wn) date) Zev Bryant R unknown) MR#: [id number] (unknown) (no (unknown) (unknown) Presenting (units (unk nown) date) Problem Update unknown) (unknown) (no (unknown) (unknown) Previous session: (units (unknown) date) unknown) (unknown) (no (unknown) (unknown) Protective (units (unk nown) date) Factors: Spouse of unknown) 4 years, 2 daughters (unknown) (no (unknown) (unknown) Questionnaires (units (unknown) date) unknown) (unknown) (no (unknown) (unknown) Real-time,sychron (units (unknown) date) ous services were unknown) performed via:: VSee (unknown) (no (unknown) (unknown) Signed By: (units (unk nown) date) unknown) (unknown) (no (unknown) (unknown) Source: Developed (units (unknown) date) by Drs. Gianfranco Montesinos unknown) Selin Peters, Jozef Gordon (unknown) (no (unknown) (unknown) Sandy Juan, (units (unknown) date) RECORD CHANGER ASSEMBLER, HOUSEKEEPER AND LAUNDRY ASSISTANT unknown) (unknown) (no (unknown) (unknown) TeleHealth (units (unk nown) date) unknown) (unknown) (no (unknown) (unknown) This note may (units ( unknown) date) have been all or unknown) partially generated using voice recognition (unknown) (no (unknown) (unknown) Time Spent (units (unk nown) date) unknown) (unknown) (no (unknown) (unknown) Time Spent: (units (un known) date) unknown) (unknown) (no (unknown) (unknown) Total SOHEILA-7 score (units (unknown) date) (0-4 normal; 5-9 unknown) mild; 10-14 moderate; 15-21 severe): 10 (unknown) (no (unknown) (unknown) Trouble relaxing: (units (unknown) date) 2 = More than half unknown) the days (unknown) (no (unknown) (unknown) Understood (units (unk nown) date) information. unknown) (unknown) (no (unknown) (unknown) Were services (units ( unknown) date) performed via unknown) telephone only?: No (unknown) (no (unknown) (unknown) Worrying too much (units (unknown) date) about different unknown) things: 2 = More than half the days (unknown) (no (unknown) (unknown) and colleagues, (units (unknown) date) with an unknown) educational lisbeth from [employer] (unknown) (no (unknown) (unknown) appropriateness (units (unknown) date) of that program unknown) vs. other options. (unknown) (no (unknown) (unknown) escitalopram (units (u nknown) date) oxalate 10 mg unknown) tablet (Lexapro) 10 mg PO DAILY (unknown) (no (unknown) (unknown) have occurred. (units (unknown) date) If there are any unknown) questions, please contact the Medical Records (unknown) (no (unknown) (unknown) hoping to get (units ( unknown) date) assistance with unknown) medication for her anxiety. (unknown) (no (unknown) (unknown) including SI (units (u nknown) date) unknown) (unknown) (no (unknown) (unknown) may occur. (units (unk nown) date) Occasional unknown) wrong-word or 'sound-alike' substitutions may have (unknown) (no (unknown) (unknown) occurred due to (units (unknown) date) the inherent unknown) limitations of voice recognition software. Please (unknown) (no (unknown) (unknown) (units (unk nown) date) depression. , unknown) Mar to discuss with [facility] team to assess (unknown) (no (unknown) (unknown) read the note (units ( unknown) date) carefully and unknown) recognize, using context, where these substitutions (unknown) (no (unknown) (unknown) software. (units (unkn own) date) Although every unknown) effort is made to edit content, foster care case manager errors (unknown) (no (unknown) (unknown) twins and due in (units (unknown) date) October 2021. Has a unknown) history of depression. Patient is Result panel 10 (unknown) (no (unknown) (unknown) (no value) (units (unk nown) date) unknown) (unknown) (no (unknown) (unknown) Status: Acute (units ( unknown) date) unknown) (unknown) (no (unknown) (unknown) Status: Suspected (units (unknown) date) unknown) (unknown) (no (unknown) (unknown) (no value) (units (unk nown) date) unknown) (unknown) (no (unknown) (unknown) 01/16/22 1633 (units ( unknown) date) unknown) (unknown) (no (unknown) (unknown) [place], [place] (units ( unknown) date) [id number] unknown) (unknown) (no (unknown) (unknown) Care Management (units (unknown) date) Visit unknown) (unknown) (no (unknown) (unknown) Date EPDS GAD7 (units (unknown) date) unknown) (unknown) (no (unknown) (unknown) Date PHQ9 GAD7 (units (unknown) date) unknown) (unknown) (no (unknown) (unknown) [facility]) (unknown) (no (unknown) (unknown) Signed (units (unkno wn) date) unknown) (unknown) (no (unknown) (unknown) (no value) (units (unk nown) date) unknown) (unknown) (no (unknown) (unknown) Also has a (units (unk nown) date) previous diagnosis unknown) of bipolar disorder. (unknown) (no (unknown) (unknown) accuracy of them. (units (unknown) date) unknown) (unknown) (no (unknown) (unknown) after delivery (units (unknown) date) once she stopped unknown) breast feeding, but only toook for about 1-2 (unknown) (no (unknown) (unknown) and has been (units (u nknown) date) thinking about it unknown) daily. Spouse seems to be doing fine. (unknown) (no (unknown) (unknown) and she is trying (units (unknown) date) to have this unknown) addressed. Three ports stated that the (unknown) (no (unknown) (unknown) another apparatus (units (unknown) date) on the door that unknown) prevents the children from opening them. (unknown) (no (unknown) (unknown) away by Child (units ( unknown) date) Protective unknown) Services (CPS). CPS interviewed them and have closed (unknown) (no (unknown) (unknown) but doesn't want (units (unknown) date) to feel too unknown) sleepy. (unknown) (no (unknown) (unknown) children were (units ( unknown) date) half a mile away unknown) from home. (unknown) (no (unknown) (unknown) depression was 10 (units (unknown) date) times worse than unknown) it was before. [place] very fatigued, with (unknown) (no (unknown) (unknown) finds that she (units (unknown) date) and the children unknown) have better days when they get to spend time (unknown) (no (unknown) (unknown) found them and (units (unknown) date) [place] the unknown[place]. [place] (unknown) (no (unknown) (unknown) have only 1000 (units (unknown) date) calories per day, unknown) for 2 weeks. Patient is excited about the (unknown) (no (unknown) (unknown) having (units (unknown) date) twins. unknown) (unknown) (no (unknown) (unknown) house with their (units (unknown) date) guns pulled. unknown) Children were fine and had walked as far as the (unknown) (no (unknown) (unknown) months. States (units (unknown) date) that this is the unknown) only medication that has helped her. (unknown) (no (unknown) (unknown) more easily (units (un known) date) irritated unknown) (unknown) (no (unknown) (unknown) neighbor's yard. (units (unknown) date) unknown) (unknown) (no (unknown) (unknown) outside at the (units (unknown) date) park. unknown) (unknown) (no (unknown) (unknown) racing heart and (units (unknown) date) a panicky feeling unknown) all day. Lashing out at significant other, (unknown) (no (unknown) (unknown) says that they (units (unknown) date) woke up to the unknown) police and [employer] Police in their (unknown) (no (unknown) (unknown) she feeds her (units ( unknown) date) children their unknown) meals. (unknown) (no (unknown) (unknown) surgery. (units (unkno wn) date) unknown) (unknown) (no (unknown) (unknown) the case. (units (unkn own) date) Patient and spouse unknown) have installed alarms on the doors. And put (unknown) (no (unknown) (unknown) was and (units (unknown) date) switched to unknown) sertraline. Put back on tegretol about 5-6 mo (unknown) (no (unknown) (unknown) were sleeping, (units (unknown) date) their other 2 unknown) children got out of the house. The neighbors (unknown) (no (unknown) (unknown) what it was. (units (u nknown) date) unknown) (unknown) (no (unknown) (unknown) * 25 year old (units ( unknown) date) female referred to unknown) BHIP by Dr. Brown for anxiety and depression. (unknown) (no (unknown) (unknown) (1) Anxiety and (units (unknown) date) depression: unknown) (unknown) (no (unknown) (unknown) (2) Bipolar 2 (units ( unknown) date) disorder: unknown) (unknown) (no (unknown) (unknown) * 2 daughters (units ( unknown) date) ages 3 + 4. unknown) (unknown) (no (unknown) (unknown) * 01/16/22 - (units (unk nown) date) Emailed and mailed unknown) via [facility] Worries Worksheet. (unknown) (no (unknown) (unknown) * Also encouraged (units (unknown) date) her to explore unknown) breathing apps for her phone. (unknown) (no (unknown) (unknown) * Denies feeling (units (unknown) date) symptoms of unknown) depression at this time. (unknown) (no (unknown) (unknown) * Discussed (units (un known) date) grounding unknown) techniques, and provided patient with worksheet. (unknown) (no (unknown) (unknown) * Encouraged (units (u nknown) date) patient to write unknown) down her worries and fear and challenge the (unknown) (no (unknown) (unknown) * Escitalopram 10 (units (unknown) date) mg. unknown) (unknown) (no (unknown) (unknown) * Hasn't used (units ( unknown) date) hydroxyzine since unknown) babies were born. (unknown) (no (unknown) (unknown) * Hydroxyzine - (units (unknown) date) makes very sleepy. unknown) Wanting something to help more with anxiety, (unknown) (no (unknown) (unknown) * In November, soon (units (unknown) date) after the twins unknown) were born and while the patient and her (unknown) (no (unknown) (unknown) * June 2021 - (units (unknown) date) citalopram 10 mg unknown) daily. Reports that her anxiety and (unknown) (no (unknown) (unknown) * Patient has (units ( unknown) date) been participating unknown) in [facility] since July 2022. (unknown) (no (unknown) (unknown) * Patient is (units (un known) date) getting out more unknown) with the kids since the weather has improved. She (unknown) (no (unknown) (unknown) * Patient is (units (u nknown) date) having a lot of unknown) negative automatic thoughts around this situation, (unknown) (no (unknown) (unknown) * Patient said (units ( unknown) date) that she read the unknown) police report in that was not accurate (unknown) (no (unknown) (unknown) * Patient says (units ( unknown) date) that she forgets unknown) to eat sometimes, encouraged patient to eat when (unknown) (no (unknown) (unknown) * Patient says (units (unknown) date) that they were so unknown) exhausted at the time that this happened from (unknown) (no (unknown) (unknown) * Patient shares (units (unknown) date) that she recently unknown) has had elevated anxiety. (unknown) (no (unknown) (unknown) * Sertraline -? (units (unknown) date) made her feel unknown) worse, similar to how she felt with citalopram. (unknown) (no (unknown) (unknown) * Since this (units (u nknown) date) event, patient has unknown) been worrying about her children being taken (unknown) (no (unknown) (unknown) * Started (units (unkn own) date) escitalopram 3 unknown) days ago (unknown) (no (unknown) (unknown) * Tegretol - 2016 (units (unknown) date) - 2017 after unknown) diagnosis of bipolar disorder. Stopped when she (unknown) (no (unknown) (unknown) * Took something (units (unknown) date) for anxiety for a unknown) brief time last year, it worked, but unsure (unknown) (no (unknown) (unknown) * Twins born (units (u nknown) date) October 25, 2021. unknown) (Georgiana + Devin Gibson) (unknown) (no (unknown) (unknown) * Will have (units (un known) date) weight reduction unknown) surgery on 02/10/22. Prior to this, will need to (unknown) (no (unknown) (unknown) * Will start (units (u nknown) date) escitalopram after unknown) babies born,. (unknown) (no (unknown) (unknown) * With spouse for (units (unknown) date) 5 years and unknown) for 3. (unknown) (no (unknown) (unknown) * hydroxyzine - (units (unknown) date) 1-2 times per day unknown) - feels it helps because it 'knocks me out.' (unknown) (no (unknown) (unknown) - Escitalopram: (units (unknown) date) if trying as unknown) prescribed, monitor closely for any worsening mood (unknown) (no (unknown) (unknown) - Recommend close (units (unknown) date) monitoring during unknown) period given h/o severe (unknown) (no (unknown) (unknown) (units (unknown) date) unknown) (unknown) (no (unknown) (unknown) (units (unknown) date) unknown) (unknown) (no (unknown) (unknown) (units (unknown) date) unknown) (unknown) (no (unknown) (unknown) (units (unknown) date) unknown) ------- (unknown) (no (unknown) (unknown) [id number] (units (unkno wn) date) unknown) (unknown) (no (unknown) (unknown) 01/16/22 (units (unkno wn) date) unknown) (unknown) (no (unknown) (unknown) 08/07/21 (units (unkno wn) date) unknown) (unknown) (no (unknown) (unknown) 08/07/21 - (units (unk nown) date) Provided patient unknown) with Support Warm Line and Motherhood (unknown) (no (unknown) (unknown) 08/07/21 14 17 (units (unknown) date) unknown) (unknown) (no (unknown) (unknown) 10/09/21 - (units (unknown) date) Zaid's unknown) RECOMMENDATIONS for Dr. Brown +. Dr. Gilliam: (unknown) (no (unknown) (unknown) 09/19/21 - (units (u nknown) date) Tawana - unknown) (unknown) (no (unknown) (unknown) 25 year old female (units (unknown) date) participating in unknown) BHIP for symptoms of anxiety and depression. (unknown) (no (unknown) (unknown) 10/15/21 - (units (unkno wn) date) unknown) (unknown) (no (unknown) (unknown) 10/15/21 11 17 (units (u nknown) date) unknown) (unknown) (no (unknown) (unknown) 10/31/21 - (units (unkn own) date) unknown) (unknown) (no (unknown) (unknown) 10/31/21 13 12 (units ( unknown) date) unknown) (unknown) (no (unknown) (unknown) 12/09/21 [place] 8 X (units (unknown) date) unknown) (unknown) (no (unknown) (unknown) 01/16/22 - (units (unkno wn) date) unknown) (unknown) (no (unknown) (unknown) 01/16/22 9 10 (units (un known) date) unknown) (unknown) (no (unknown) (unknown) 60 minutes (units (unk nown) date) unknown) (unknown) (no (unknown) (unknown) Age/Sex: 26 / F (units (unknown) date) Date of Service: unknown) (unknown) (no (unknown) (unknown) All participants (units (unknown) date) + their role: unknown) (Providers,Parent, Spouse,etc): (unknown) (no (unknown) (unknown) Attending Dr: (units ( unknown) date) Sandy GROSS unknown) (unknown) (no (unknown) (unknown) BHIP Assessment + (units (unknown) date) Plan unknown) (unknown) (no (unknown) (unknown) BHIP Commercial Door Installer (units (unknown) date) Follow-Up unknown) (unknown) (no (unknown) (unknown) BHIP Goal #1: (units ( unknown) date) Medication unknown) management (unknown) (no (unknown) (unknown) BHIP Goal #2: (units ( unknown) date) Support around new unknown) babies. (unknown) (no (unknown) (unknown) BHIP Goal (units (unkn own) date) Progress#1: 5 (See unknown) medication section.) (unknown) (no (unknown) (unknown) BHIP Goal (units (unkn own) date) Progress#2: 4 unknown) (unknown) (no (unknown) (unknown) Becoming easily (units (unknown) date) annoyed or unknown) irritable: 2 = More than half the days (unknown) (no (unknown) (unknown) Being so restless (units (unknown) date) that it is hard to unknown) sit still: 0 = Not at all (unknown) (no (unknown) (unknown) Case Formulation (units (unknown) date) unknown) (unknown) (no (unknown) (unknown) Cognitive (units (unkn own) date) Behavioral unknown) Therapy, Motivational Interviewing and Mindfulness (unknown) (no (unknown) (unknown) : 1995 (units (unknown) date) Acct:[id number] unknown) (unknown) (no (unknown) (unknown) Dept at (units (unkno wn) date) . unknown) (unknown) (no (unknown) (unknown) Documented By: (units (unknown) date) Sandy Juan unknown) 01/16/22 0811 (unknown) (no (unknown) (unknown) Family:: (units (unkno wn) date) unknown) (unknown) (no (unknown) (unknown) Feeling afraid as (units (unknown) date) if something awful unknown) might happen: 0 = Not at all (unknown) (no (unknown) (unknown) Feeling nervous, (units (unknown) date) anxious, or on unknown) edge: 2 = More than half the days (unknown) (no (unknown) (unknown) SOHEILA-7 (units (unkno wn) date) unknown) (unknown) (no (unknown) (unknown) Goals + Progress (units (unknown) date) unknown) (unknown) (no (unknown) (unknown) Interventions (units ( unknown) date) unknown) (unknown) (no (unknown) (unknown) Loc: [facility] (units (unkno wn) date) unknown) (unknown) (no (unknown) (unknown) Location of (units (un known) date) patient:: Home unknown) (unknown) (no (unknown) (unknown) Location of (units (un known) date) provider:: [facility] unknown) (unknown) (no (unknown) (unknown) Medication Update (units (unknown) date) unknown) (unknown) (no (unknown) (unknown) Not being able to (units (unknown) date) stop or control unknown) worryin = More than half the days (unknown) (no (unknown) (unknown) Other (units (unkno wn) date) unknown) (unknown) (no (unknown) (unknown) Other/Additional (units (unknown) date) Details:: unknown) (unknown) (no (unknown) (unknown) Past: (units (unkno wn) date) unknown) (unknown) (no (unknown) (unknown) Patient consented (units (unknown) date) to receive unknown) services via telehealth?: Yes (unknown) (no (unknown) (unknown) Patient was (units (un known) date) diagnosed in 2016 unknown) with bipolar disorder. Patient is with (unknown) (no (unknown) (unknown) Patient: (units (unkno wn) date) Zev Bryant R unknown) MR#: [id number] (unknown) (no (unknown) (unknown) Presenting (units (unk nown) date) Problem Update unknown) (unknown) (no (unknown) (unknown) Previous session: (units (unknown) date) unknown) (unknown) (no (unknown) (unknown) Protective (units (unk nown) date) Factors: Spouse of unknown) 4 years, 2 daughters (unknown) (no (unknown) (unknown) Questionnaires (units (unknown) date) unknown) (unknown) (no (unknown) (unknown) Real-time,sychron (units (unknown) date) ous services were unknown) performed via:: VSee (unknown) (no (unknown) (unknown) Signed By: (units (unk nown) date) <Electronically unknown) signed by RENATO Tran> (unknown) (no (unknown) (unknown) Source: Developed (units (unknown) date) by Drs. Gianfranco Montesinos unknown) Selin Peters, Jozef Gordon (unknown) (no (unknown) (unknown) Sandy Juan, (units (unknown) date) RECORD CHANGER ASSEMBLER, [facility] unknown) (unknown) (no (unknown) (unknown) TeleHealth (units (unk nown) date) unknown) (unknown) (no (unknown) (unknown) This note may (units ( unknown) date) have been all or unknown) partially generated using voice recognition (unknown) (no (unknown) (unknown) Time Spent (units (unk nown) date) unknown) (unknown) (no (unknown) (unknown) Time Spent: (units (un known) date) unknown) (unknown) (no (unknown) (unknown) Total SOHEILA-7 score (units (unknown) date) (0-4 normal; 5-9 unknown) mild; 10-14 moderate; 15-21 severe): 10 (unknown) (no (unknown) (unknown) Trouble relaxing: (units (unknown) date) 2 = More than half unknown) the days (unknown) (no (unknown) (unknown) Understood (units (unk nown) date) information. unknown) (unknown) (no (unknown) (unknown) Were services (units ( unknown) date) performed via unknown) telephone only?: No (unknown) (no (unknown) (unknown) Worrying too much (units (unknown) date) about different unknown) things: 2 = More than half the days (unknown) (no (unknown) (unknown) and colleagues, (units (unknown) date) with an unknown) educational lisbeth from [employer]. (unknown) (no (unknown) (unknown) appropriateness (units (unknown) date) of that program unknown) vs. other options. (unknown) (no (unknown) (unknown) escitalopram (units (u nknown) date) oxalate 10 mg unknown) tablet (Lexapro) 10 mg PO DAILY (unknown) (no (unknown) (unknown) have occurred. (units (unknown) date) If there are any unknown) questions, please contact the Medical Records (unknown) (no (unknown) (unknown) hoping to get (units ( unknown) date) assistance with unknown) medication for her anxiety. (unknown) (no (unknown) (unknown) including SI (units (u nknown) date) unknown) (unknown) (no (unknown) (unknown) may occur. (units (unk nown) date) Occasional unknown) wrong-word or 'sound-alike' substitutions may have (unknown) (no (unknown) (unknown) occurred due to (units (unknown) date) the inherent unknown) limitations of voice recognition software. Please (unknown) (no (unknown) (unknown) (units (unk nown) date) depression. , unknown) Zaid to discuss with [facility] team to assess (unknown) (no (unknown) (unknown) read the note (units ( unknown) date) carefully and unknown) recognize, using context, where these substitutions (unknown) (no (unknown) (unknown) software. (units (unkn own) date) Although every unknown) effort is made to edit content, foster care case manager errors (unknown) (no (unknown) (unknown) twins and due in (units (unknown) date) October 2021. Has a unknown) history of depression. Patient is Result panel 11 (unknown) (no (unknown) (unknown) (no value) (units (unk nown) date) unknown) (unknown) (no (unknown) (unknown) Status: Acute (units ( unknown) date) unknown) (unknown) (no (unknown) (unknown) Status: Suspected (units (unknown) date) unknown) (unknown) (no (unknown) (unknown) [place] (units ( unknown) date) [id number] unknown) (unknown) (no (unknown) (unknown) Care Management (units (unknown) date) Visit unknown) (unknown) (no (unknown) (unknown) Draft (units (unkno wn) date) unknown) (unknown) (no (unknown) (unknown) [facility] ([facility] unknown) (unknown) (no (unknown) (unknown) (no value) (units (unk nown) date) unknown) (unknown) (no (unknown) (unknown) Patient was (units (un known) date) diagnosed in 2015 unknown) with bipolar disorder. Patient is with (unknown) (no (unknown) (unknown) (1) Anxiety and (units (unknown) date) depression: unknown) (unknown) (no (unknown) (unknown) (2) Bipolar 2 (units ( unknown) date) disorder: unknown) (unknown) (no (unknown) (unknown) (Copy from (units (unknown) date) Zaid's 10/09/21 unknown) note) (unknown) (no (unknown) (unknown) (escitalopram (units ( unknown) date) prescribed but not unknown) currently taking) (unknown) (no (unknown) (unknown) - Escitalopram: (units (unknown) date) if trying as unknown) prescribed, monitor closely for any worsening mood (unknown) (no (unknown) (unknown) - Proceed with (units (unknown) date) [facility] visits; will unknown) need to navigate schedule surrounding delivery (unknown) (no (unknown) (unknown) - Recommend close (units (unknown) date) monitoring during unknown) period given h/o severe (unknown) (no (unknown) (unknown) - can continue (units (unknown) date) consultation for unknown) medication management if mood stabilizer needed (unknown) (no (unknown) (unknown) - can provide (units ( unknown) date) unknown) resources such as warm line (unknown) (no (unknown) (unknown) (units (unknown) date) unknown) (unknown) (no (unknown) (unknown) 0081 (units (unkno wn) date) unknown) (unknown) (no (unknown) (unknown) 01/20/22 (units (unkno wn) date) unknown) (unknown) (no (unknown) (unknown) 08/07/21 - (units (unk nown) date) Provided patient unknown) with Support Warm Line and Motherhood (unknown) (no (unknown) (unknown) 25 year old female (units (unknown) date) participating in unknown) [facility] for symptoms of anxiety and depression. (unknown) (no (unknown) (unknown) 3 (units (unkno wn) date) unknown) (unknown) (no (unknown) (unknown) Age/Sex: 26 / F (units (unknown) date) Date of Service: unknown) (unknown) (no (unknown) (unknown) Attending : (units ( unknown) date) Nereida Mar unknown) D.O. (unknown) (no (unknown) (unknown) BHIP Assessment + (units (unknown) date) Plan unknown) (unknown) (no (unknown) (unknown) BHIP CHARLEY Juan: (units (unknown) date) unknown) (unknown) (no (unknown) (unknown) BHIP CoCM: Time (units (unknown) date) spent in case unknown) review with life care planner: 10 min (unknown) (no (unknown) (unknown) BHIP Goal (units (unkn own) date) #1:?Medication unknown) management (unknown) (no (unknown) (unknown) BHIP Goal (units (unkn own) date) #2:?Support around unknown) new babies. (unknown) (no (unknown) (unknown) BHIP Goal (units (unkn own) date) Progress#1:?5 (See unknown) medication section.) (unknown) (no (unknown) (unknown) BHIP Goal (units (unkn own) date) Progress#2:?4 unknown) (unknown) (no (unknown) (unknown) BHIP Psychiatric (units (unknown) date) [place] [facility] Case unknown) Review + Treatment Plan (unknown) (no (unknown) (unknown) BHIP (units (unkno wn) date) RECOMMENDATIONS + unknown) TREATMENT PLAN: (unknown) (no (unknown) (unknown) BHIP SUMMARY + (units (unknown) date) UPDATES unknown) (unknown) (no (unknown) (unknown) BHIP Week: 23 (units ( unknown) date) unknown) (unknown) (no (unknown) (unknown) BHIP visits with (units (unknown) date) CM Juan unknown) scheduled (unknown) (no (unknown) (unknown) Case Formulation (units (unknown) date) unknown) (unknown) (no (unknown) (unknown) Cognitive (units (unkn own) date) Behavioral unknown) Therapy, Motivational Interviewing and Mindfulness (unknown) (no (unknown) (unknown) Currently (units (unkn own) date) hydroxyzine unknown) (unknown) (no (unknown) (unknown) : 1995 (units (unknown) date) Acct:[id number] unknown) (unknown) (no (unknown) (unknown) Dept at (units (unkno wn) date) . unknown) (unknown) (no (unknown) (unknown) Documented By: (units (unknown) date) Nereida Mar unknown) DeclanOPema 01/20/22 082 (unknown) (no (unknown) (unknown) Dr. Brown +. (units (unknown) date) Tawana: unknown) (unknown) (no (unknown) (unknown) Evaluation with (units (unknown) date) Dr. Mar unknown) completed 10/09/21 (unknown) (no (unknown) (unknown) Follow-Up (units (unkn own) date) unknown) (unknown) (no (unknown) (unknown) Goals + Progress (units (unknown) date) unknown) (unknown) (no (unknown) (unknown) INDIRECT CARE: (units (unknown) date) The below unknown) treatment considerations and suggestions are based on (unknown) (no (unknown) (unknown) Interventions (units ( unknown) date) unknown) (unknown) (no (unknown) (unknown) Loc: [facility] (units (unkno wn) date) unknown) (unknown) (no (unknown) (unknown) Note (units (unkno wn) date) unknown) (unknown) (no (unknown) (unknown) Notes (units (unkno wn) date) unknown) (unknown) (no (unknown) (unknown) PSYCHOTROPIC (units (u nknown) date) MEDICATION UPDATES unknown) (unknown) (no (unknown) (unknown) Patient: (units (unkno wn) date) Zev Bryant R unknown) MR#: [id number] (unknown) (no (unknown) (unknown) Plan (units (unkno wn) date) unknown) (unknown) (no (unknown) (unknown) Protective (units (unk nown) date) Factors:?Spouse of unknown) 4 years, 2 daughters (unknown) (no (unknown) (unknown) Psychiatrist: (units ( unknown) date) unknown) (unknown) (no (unknown) (unknown) RECOMMENDATIONS: (units (unknown) date) unknown) (unknown) (no (unknown) (unknown) Signed By: (units (unk nown) date) unknown) (unknown) (no (unknown) (unknown) This note may (units ( unknown) date) have been all or unknown) partially generated using voice recognition (unknown) (no (unknown) (unknown) Understood (units (unk nown) date) information. unknown) (unknown) (no (unknown) (unknown) [Embedded Image (units (unknown) date) Not Available] unknown) (unknown) (no (unknown) (unknown) appropriateness (units (unknown) date) of that program unknown) vs. other options. (unknown) (no (unknown) (unknown) consultation with (units (unknown) date) the [facility] care unknown) contracts manager and a review of information available in (unknown) (no (unknown) (unknown) current clinical (units (unknown) date) status. Please unknown) feel free to contact me with any questions about (unknown) (no (unknown) (unknown) have occurred. (units (unknown) date) If there are any unknown) questions, please contact the Medical Records (unknown) (no (unknown) (unknown) hoping to get (units ( unknown) date) assistance with unknown) medication for her anxiety. (unknown) (no (unknown) (unknown) in the future (units ( unknown) date) unknown) (unknown) (no (unknown) (unknown) including SI (units (u nknown) date) unknown) (unknown) (no (unknown) (unknown) may occur. (units (unk nown) date) Occasional unknown) wrong-word or 'sound-alike' substitutions may have (unknown) (no (unknown) (unknown) occurred due to (units (unknown) date) the inherent unknown) limitations of voice recognition software. Please (unknown) (no (unknown) (unknown) (units (unk nown) date) depression. Dr, unknown) Mar to discuss with [facility] team to assess (unknown) (no (unknown) (unknown) read the note (units ( unknown) date) carefully and unknown) recognize, using context, where these substitutions (unknown) (no (unknown) (unknown) recommendations (units (unknown) date) should be unknown) implemented with consideration of relevant history and (unknown) (no (unknown) (unknown) software. (units (unkn own) date) Although every unknown) effort is made to edit content, foster care case manager errors (unknown) (no (unknown) (unknown) the care of this (units (unknown) date) patient. unknown) (unknown) (no (unknown) (unknown) the electronic (units (unknown) date) medical record. I unknown) have not personally examined the patient. All (unknown) (no (unknown) (unknown) twins and due in (units (unknown) date) October 2021. Has a unknown) history of depression. Patient is Result panel 12 (unknown) (no (unknown) (unknown) (no value) (units (unk nown) date) unknown) (unknown) (no (unknown) (unknown) Status: Acute (units ( unknown) date) unknown) (unknown) (no (unknown) (unknown) Status: Suspected (units (unknown) date) unknown) (unknown) (no (unknown) (unknown) (no value) (units (unk nown) date) unknown) (unknown) (no (unknown) (unknown) 08/07/21 14 (units (unknown) date) 17 unknown) (unknown) (no (unknown) (unknown) 10/15/21 11 (units (u nknown) date) 17 unknown) (unknown) (no (unknown) (unknown) 10/31/21 13 (units ( unknown) date) 12 unknown) (unknown) (no (unknown) (unknown) 12/09/21 [address] X (units (unknown) date) unknown) (unknown) (no (unknown) (unknown) 01/16/22 9 10 (units (unknown) date) unknown) (unknown) (no (unknown) (unknown) [place], [place] (units ( unknown) date) [id number] unknown) (unknown) (no (unknown) (unknown) Care Management (units (unknown) date) Visit unknown) (unknown) (no (unknown) (unknown) Date? EPDS? GAD7 (units (unknown) date) unknown) (unknown) (no (unknown) (unknown) Date? PHQ9? GAD7 (units (unknown) date) unknown) (unknown) (no (unknown) (unknown) Draft (units (unkno wn) date) unknown) (unknown) (no (unknown) (unknown) [facility] ([facility] date[facility] unknown) (unknown) (no (unknown) (unknown) (no value) (units (unk nown) date) unknown) (unknown) (no (unknown) (unknown) Patient was (units (un known) date) diagnosed in 2016 unknown) with bipolar disorder. Patient is with (unknown) (no (unknown) (unknown) # Needs follow-up (units (unknown) date) visit for IP unknown) monitoring now that past period; (unknown) (no (unknown) (unknown) (1) Anxiety and (units (unknown) date) depression: unknown) (unknown) (no (unknown) (unknown) (2) Bipolar 2 (units ( unknown) date) disorder: unknown) (unknown) (no (unknown) (unknown) (Copy from (units (unknown) date) Zaid's 10/09/21 unknown) note) (unknown) (no (unknown) (unknown) - Agree with (units (u nknown) date) interventions as unknown) planned (unknown) (no (unknown) (unknown) - Escitalopram: (units (unknown) date) can try increase unknown) to 20mg with close monitoring for activation (unknown) (no (unknown) (unknown) - [ (units (unknown) date) considerations for unknown) anxiety; alternative to hydroxyzine] (unknown) (no (unknown) (unknown) - can continue (units (unknown) date) consultation for unknown) medication management if mood stabilizer needed (unknown) (no (unknown) (unknown) (units (unknown) date) unknown) (unknown) (no (unknown) (unknown) (units (unknown) date) unknown) (unknown) (no (unknown) (unknown) (units (unknown) date) unknown) (unknown) (no (unknown) (unknown) -Recent anxiety (units (unknown) date) with significant unknown) prompting event (unknown) (no (unknown) (unknown) 008 (units (unkno wn) date) unknown) (unknown) (no (unknown) (unknown) 01/20/22 (units (unkno wn) date) unknown) (unknown) (no (unknown) (unknown) 08/07/21 - (units (unk nown) date) Provided patient unknown) with Support Warm Line and Motherhood (unknown) (no (unknown) (unknown) 25 year old female (units (unknown) date) participating in unknown) BHIP for symptoms of anxiety and depression. (unknown) (no (unknown) (unknown) 3 (units (unkno wn) date) unknown) (unknown) (no (unknown) (unknown) 10/15/21 - (units (unkno wn) date) unknown) (unknown) (no (unknown) (unknown) 10/31/21 - (units (unkn own) date) unknown) (unknown) (no (unknown) (unknown) 01/16/22 - (units (unkno wn) date) unknown) (unknown) (no (unknown) (unknown) Age/Sex: 26 / F (units (unknown) date) Date of Service: unknown) (unknown) (no (unknown) (unknown) Attending Dr: (units ( unknown) date) Nereida Mar unknown) D.O. (unknown) (no (unknown) (unknown) BHIP Assessment + (units (unknown) date) Plan unknown) (unknown) (no (unknown) (unknown) BHIP CM Juan: (units (unknown) date) unknown) (unknown) (no (unknown) (unknown) BHIP CoCM: Time (units (unknown) date) spent in case unknown) review with life care planner: 5 min (unknown) (no (unknown) (unknown) BHIP Goal (units (unkn own) date) #1:?Medication unknown) management (unknown) (no (unknown) (unknown) BHIP Goal (units (unkn own) date) #2:?Support around unknown) new babies. (unknown) (no (unknown) (unknown) BHIP Goal (units (unkn own) date) Progress#1:?5 (See unknown) medication section.) (unknown) (no (unknown) (unknown) BHIP Goal (units (unkn own) date) Progress#2:?4 unknown) (unknown) (no (unknown) (unknown) BHIP Psychiatric (units (unknown) date) [place] Case unknown) Review + Treatment Plan (unknown) (no (unknown) (unknown) BHIP (units (unkno wn) date) RECOMMENDATIONS + unknown) TREATMENT PLAN: (unknown) (no (unknown) (unknown) BH SUMMARY + (units (unknown) date) UPDATES unknown) (unknown) (no (unknown) (unknown) BHIP Week: 23 (units ( unknown) date) unknown) (unknown) (no (unknown) (unknown) Case Formulation (units (unknown) date) unknown) (unknown) (no (unknown) (unknown) Cognitive (units (unkn own) date) Behavioral unknown) Therapy, Motivational Interviewing and Mindfulness (unknown) (no (unknown) (unknown) : 1995 (units (unknown) date) Acct:[id number] unknown) (unknown) (no (unknown) (unknown) Dept at (units (unkno wn) date) . unknown) (unknown) (no (unknown) (unknown) Documented By: (units (unknown) date) Nereida Mar unknown) D.O. 01/20/22 082 (unknown) (no (unknown) (unknown) Escitalopram 10 (units (unknown) date) mg. unknown) (unknown) (no (unknown) (unknown) Evaluation with (units (unknown) date) Dr. Mar unknown) completed 10/09/21 (unknown) (no (unknown) (unknown) Follow-Up (units (unkn own) date) unknown) (unknown) (no (unknown) (unknown) Goals + Progress (units (unknown) date) unknown) (unknown) (no (unknown) (unknown) Hasn't used (units (un known) date) hydroxyzine since unknown) babies were born. (unknown) (no (unknown) (unknown) Hydroxyzine - (units ( unknown) date) makes very sleepy. unknown) Wanting something to help more with anxiety, (unknown) (no (unknown) (unknown) INDIRECT CARE: (units (unknown) date) The below unknown) treatment considerations and suggestions are based on (unknown) (no (unknown) (unknown) Interventions (units ( unknown) date) unknown) (unknown) (no (unknown) (unknown) Loc: [facility] (units (unkno wn) date) unknown) (unknown) (no (unknown) (unknown) Note (units (unkno wn) date) unknown) (unknown) (no (unknown) (unknown) Notes (units (unkno wn) date) unknown) (unknown) (no (unknown) (unknown) PCP Dr. Gilliam: (units (unknown) date) unknown) (unknown) (no (unknown) (unknown) PSYCHOTROPIC (units (u nknown) date) MEDICATION UPDATES unknown) (unknown) (no (unknown) (unknown) Patient: (units (unkno wn) date) Zev Bryant R unknown) MR#: [id number] (unknown) (no (unknown) (unknown) Plan (units (unkno wn) date) unknown) (unknown) (no (unknown) (unknown) Protective (units (unk nown) date) Factors:?Spouse of unknown) 4 years, 2 daughters (unknown) (no (unknown) (unknown) Psychiatrist: (units ( unknown) date) unknown) (unknown) (no (unknown) (unknown) RECOMMENDATIONS: (units (unknown) date) unknown) (unknown) (no (unknown) (unknown) Signed By: (units (unk nown) date) unknown) (unknown) (no (unknown) (unknown) Started (units (unkno wn) date) escitalopram 3 unknown) days ago (unknown) (no (unknown) (unknown) This note may (units ( unknown) date) have been all or unknown) partially generated using voice recognition (unknown) (no (unknown) (unknown) Twins born (units (unk nown) date) 10/25/21 unknown) (unknown) (no (unknown) (unknown) Understood (units (unk nown) date) information. unknown) (unknown) (no (unknown) (unknown) Will start (units (unk nown) date) escitalopram after unknown) babies born,. (unknown) (no (unknown) (unknown) [Embedded Image (units (unknown) date) Not Available] unknown) (unknown) (no (unknown) (unknown) but doesn't want (units (unknown) date) to feel too unknown) sleepy. (unknown) (no (unknown) (unknown) consultation with (units (unknown) date) the [facility] care unknown) contracts manager and a review of information available in (unknown) (no (unknown) (unknown) current clinical (units (unknown) date) status. Please unknown) feel free to contact me with any questions about (unknown) (no (unknown) (unknown) have occurred. (units (unknown) date) If there are any unknown) questions, please contact the Medical Records (unknown) (no (unknown) (unknown) hoping to get (units ( unknown) date) assistance with unknown) medication for her anxiety. (unknown) (no (unknown) (unknown) hydroxyzine - 1-2 (units (unknown) date) times per day - unknown) feels it helps because it 'knocks me out.' (unknown) (no (unknown) (unknown) in the future (units ( unknown) date) unknown) (unknown) (no (unknown) (unknown) may occur. (units (unk nown) date) Occasional unknown) wrong-word or 'sound-alike' substitutions may have (unknown) (no (unknown) (unknown) occurred due to (units (unknown) date) the inherent unknown) limitations of voice recognition software. Please (unknown) (no (unknown) (unknown) please have your (units (unknown) date) team call to unknown) schedule (unknown) (no (unknown) (unknown) read the note (units ( unknown) date) carefully and unknown) recognize, using context, where these substitutions (unknown) (no (unknown) (unknown) recommendations (units (unknown) date) should be unknown) implemented with consideration of relevant history and (unknown) (no (unknown) (unknown) software. (units (unkn own) date) Although every unknown) effort is made to edit content, foster care case manager errors (unknown) (no (unknown) (unknown) the care of this (units (unknown) date) patient. unknown) (unknown) (no (unknown) (unknown) the electronic (units (unknown) date) medical record. I unknown) have not personally examined the patient. All (unknown) (no (unknown) (unknown) twins and due in (units (unknown) date) October 2021. Has a unknown) history of depression. Patient is Result panel 13 (unknown) (no (unknown) (unknown) (no value) (units (unk nown) date) unknown) (unknown) (no (unknown) (unknown) Status: Acute (units ( unknown) date) unknown) (unknown) (no (unknown) (unknown) Status: Suspected (units (unknown) date) unknown) (unknown) (no (unknown) (unknown) (no value) (units (unk nown) date) unknown) (unknown) (no (unknown) (unknown) 01/27/22 1100 (units ( unknown) date) unknown) (unknown) (no (unknown) (unknown) 08/07/21 14 (units (unknown) date) 17 unknown) (unknown) (no (unknown) (unknown) 10/15/21 11 (units (u nknown) date) 17 unknown) (unknown) (no (unknown) (unknown) 10/31/21 13 (units ( unknown) date) 12 unknown) (unknown) (no (unknown) (unknown) 12/09/21 [address] X (units (unknown) date) unknown) (unknown) (no (unknown) (unknown) 01/16/22 9 10 (units (unknown) date) unknown) (unknown) (no (unknown) (unknown) [place] (units ( unknown) date) [id number] unknown) (unknown) (no (unknown) (unknown) Care Management (units (unknown) date) Visit unknown) (unknown) (no (unknown) (unknown) Date? EPDS? GAD7 (units (unknown) date) unknown) (unknown) (no (unknown) (unknown) Date? PHQ9? GAD7 (units (unknown) date) unknown) (unknown) (no (unknown) (unknown) [facility] unknown) (unknown) (no (unknown) (unknown) Signed (units (unkno wn) date) unknown) (unknown) (no (unknown) (unknown) (no value) (units (unk nown) date) unknown) (unknown) (no (unknown) (unknown) Patient was (units (un known) date) diagnosed in 2016 unknown) with bipolar disorder. Patient is with (unknown) (no (unknown) (unknown) # Needs follow-up (units (unknown) date) visit for IP unknown) monitoring now that past period; (unknown) (no (unknown) (unknown) (1) Anxiety and (units (unknown) date) depression: unknown) (unknown) (no (unknown) (unknown) (2) Bipolar 2 (units ( unknown) date) disorder: unknown) (unknown) (no (unknown) (unknown) - Agree with (units (u nknown) date) interventions as unknown) planned (unknown) (no (unknown) (unknown) - Consider (units (unk n) date) alternatives to unknown) hydroxyzine to use as needed for anxiety; in (unknown) (no (unknown) (unknown) - Escitalopram: (units (unknown) date) can try increase unknown) to 20mg with close monitoring for activation (unknown) (no (unknown) (unknown) - can continue (units (unknown) date) consultation for unknown) medication management if mood stabilizer needed (unknown) (no (unknown) (unknown) (units (unknown) date) unknown) (unknown) (no (unknown) (unknown) (units (unknown) date) unknown) (unknown) (no (unknown) (unknown) (units (unknown) date) unknown) (unknown) (no (unknown) (unknown) -Recent anxiety (units (unknown) date) with significant unknown) prompting event (unknown) (no (unknown) (unknown) 0081 (units (unkno wn) date) unknown) (unknown) (no (unknown) (unknown) 01/20/22 (units (unkno wn) date) unknown) (unknown) (no (unknown) (unknown) 08/07/21 - (units (unk n) date) Provided patient unknown) with Support Warm Line and Motherhood (unknown) (no (unknown) (unknown) 25 year old female (units (unknown) date) participating in unknown) [facility] for symptoms of anxiety and depression. (unknown) (no (unknown) (unknown) 3 (units (unkno wn) date) unknown) (unknown) (no (unknown) (unknown) 10/15/21 - (units (unkno wn) date) unknown) (unknown) (no (unknown) (unknown) 10/31/21 - (units (unkn own) date) unknown) (unknown) (no (unknown) (unknown) 01/16/22 - (units (unkno wn) date) unknown) (unknown) (no (unknown) (unknown) Age/Sex: 26 / F (units (unknown) date) Date of Service: unknown) (unknown) (no (unknown) (unknown) Attending Dr: (units ( unknown) date) Nereida Mar unknown) D.O. (unknown) (no (unknown) (unknown) BHIP Assessment + (units (unknown) date) Plan unknown) (unknown) (no (unknown) (unknown) BHIP CM Juan: (units (unknown) date) unknown) (unknown) (no (unknown) (unknown) BHIP CoCM: Time (units (unknown) date) spent in case unknown) review with life care planner: 5 min (unknown) (no (unknown) (unknown) BHIP Goal (units (unkn own) date) #1:?Medication unknown) management (unknown) (no (unknown) (unknown) BHIP Goal (units (unkn own) date) #2:?Support around unknown) new babies. (unknown) (no (unknown) (unknown) BHIP Goal (units (unkn own) date) Progress#1:?5 (See unknown) medication section.) (unknown) (no (unknown) (unknown) BHIP Goal (units (unkn own) date) Progress#2:?4 unknown) (unknown) (no (unknown) (unknown) BHIP Psychiatric (units (unknown) date) [place] Tam[place] Case unknown) Review + Treatment Plan (unknown) (no (unknown) (unknown) BHIP (units (unkno wn) date) RECOMMENDATIONS + unknown) TREATMENT PLAN: (unknown) (no (unknown) (unknown) BHIP SUMMARY + (units (unknown) date) UPDATES unknown) (unknown) (no (unknown) (unknown) BHIP Week: 23 (units ( unknown) date) unknown) (unknown) (no (unknown) (unknown) Case Formulation (units (unknown) date) unknown) (unknown) (no (unknown) (unknown) Cognitive (units (unkn own) date) Behavioral unknown) Therapy, Motivational Interviewing and Mindfulness (unknown) (no (unknown) (unknown) : 1995 (units (unknown) date) Acct:[id number] unknown) (unknown) (no (unknown) (unknown) Dept at (units (unkno wn) date) . unknown) (unknown) (no (unknown) (unknown) Documented By: (units (unknown) date) Nereida Mar unknown) D.O. 01/20/22 082 (unknown) (no (unknown) (unknown) Escitalopram 10 (units (unknown) date) mg. unknown) (unknown) (no (unknown) (unknown) Evaluation with (units (unknown) date) Dr. Mar unknown) completed 10/09/21 (unknown) (no (unknown) (unknown) Follow-Up (units (unkn own) date) unknown) (unknown) (no (unknown) (unknown) Goals + Progress (units (unknown) date) unknown) (unknown) (no (unknown) (unknown) Hasn't used (units (un known) date) hydroxyzine since unknown) babies were born. (unknown) (no (unknown) (unknown) Hydroxyzine - (units ( unknown) date) makes very sleepy. unknown) Wanting something to help more with anxiety, (unknown) (no (unknown) (unknown) INDIRECT CARE: (units (unknown) date) The below unknown) treatment considerations and suggestions are based on (unknown) (no (unknown) (unknown) Interventions (units ( unknown) date) unknown) (unknown) (no (unknown) (unknown) Loc: [facility] (units (unkno wn) date) unknown) (unknown) (no (unknown) (unknown) Note (units (unkno wn) date) unknown) (unknown) (no (unknown) (unknown) Notes (units (unkno wn) date) unknown) (unknown) (no (unknown) (unknown) PCP Dr. Gilliam: (units (unknown) date) unknown) (unknown) (no (unknown) (unknown) PSYCHOTROPIC (units (u nknown) date) MEDICATION UPDATES unknown) (unknown) (no (unknown) (unknown) Patient: (units (unkno wn) date) Zev Bryant R unknown) MR#: [id number] (unknown) (no (unknown) (unknown) Plan (units (unkno wn) date) unknown) (unknown) (no (unknown) (unknown) Protective (units (unk nown) date) Factors:?Spouse of unknown) 4 years, 2 daughters (unknown) (no (unknown) (unknown) Psychiatrist: (units ( unknown) date) unknown) (unknown) (no (unknown) (unknown) RECOMMENDATIONS: (units (unknown) date) unknown) (unknown) (no (unknown) (unknown) Signed By: (units (unk nown) date) <Electronically unknown) signed by Nereida Mar D.O.> (unknown) (no (unknown) (unknown) Started (units (unkno wn) date) escitalopram 3 unknown) days ago (unknown) (no (unknown) (unknown) This note may (units ( unknown) date) have been all or unknown) partially generated using voice recognition (unknown) (no (unknown) (unknown) Twins born (units (unk nown) date) 10/25/21 unknown) (unknown) (no (unknown) (unknown) Understood (units (unk nown) date) information. unknown) (unknown) (no (unknown) (unknown) Will start (units (unk nown) date) escitalopram after unknown) babies born,. (unknown) (no (unknown) (unknown) [Embedded Image (units (unknown) date) Not Available] unknown) (unknown) (no (unknown) (unknown) as long as no (units ( unknown) date) adverse effects unknown) seen in baby after starting (unknown) (no (unknown) (unknown) , (units (unknown) date) low + sporadic use unknown) of gabapentin or lorazepam is typically safe (unknown) (no (unknown) (unknown) but doesn't want (units (unknown) date) to feel too unknown) sleepy. (unknown) (no (unknown) (unknown) consultation with (units (unknown) date) the [facility] care unknown) contracts manager and a review of information available in (unknown) (no (unknown) (unknown) current clinical (units (unknown) date) status. Please unknown) feel free to contact me with any questions about (unknown) (no (unknown) (unknown) have occurred. (units (unknown) date) If there are any unknown) questions, please contact the Medical Records (unknown) (no (unknown) (unknown) hoping to get (units ( unknown) date) assistance with unknown) medication for her anxiety. (unknown) (no (unknown) (unknown) hydroxyzine - 1-2 (units (unknown) date) times per day - unknown) feels it helps because it 'knocks me out.' (unknown) (no (unknown) (unknown) in the future (units ( unknown) date) unknown) (unknown) (no (unknown) (unknown) may occur. (units (unk nown) date) Occasional unknown) wrong-word or 'sound-alike' substitutions may have (unknown) (no (unknown) (unknown) occurred due to (units (unknown) date) the inherent unknown) limitations of voice recognition software. Please (unknown) (no (unknown) (unknown) please have your (units (unknown) date) team call to unknown) schedule (unknown) (no (unknown) (unknown) read the note (units ( unknown) date) carefully and unknown) recognize, using context, where these substitutions (unknown) (no (unknown) (unknown) recommendations (units (unknown) date) should be unknown) implemented with consideration of relevant history and (unknown) (no (unknown) (unknown) software. (units (unkn own) date) Although every unknown) effort is made to edit content, foster care case manager errors (unknown) (no (unknown) (unknown) the care of this (units (unknown) date) patient. unknown) (unknown) (no (unknown) (unknown) the electronic (units (unknown) date) medical record. I unknown) have not personally examined the patient. All (unknown) (no (unknown) (unknown) twins and due in (units (unknown) date) October 2021. Has a unknown) history of depression. Patient is Result panel 14 (unknown) (no (unknown) (unknown) (no value) (units (unk nown) date) unknown) (unknown) (no (unknown) (unknown) Status: Acute (units ( unknown) date) unknown) (unknown) (no (unknown) (unknown) Status: Suspected (units (unknown) date) unknown) (unknown) (no (unknown) (unknown) (no value) (units (unk nown) date) unknown) (unknown) (no (unknown) (unknown) [place], [place] (units ( unknown) date) [id number] unknown) (unknown) (no (unknown) (unknown) Care Management (units (unknown) date) Visit unknown) (unknown) (no (unknown) (unknown) Date EPDS GAD7 (units (unknown) date) unknown) (unknown) (no (unknown) (unknown) Date PHQ9 GAD7 (units (unknown) date) unknown) (unknown) (no (unknown) (unknown) Draft (units (unkno wn) date) unknown) (unknown) (no (unknown) (unknown) [facility]) (unknown) (no (unknown) (unknown) (no value) (units (unk nown) date) unknown) (unknown) (no (unknown) (unknown) Also has a (units (unk nown) date) previous diagnosis unknown) of bipolar disorder. (unknown) (no (unknown) (unknown) accuracy of them. (units (unknown) date) unknown) (unknown) (no (unknown) (unknown) after delivery (units (unknown) date) once she stopped unknown) breast feeding, but only toook for about 1-2 (unknown) (no (unknown) (unknown) and has been (units (u nknown) date) thinking about it unknown) daily. Spouse seems to be doing fine. (unknown) (no (unknown) (unknown) and she is trying (units (unknown) date) to have this unknown) addressed. Three ports stated that the ch (unknown) (no (unknown) (unknown) another apparatus (units (unknown) date) on the door that unknown) prevents the children from opening them. (unknown) (no (unknown) (unknown) away by Child (units ( unknown) date) Protective unknown) Services (CPS). CPS interviewed them and have closed (unknown) (no (unknown) (unknown) but doesn't want (units (unknown) date) to feel too unknown) sleepy. (unknown) (no (unknown) (unknown) depression was 10 (units (unknown) date) times worse than unknown) it was before. [place] very fatigued, with (unknown) (no (unknown) (unknown) finds that she (units (unknown) date) and the children unknown) have better days when they get to spend time (unknown) (no (unknown) (unknown) found them and (units (unknown) date) [place] the unknown[place]. [place] (unknown) (no (unknown) (unknown) have only 1000 (units (unknown) date) calories per day, unknown) for 2 weeks. Patient is excited about the (unknown) (no (unknown) (unknown) having (units (unknown) date) twins. unknown) (unknown) (no (unknown) (unknown) house with their (units (unknown) date) guns pulled. unknown) Children were fine and had walked as far as the (unknown) (no (unknown) (unknown) ildren were half (units (unknown) date) a mile away from unknown) home. (unknown) (no (unknown) (unknown) months. States (units (unknown) date) that this is the unknown) only medication that has helped her. (unknown) (no (unknown) (unknown) more easily (units (un known) date) irritated unknown) (unknown) (no (unknown) (unknown) neighbor's yard. (units (unknown) date) unknown) (unknown) (no (unknown) (unknown) outside at the (units (unknown) date) park. unknown) (unknown) (no (unknown) (unknown) racing heart and (units (unknown) date) a panicky feeling unknown) all day. Lashing out at significant other, (unknown) (no (unknown) (unknown) says that they (units (unknown) date) woke up to the unknown) police and [employer] Police in their (unknown) (no (unknown) (unknown) she feeds her (units ( unknown) date) children their unknown) meals. (unknown) (no (unknown) (unknown) surgery. (units (unkno wn) date) unknown) (unknown) (no (unknown) (unknown) the case. (units (unkn own) date) Patient and spouse unknown) have installed alarms on the doors. And put (unknown) (no (unknown) (unknown) was and (units (unknown) date) switched to unknown) sertraline. Put back on tegretol about 5-6 mo (unknown) (no (unknown) (unknown) were sleeping, (units (unknown) date) their other 2 unknown) children got out of the house. The neighbors (unknown) (no (unknown) (unknown) what it was. (units (u nknown) date) unknown) (unknown) (no (unknown) (unknown) * 25 year old (units ( unknown) date) female referred to unknown) [facility] by Dr. Brown for anxiety and depression. (unknown) (no (unknown) (unknown) # Needs follow-up (units (unknown) date) visit for [facility] unknown) monitoring now that past period; (unknown) (no (unknown) (unknown) (1) Anxiety and (units (unknown) date) depression: unknown) (unknown) (no (unknown) (unknown) (2) Bipolar 2 (units ( unknown) date) disorder: unknown) (unknown) (no (unknown) (unknown) * (units (unkno wn) date) unknown) (unknown) (no (unknown) (unknown) * 2 daughters (units ( unknown) date) ages 3 + 4. unknown) (unknown) (no (unknown) (unknown) * 01/16/22 - (units (unk nown) date) Emailed and mailed unknown) via [facility] Worries Worksheet. (unknown) (no (unknown) (unknown) * Also encouraged (units (unknown) date) her to explore unknown) breathing apps for her phone. (unknown) (no (unknown) (unknown) * Denies feeling (units (unknown) date) symptoms of unknown) depression at this time. (unknown) (no (unknown) (unknown) * Discussed (units (un known) date) grounding unknown) techniques, and provided patient with worksheet. (unknown) (no (unknown) (unknown) * Encouraged (units (u nknown) date) patient to write unknown) down her worries and fear and challenge the (unknown) (no (unknown) (unknown) * Escitalopram 10 (units (unknown) date) mg. unknown) (unknown) (no (unknown) (unknown) * Hasn't used (units ( unknown) date) hydroxyzine since unknown) babies were born. (unknown) (no (unknown) (unknown) * Hydroxyzine - (units (unknown) date) makes very sleepy. unknown) Wanting something to help more with anxiety, (unknown) (no (unknown) (unknown) * In November, soon (units (unknown) date) after the twins unknown) were born and while the patient and her (unknown) (no (unknown) (unknown) * June 2021 - (units (unknown) date) citalopram 10 mg unknown) daily. Reports that her anxiety and (unknown) (no (unknown) (unknown) * Patient has (units ( unknown) date) been participating unknown) in [facility] since July 2022. (unknown) (no (unknown) (unknown) * Patient is (units (un known) date) getting out more unknown) with the kids since the weather has improved. She (unknown) (no (unknown) (unknown) * Patient is (units (u nknown) date) having a lot of unknown) negative automatic thoughts around this situation, (unknown) (no (unknown) (unknown) * Patient said (units ( unknown) date) that she read the unknown) police report in that was not accurate (unknown) (no (unknown) (unknown) * Patient says (units ( unknown) date) that she forgets unknown) to eat sometimes, encouraged patient to eat when (unknown) (no (unknown) (unknown) * Patient says (units (unknown) date) that they were so unknown) exhausted at the time that this happened from (unknown) (no (unknown) (unknown) * Patient shares (units (unknown) date) that she recently unknown) has had elevated anxiety. (unknown) (no (unknown) (unknown) * Sertraline -? (units (unknown) date) made her feel unknown) worse, similar to how she felt with citalopram. (unknown) (no (unknown) (unknown) * Since this (units (u nknown) date) event, patient has unknown) been worrying about her children being taken (unknown) (no (unknown) (unknown) * Started (units (unkn own) date) escitalopram 3 unknown) days ago (unknown) (no (unknown) (unknown) * Tegretol - 2016 (units (unknown) date) - 2017 after unknown) diagnosis of bipolar disorder. Stopped when she (unknown) (no (unknown) (unknown) * Took something (units (unknown) date) for anxiety for a unknown) brief time last year, it worked, but unsure (unknown) (no (unknown) (unknown) * Twins born (units (u nknown) date) October 25, 2021. unknown) (Georgiana + Devin CalixtoPema) (unknown) (no (unknown) (unknown) * Will have (units (un known) date) weight reduction unknown) surgery on 02/10/22. Prior to this, will need to (unknown) (no (unknown) (unknown) * Will start (units (u nknown) date) escitalopram after unknown) babies born,. (unknown) (no (unknown) (unknown) * With spouse for (units (unknown) date) 5 years and unknown) for 3. (unknown) (no (unknown) (unknown) * hydroxyzine - (units (unknown) date) 1-2 times per day unknown) - feels it helps because it 'knocks me out.' (unknown) (no (unknown) (unknown) - Consider (units (unk nown) date) alternatives to unknown) hydroxyzine to use as needed for anxiety; in (unknown) (no (unknown) (unknown) - Escitalopram: (units (unknown) date) can try increase unknown) to 20mg with close monitoring for activation (unknown) (no (unknown) (unknown) - Escitalopram: (units (unknown) date) if trying as unknown) prescribed, monitor closely for any worsening mood (unknown) (no (unknown) (unknown) - Recommend close (units (unknown) date) monitoring during unknown) period given h/o severe (unknown) (no (unknown) (unknown) (units (unknown) date) unknown) (unknown) (no (unknown) (unknown) (units (unknown) date) unknown) (unknown) (no (unknown) (unknown) (units (unknown) date) unknown) (unknown) (no (unknown) (unknown) (units (unknown) date) unknown) (unknown) (no (unknown) (unknown) (units (unknown) date) unknown) ------- (unknown) (no (unknown) (unknown) 0081 (units (unkno wn) date) unknown) (unknown) (no (unknown) (unknown) 01/30/22 (units (unkno wn) date) unknown) (unknown) (no (unknown) (unknown) 08/07/21 (units (unkno wn) date) unknown) (unknown) (no (unknown) (unknown) 08/07/21 - (units (unk nown) date) Provided patient unknown) with Support Warm Line and Motherhood (unknown) (no (unknown) (unknown) 08/07/21 14 17 (units (unknown) date) unknown) (unknown) (no (unknown) (unknown) 10/09/21 - (units (unknown) date) Zaid's unknown) RECOMMENDATIONS for Dr. Brown +. Dr. Gilliam: (unknown) (no (unknown) (unknown) 09/19/21 - (units (u nknown) date) [place]ana - unknown) (unknown) (no (unknown) (unknown) 25 year old female (units (unknown) date) participating in unknown) [facility] for symptoms of anxiety and depression. (unknown) (no (unknown) (unknown) 10/15/21 - (units (unkno wn) date) unknown) (unknown) (no (unknown) (unknown) 10/15/21 11 17 (units (u nknown) date) unknown) (unknown) (no (unknown) (unknown) 10/31/21 - (units (unkn own) date) unknown) (unknown) (no (unknown) (unknown) 10/31/21 13 12 (units ( unknown) date) unknown) (unknown) (no (unknown) (unknown) 12/09/21 [place] [address] X (units (unknown) date) unknown) (unknown) (no (unknown) (unknown) 01/16/22 - (units (unkno wn) date) unknown) (unknown) (no (unknown) (unknown) 01/16/22 9 10 (units (un known) date) unknown) (unknown) (no (unknown) (unknown) 01/20/22 - (units (un known) date) [facility]IP unknown) RECOMMENDATIONS + TREATMENT PLAN RECOMMENDATIONS for (unknown) (no (unknown) (unknown) 60 minutes (units (unk nown) date) unknown) (unknown) (no (unknown) (unknown) Age/Sex: 26 / F (units (unknown) date) Date of Service: unknown) (unknown) (no (unknown) (unknown) All participants (units (unknown) date) + their role: unknown) (Providers,Parent, Spouse,etc): (unknown) (no (unknown) (unknown) Attending Dr: (units ( unknown) date) Sandy GROSS unknown) (unknown) (no (unknown) (unknown) BHIP Assessment + (units (unknown) date) Plan unknown) (unknown) (no (unknown) (unknown) BHIP Commercial Door Installer (units (unknown) date) Follow-Up unknown) (unknown) (no (unknown) (unknown) BHIP Goal #1: (units ( unknown) date) Medication unknown) management (unknown) (no (unknown) (unknown) BHIP Goal #2: (units ( unknown) date) Support around new unknown) babies. (unknown) (no (unknown) (unknown) BHIP Goal (units (unkn own) date) Progress#1: 5 (See unknown) medication section.) (unknown) (no (unknown) (unknown) BHIP Goal (units (unkn own) date) Progress#2: 4 unknown) (unknown) (no (unknown) (unknown) Case Formulation (units (unknown) date) unknown) (unknown) (no (unknown) (unknown) Cognitive (units (unkn own) date) Behavioral unknown) Therapy, Motivational Interviewing and Mindfulness (unknown) (no (unknown) (unknown) : 1995 (units (unknown) date) Acct:[id number] unknown) (unknown) (no (unknown) (unknown) Dept at (units (unkno wn) date) . unknown) (unknown) (no (unknown) (unknown) Documented By: (units (unknown) date) Sheree Juanan RECORD CHANGER ASSEMBLER unknown) 01/30/22 0842 (unknown) (no (unknown) (unknown) Family:: (units (unkno wn) date) unknown) (unknown) (no (unknown) (unknown) Goals + Progress (units (unknown) date) unknown) (unknown) (no (unknown) (unknown) Interventions (units ( unknown) date) unknown) (unknown) (no (unknown) (unknown) Loc: [facility] (units (unkno wn) date) unknown) (unknown) (no (unknown) (unknown) Location of (units (un known) date) patient:: Home unknown) (unknown) (no (unknown) (unknown) Location of (units (un known) date) provider:: [facility] unknown) (unknown) (no (unknown) (unknown) Medication Update (units (unknown) date) unknown) (unknown) (no (unknown) (unknown) Other (units (unkno wn) date) unknown) (unknown) (no (unknown) (unknown) Other/Additional (units (unknown) date) Details:: unknown) (unknown) (no (unknown) (unknown) PCP Dr. Gilliam: (units (unknown) date) unknown) (unknown) (no (unknown) (unknown) Past: (units (unkno wn) date) unknown) (unknown) (no (unknown) (unknown) Patient consented (units (unknown) date) to receive unknown) services via telehealth?: Yes (unknown) (no (unknown) (unknown) Patient was (units (un known) date) diagnosed in 2016 unknown) with bipolar disorder. Patient is with (unknown) (no (unknown) (unknown) Patient: (units (unkno wn) date) MannyOmadeja R unknown) MR#: [id number] (unknown) (no (unknown) (unknown) Presenting (units (unk nown) date) Problem Update unknown) (unknown) (no (unknown) (unknown) Previous session: (units (unknown) date) unknown) (unknown) (no (unknown) (unknown) Protective (units (unk nown) date) Factors: Spouse of unknown) 4 years, 2 daughters (unknown) (no (unknown) (unknown) Real-time,sychron (units (unknown) date) ous services were unknown) performed via:: VSee (unknown) (no (unknown) (unknown) Signed By: (units (unk nown) date) unknown) (unknown) (no (unknown) (unknown) Sandy Juan, (units (unknown) date) RECORD CHANGER ASSEMBLER, HOUSEKEEPER AND LAUNDRY ASSISTANT unknown) (unknown) (no (unknown) (unknown) TeleHealth (units (unk nown) date) unknown) (unknown) (no (unknown) (unknown) This note may (units ( unknown) date) have been all or unknown) partially generated using voice recognition (unknown) (no (unknown) (unknown) Time Spent (units (unk nown) date) unknown) (unknown) (no (unknown) (unknown) Time Spent: (units (un known) date) unknown) (unknown) (no (unknown) (unknown) Understood (units (unk nown) date) information. unknown) (unknown) (no (unknown) (unknown) Were services (units ( unknown) date) performed via unknown) telephone only?: No (unknown) (no (unknown) (unknown) appropriateness (units (unknown) date) of that program unknown) vs. other options. (unknown) (no (unknown) (unknown) as long as no (units ( unknown) date) adverse effects unknown) seen in baby after starting (unknown) (no (unknown) (unknown) , (units (unknown) date) low + sporadic use unknown) of gabapentin or lorazepam is typically safe (unknown) (no (unknown) (unknown) escitalopram (units (u nknown) date) oxalate 10 mg unknown) tablet (Lexapro) 10 mg PO DAILY (unknown) (no (unknown) (unknown) have occurred. (units (unknown) date) If there are any unknown) questions, please contact the Medical Records (unknown) (no (unknown) (unknown) hoping to get (units ( unknown) date) assistance with unknown) medication for her anxiety. (unknown) (no (unknown) (unknown) including SI (units (u nknown) date) unknown) (unknown) (no (unknown) (unknown) may occur. (units (unk nown) date) Occasional unknown) wrong-word or 'sound-alike' substitutions may have (unknown) (no (unknown) (unknown) occurred due to (units (unknown) date) the inherent unknown) limitations of voice recognition software. Please (unknown) (no (unknown) (unknown) please have your (units (unknown) date) team call to unknown) schedule (unknown) (no (unknown) (unknown) (units (unk nown) date) depression. , unknown) Zaid to discuss with [facility] team to assess (unknown) (no (unknown) (unknown) read the note (units ( unknown) date) carefully and unknown) recognize, using context, where these substitutions (unknown) (no (unknown) (unknown) software. (units (unkn own) date) Although every unknown) effort is made to edit content, foster care case manager errors (unknown) (no (unknown) (unknown) twins and due in (units (unknown) date) October 2021. Has a unknown) history of depression. Patient is Result panel 15 (unknown) (no (unknown) (unknown) (no value) (units (unk nown) date) unknown) (unknown) (no (unknown) (unknown) Status: Acute (units ( unknown) date) unknown) (unknown) (no (unknown) (unknown) Status: Suspected (units (unknown) date) unknown) (unknown) (no (unknown) (unknown) (no value) (units (unk nown) date) unknown) (unknown) (no (unknown) (unknown) [place] (units ( unknown) date) [id number] unknown) (unknown) (no (unknown) (unknown) Care Management (units (unknown) date) Visit unknown) (unknown) (no (unknown) (unknown) Date EPDS GAD7 (units (unknown) date) unknown) (unknown) (no (unknown) (unknown) Date PHQ9 GAD7 (units (unknown) date) unknown) (unknown) (no (unknown) (unknown) Draft (units (unkno wn) date) unknown) (unknown) (no (unknown) (unknown) [facility]) (unknown) (no (unknown) (unknown) (no value) (units (unk nown) date) unknown) (unknown) (no (unknown) (unknown) Also has a (units (unk nown) date) previous diagnosis unknown) of bipolar disorder. (unknown) (no (unknown) (unknown) accuracy of them. (units (unknown) date) unknown) (unknown) (no (unknown) (unknown) after delivery (units (unknown) date) once she stopped unknown) breast feeding, but only toook for about 1-2 (unknown) (no (unknown) (unknown) and has been (units (u nknown) date) thinking about it unknown) daily. Spouse seems to be doing fine. (unknown) (no (unknown) (unknown) and she is trying (units (unknown) date) to have this unknown) addressed. Three ports stated that the ch (unknown) (no (unknown) (unknown) another apparatus (units (unknown) date) on the door that unknown) prevents the children from opening them. (unknown) (no (unknown) (unknown) away by Child (units ( unknown) date) Protective unknown) Services (CPS). CPS interviewed them and have closed (unknown) (no (unknown) (unknown) but doesn't want (units (unknown) date) to feel too unknown) sleepy. (unknown) (no (unknown) (unknown) depression was 10 (units (unknown) date) times worse than unknown) it was before. [place] very fatigued, with (unknown) (no (unknown) (unknown) finds that she (units (unknown) date) and the children unknown) have better days when they get to spend time (unknown) (no (unknown) (unknown) found them and (units (unknown) date) [place] the unknown[place]. [place] (unknown) (no (unknown) (unknown) have only 1000 (units (unknown) date) calories per day, unknown) for 2 weeks. Patient is excited about the (unknown) (no (unknown) (unknown) having (units (unknown) date) twins. unknown) (unknown) (no (unknown) (unknown) house with their (units (unknown) date) guns pulled. unknown) Children were fine and had walked as far as the (unknown) (no (unknown) (unknown) ildren were half (units (unknown) date) a mile away from unknown) home. (unknown) (no (unknown) (unknown) months. States (units (unknown) date) that this is the unknown) only medication that has helped her. (unknown) (no (unknown) (unknown) more easily (units (un known) date) irritated unknown) (unknown) (no (unknown) (unknown) neighbor's yard. (units (unknown) date) unknown) (unknown) (no (unknown) (unknown) outside at the (units (unknown) date) park. unknown) (unknown) (no (unknown) (unknown) racing heart and (units (unknown) date) a panicky feeling unknown) all day. Lashing out at significant other, (unknown) (no (unknown) (unknown) says that they (units (unknown) date) woke up to the unknown) police and [employer] in their (unknown) (no (unknown) (unknown) she feeds her (units ( unknown) date) children their unknown) meals. (unknown) (no (unknown) (unknown) surgery. (units (unkno wn) date) unknown) (unknown) (no (unknown) (unknown) the case. (units (unkn own) date) Patient and spouse unknown) have installed alarms on the doors. And put (unknown) (no (unknown) (unknown) was and (units (unknown) date) switched to unknown) sertraline. Put back on tegretol about 5-6 mo (unknown) (no (unknown) (unknown) were sleeping, (units (unknown) date) their other 2 unknown) children got out of the house. The neighbors (unknown) (no (unknown) (unknown) what it was. (units (u nknown) date) unknown) (unknown) (no (unknown) (unknown) * 25 year old (units ( unknown) date) female referred to unknown) IP by Dr. Brown for anxiety and depression. (unknown) (no (unknown) (unknown) # Needs follow-up (units (unknown) date) visit for BHIP unknown) monitoring now that past period; (unknown) (no (unknown) (unknown) (1) Anxiety and (units (unknown) date) depression: unknown) (unknown) (no (unknown) (unknown) (2) Bipolar 2 (units ( unknown) date) disorder: unknown) (unknown) (no (unknown) (unknown) * (units (unkno wn) date) unknown) (unknown) (no (unknown) (unknown) * 2 daughters (units ( unknown) date) ages 3 + 4. unknown) (unknown) (no (unknown) (unknown) * 01/16/22 - (units (unk nown) date) Emailed and mailed unknown) via [facility] Worries Worksheet. (unknown) (no (unknown) (unknown) * Also encouraged (units (unknown) date) her to explore unknown) breathing apps for her phone. (unknown) (no (unknown) (unknown) * Denies feeling (units (unknown) date) symptoms of unknown) depression at this time. (unknown) (no (unknown) (unknown) * Discussed (units (un known) date) grounding unknown) techniques, and provided patient with worksheet. (unknown) (no (unknown) (unknown) * Encouraged (units (u nknown) date) patient to write unknown) down her worries and fear and challenge the (unknown) (no (unknown) (unknown) * Escitalopram 10 (units (unknown) date) mg. unknown) (unknown) (no (unknown) (unknown) * Hasn't used (units ( unknown) date) hydroxyzine since unknown) babies were born. (unknown) (no (unknown) (unknown) * Hydroxyzine - (units (unknown) date) makes very sleepy. unknown) Wanting something to help more with anxiety, (unknown) (no (unknown) (unknown) * In November, soon (units (unknown) date) after the twins unknown) were born and while the patient and her (unknown) (no (unknown) (unknown) * June 2021 - (units (unknown) date) citalopram 10 mg unknown) daily. Reports that her anxiety and (unknown) (no (unknown) (unknown) * Patient has (units ( unknown) date) been participating unknown) in [facility] since July 2022. (unknown) (no (unknown) (unknown) * Patient is (units (un known) date) getting out more unknown) with the kids since the weather has improved. She (unknown) (no (unknown) (unknown) * Patient is (units (u nknown) date) having a lot of unknown) negative automatic thoughts around this situation, (unknown) (no (unknown) (unknown) * Patient said (units ( unknown) date) that she read the unknown) police report in that was not accurate (unknown) (no (unknown) (unknown) * Patient says (units ( unknown) date) that she forgets unknown) to eat sometimes, encouraged patient to eat when (unknown) (no (unknown) (unknown) * Patient says (units (unknown) date) that they were so unknown) exhausted at the time that this happened from (unknown) (no (unknown) (unknown) * Patient shares (units (unknown) date) that she recently unknown) has had elevated anxiety. (unknown) (no (unknown) (unknown) * Sertraline -? (units (unknown) date) made her feel unknown) worse, similar to how she felt with citalopram. (unknown) (no (unknown) (unknown) * Since this (units (u nknown) date) event, patient has unknown) been worrying about her children being taken (unknown) (no (unknown) (unknown) * Started (units (unkn own) date) escitalopram 3 unknown) days ago (unknown) (no (unknown) (unknown) * Tegretol - 2016 (units (unknown) date) - 2017 after unknown) diagnosis of bipolar disorder. Stopped when she (unknown) (no (unknown) (unknown) * Took something (units (unknown) date) for anxiety for a unknown) brief time last year, it worked, but unsure (unknown) (no (unknown) (unknown) * Twins born (units (u nknown) date) October 25, 2021. unknown) (Georgiana + Devin Gibson) (unknown) (no (unknown) (unknown) * Will have (units (un known) date) weight reduction unknown) surgery on 02/10/22. Prior to this, will need to (unknown) (no (unknown) (unknown) * Will start (units (u nknown) date) escitalopram after unknown) babies born,. (unknown) (no (unknown) (unknown) * With spouse for (units (unknown) date) 5 years and unknown) for 3. (unknown) (no (unknown) (unknown) * hydroxyzine - (units (unknown) date) 1-2 times per day unknown) - feels it helps because it 'knocks me out.' (unknown) (no (unknown) (unknown) - Consider (units (unk nown) date) alternatives to unknown) hydroxyzine to use as needed for anxiety; in (unknown) (no (unknown) (unknown) - Escitalopram: (units (unknown) date) can try increase unknown) to 20mg with close monitoring for activation (unknown) (no (unknown) (unknown) - Escitalopram: (units (unknown) date) if trying as unknown) prescribed, monitor closely for any worsening mood (unknown) (no (unknown) (unknown) - Recommend close (units (unknown) date) monitoring during unknown) period given h/o severe (unknown) (no (unknown) (unknown) (units (unknown) date) unknown) (unknown) (no (unknown) (unknown) (units (unknown) date) unknown) (unknown) (no (unknown) (unknown) (units (unknown) date) unknown) (unknown) (no (unknown) (unknown) (units (unknown) date) unknown) (unknown) (no (unknown) (unknown) (units (unknown) date) unknown) ------- (unknown) (no (unknown) (unknown) 008 (units (unkno wn) date) unknown) (unknown) (no (unknown) (unknown) 01/30/22 (units (unkno wn) date) unknown) (unknown) (no (unknown) (unknown) 08/07/21 (units (unkno wn) date) unknown) (unknown) (no (unknown) (unknown) 08/07/21 - (units (unk nown) date) Provided patient unknown) with Support Warm Line and Motherhood (unknown) (no (unknown) (unknown) 08/07/21 14 17 (units (unknown) date) unknown) (unknown) (no (unknown) (unknown) 10/09/21 - (units (unknown) date) Zaid'george unknown) RECOMMENDATIONS for Dr. Brown +. Dr. Gilliam: (unknown) (no (unknown) (unknown) 09/19/21 - (units (u nknown) date) Tawana - unknown) (unknown) (no (unknown) (unknown) 25 year old female (units (unknown) date) participating in unknown) BHIP for symptoms of anxiety and depression. (unknown) (no (unknown) (unknown) 10/15/21 - (units (unkno wn) date) unknown) (unknown) (no (unknown) (unknown) 10/15/21 11 17 (units (u nknown) date) unknown) (unknown) (no (unknown) (unknown) 10/31/21 - (units (unkn own) date) unknown) (unknown) (no (unknown) (unknown) 10/31/21 13 12 (units ( unknown) date) unknown) (unknown) (no (unknown) (unknown) 12/09/21 Kevin 8 X (units (unknown) date) unknown) (unknown) (no (unknown) (unknown) 01/16/22 - (units (unkno wn) date) unknown) (unknown) (no (unknown) (unknown) 01/16/22 9 10 (units (un known) date) unknown) (unknown) (no (unknown) (unknown) 01/20/22 - (units (un known) date) [facility]IP unknown) RECOMMENDATIONS + TREATMENT PLAN RECOMMENDATIONS for (unknown) (no (unknown) (unknown) 60 minutes (units (unk nown) date) unknown) (unknown) (no (unknown) (unknown) Age/Sex: 26 / F (units (unknown) date) Date of Service: unknown) (unknown) (no (unknown) (unknown) All participants (units (unknown) date) + their role: unknown) (Providers,Parent, Spouse,etc): (unknown) (no (unknown) (unknown) Attending Dr: (units ( unknown) date) Sandy GROSS unknown) (unknown) (no (unknown) (unknown) BHIP Assessment + (units (unknown) date) Plan unknown) (unknown) (no (unknown) (unknown) BHIP Commercial Door Installer (units (unknown) date) Follow-Up unknown) (unknown) (no (unknown) (unknown) BHIP Goal #1: (units ( unknown) date) Medication unknown) management (unknown) (no (unknown) (unknown) BHIP Goal #2: (units ( unknown) date) Support around new unknown) babies. (unknown) (no (unknown) (unknown) BHIP Goal (units (unkn own) date) Progress#1: 5 (See unknown) medication section.) (unknown) (no (unknown) (unknown) BHIP Goal (units (unkn own) date) Progress#2: 4 unknown) (unknown) (no (unknown) (unknown) Case Formulation (units (unknown) date) unknown) (unknown) (no (unknown) (unknown) Cognitive (units (unkn own) date) Behavioral unknown) Therapy, Motivational Interviewing and Mindfulness (unknown) (no (unknown) (unknown) : 1995 (units (unknown) date) Acct:[id number] unknown) (unknown) (no (unknown) (unknown) Dept at (units (unkno wn) date) . unknown) (unknown) (no (unknown) (unknown) Discharge Plan: (units (unknown) date) February 2022? unknown) (unknown) (no (unknown) (unknown) Documented By: (units (unknown) date) Sandy Juan unknown) 01/30/22 0842 (unknown) (no (unknown) (unknown) Family:: (units (unkno wn) date) unknown) (unknown) (no (unknown) (unknown) Goals + Progress (units (unknown) date) unknown) (unknown) (no (unknown) (unknown) Interventions (units ( unknown) date) unknown) (unknown) (no (unknown) (unknown) Loc: [facility] (units (unkno wn) date) unknown) (unknown) (no (unknown) (unknown) Location of (units (un known) date) patient:: Home unknown) (unknown) (no (unknown) (unknown) Location of (units (un known) date) provider:: [facility] unknown) (unknown) (no (unknown) (unknown) Medication Update (units (unknown) date) unknown) (unknown) (no (unknown) (unknown) Other (units (unkno wn) date) unknown) (unknown) (no (unknown) (unknown) Other/Additional (units (unknown) date) Details:: unknown) (unknown) (no (unknown) (unknown) PCP Dr. Gilliam: (units (unknown) date) unknown) (unknown) (no (unknown) (unknown) Past: (units (unkno wn) date) unknown) (unknown) (no (unknown) (unknown) Patient consented (units (unknown) date) to receive unknown) services via telehealth?: Yes (unknown) (no (unknown) (unknown) Patient was (units (un known) date) diagnosed in 2016 unknown) with bipolar disorder. Patient is with (unknown) (no (unknown) (unknown) Patient: (units (unkno wn) date) Zev Bryant R unknown) MR#: [id number] (unknown) (no (unknown) (unknown) Presenting (units (unk nown) date) Problem Update unknown) (unknown) (no (unknown) (unknown) Previous session: (units (unknown) date) unknown) (unknown) (no (unknown) (unknown) Protective (units (unk nown) date) Factors: Spouse of unknown) 4 years, 2 daughters (unknown) (no (unknown) (unknown) Real-time,sychron (units (unknown) date) ous services were unknown) performed via:: [facility]See (unknown) (no (unknown) (unknown) Signed By: (units (unk nown) date) unknown) (unknown) (no (unknown) (unknown) Sandy Juan, (units (unknown) date) RECORD CHANGER ASSEMBLER, HOUSEKEEPER AND LAUNDRY ASSISTANT unknown) (unknown) (no (unknown) (unknown) TeleHealth (units (unk nown) date) unknown) (unknown) (no (unknown) (unknown) This note may (units ( unknown) date) have been all or unknown) partially generated using voice recognition (unknown) (no (unknown) (unknown) Time Spent (units (unk nown) date) unknown) (unknown) (no (unknown) (unknown) Time Spent: (units (un known) date) unknown) (unknown) (no (unknown) (unknown) Understood (units (unk nown) date) information. unknown) (unknown) (no (unknown) (unknown) Were services (units ( unknown) date) performed via unknown) telephone only?: No (unknown) (no (unknown) (unknown) appropriateness (units (unknown) date) of that program unknown) vs. other options. (unknown) (no (unknown) (unknown) as long as no (units ( unknown) date) adverse effects unknown) seen in baby after starting (unknown) (no (unknown) (unknown) , (units (unknown) date) low + sporadic use unknown) of gabapentin or lorazepam is typically safe (unknown) (no (unknown) (unknown) escitalopram (units (u nknown) date) oxalate 10 mg unknown) tablet (Lexapro) 10 mg PO DAILY (unknown) (no (unknown) (unknown) have occurred. (units (unknown) date) If there are any unknown) questions, please contact the Medical Records (unknown) (no (unknown) (unknown) hoping to get (units ( unknown) date) assistance with unknown) medication for her anxiety. (unknown) (no (unknown) (unknown) including SI (units (u nknown) date) unknown) (unknown) (no (unknown) (unknown) may occur. (units (unk nown) date) Occasional unknown) wrong-word or 'sound-alike' substitutions may have (unknown) (no (unknown) (unknown) occurred due to (units (unknown) date) the inherent unknown) limitations of voice recognition software. Please (unknown) (no (unknown) (unknown) please have your (units (unknown) date) team call to unknown) schedule (unknown) (no (unknown) (unknown) (units (unk nown) date) depression. , unknown) Zaid to discuss with [facility] team to assess (unknown) (no (unknown) (unknown) read the note (units ( unknown) date) carefully and unknown) recognize, using context, where these substitutions (unknown) (no (unknown) (unknown) software. (units (unkn own) date) Although every unknown) effort is made to edit content, foster care case manager errors (unknown) (no (unknown) (unknown) twins and due in (units (unknown) date) October 2021. Has a unknown) history of depression. Patient is Result panel 16 (unknown) (no (unknown) (unknown) (no value) (units (unk nown) date) unknown) (unknown) (no (unknown) (unknown) Status: Acute (units ( unknown) date) unknown) (unknown) (no (unknown) (unknown) Status: Suspected (units (unknown) date) unknown) (unknown) (no (unknown) (unknown) (no value) (units (unk nown) date) unknown) (unknown) (no (unknown) (unknown) MASON Young (units ( unknown) date) [address] unknown) (unknown) (no (unknown) (unknown) Care Management (units (unknown) date) Visit unknown) (unknown) (no (unknown) (unknown) Date EPDS GAD7 (units (unknown) date) unknown) (unknown) (no (unknown) (unknown) Date PHQ9 GAD7 (units (unknown) date) unknown) (unknown) (no (unknown) (unknown) Draft (units (unkno wn) date) unknown) (unknown) (no (unknown) (unknown) [facility]) (unknown) (no (unknown) (unknown) (no value) (units (unk nown) date) unknown) (unknown) (no (unknown) (unknown) Also has a (units (unk nown) date) previous diagnosis unknown) of bipolar disorder. (unknown) (no (unknown) (unknown) accuracy of them. (units (unknown) date) unknown) (unknown) (no (unknown) (unknown) after delivery (units (unknown) date) once she stopped unknown) breast feeding, but only toook for about 1-2 (unknown) (no (unknown) (unknown) and has been (units (u nknown) date) thinking about it unknown) daily. Spouse seems to be doing fine. (unknown) (no (unknown) (unknown) and she is trying (units (unknown) date) to have this unknown) addressed. Three ports stated that the ch (unknown) (no (unknown) (unknown) another apparatus (units (unknown) date) on the door that unknown) prevents the children from opening them. (unknown) (no (unknown) (unknown) away by Child (units ( unknown) date) Protective unknown) Services (CPS). CPS interviewed them and have closed (unknown) (no (unknown) (unknown) but doesn't want (units (unknown) date) to feel too unknown) sleepy. (unknown) (no (unknown) (unknown) depression was 10 (units (unknown) date) times worse than unknown) it was before. [place] very fatigued, with (unknown) (no (unknown) (unknown) finds that she (units (unknown) date) and the children unknown) have better days when they get to spend time (unknown) (no (unknown) (unknown) found them and (units (unknown) date) [place] the unknown[place]. [place] (unknown) (no (unknown) (unknown) have only 1000 (units (unknown) date) calories per day, unknown) for 2 weeks. Patient is excited about the (unknown) (no (unknown) (unknown) having (units (unknown) date) twins. unknown) (unknown) (no (unknown) (unknown) house with their (units (unknown) date) guns pulled. unknown) Children were fine and had walked as far as the (unknown) (no (unknown) (unknown) ildren were half (units (unknown) date) a mile away from unknown) home. (unknown) (no (unknown) (unknown) months. States (units (unknown) date) that this is the unknown) only medication that has helped her. (unknown) (no (unknown) (unknown) more easily (units (un known) date) irritated unknown) (unknown) (no (unknown) (unknown) neighbor's yard. (units (unknown) date) unknown) (unknown) (no (unknown) (unknown) outside at the (units (unknown) date) park. unknown) (unknown) (no (unknown) (unknown) racing heart and (units (unknown) date) a panicky feeling unknown) all day. Lashing out at significant other, (unknown) (no (unknown) (unknown) says that they (units (unknown) date) woke up to the unknown) police and [employer] in their (unknown) (no (unknown) (unknown) she feeds her (units ( unknown) date) children their unknown) meals. (unknown) (no (unknown) (unknown) surgery. (units (unkno wn) date) unknown) (unknown) (no (unknown) (unknown) the case. (units (unkn own) date) Patient and spouse unknown) have installed alarms on the doors. And put (unknown) (no (unknown) (unknown) was and (units (unknown) date) switched to unknown) sertraline. Put back on tegretol about 5-6 mo (unknown) (no (unknown) (unknown) were sleeping, (units (unknown) date) their other 2 unknown) children got out of the house. The neighbors (unknown) (no (unknown) (unknown) what it was. (units (u nknown) date) unknown) (unknown) (no (unknown) (unknown) * 25 year old (units ( unknown) date) female referred to unknown) [facility] by Dr. Brown for anxiety and depression. (unknown) (no (unknown) (unknown) # Needs follow-up (units (unknown) date) visit for [facility] unknown) monitoring now that past period; (unknown) (no (unknown) (unknown) (1) Anxiety and (units (unknown) date) depression: unknown) (unknown) (no (unknown) (unknown) (2) Bipolar 2 (units ( unknown) date) disorder: unknown) (unknown) (no (unknown) (unknown) * (units (unkno wn) date) unknown) (unknown) (no (unknown) (unknown) * 2 daughters (units ( unknown) date) ages 3 + 4. unknown) (unknown) (no (unknown) (unknown) * 01/16/22 - (units (unk nown) date) Emailed and mailed unknown) via [facility] Wor[facility] Worksheet. (unknown) (no (unknown) (unknown) * Also encouraged (units (unknown) date) her to explore unknown) breathing apps for her phone. (unknown) (no (unknown) (unknown) * Denies feeling (units (unknown) date) symptoms of unknown) depression at this time. (unknown) (no (unknown) (unknown) * Discussed (units (un known) date) grounding unknown) techniques, and provided patient with worksheet. (unknown) (no (unknown) (unknown) * Encouraged (units (u nknown) date) patient to write unknown) down her worries and fear and challenge the (unknown) (no (unknown) (unknown) * Escitalopram 10 (units (unknown) date) mg. unknown) (unknown) (no (unknown) (unknown) * Hasn't used (units ( unknown) date) hydroxyzine since unknown) babies were born. (unknown) (no (unknown) (unknown) * Hydroxyzine - (units (unknown) date) makes very sleepy. unknown) Wanting something to help more with anxiety, (unknown) (no (unknown) (unknown) * In November, soon (units (unknown) date) after the twins unknown) were born and while the patient and her (unknown) (no (unknown) (unknown) * June 2021 - (units (unknown) date) citalopram 10 mg unknown) daily. Reports that her anxiety and (unknown) (no (unknown) (unknown) * Patient has (units ( unknown) date) been participating unknown) in [facility] since July 2022. (unknown) (no (unknown) (unknown) * Patient is (units (un known) date) getting out more unknown) with the kids since the weather has improved. She (unknown) (no (unknown) (unknown) * Patient is (units (u nknown) date) having a lot of unknown) negative automatic thoughts around this situation, (unknown) (no (unknown) (unknown) * Patient said (units ( unknown) date) that she read the unknown) police report in that was not accurate (unknown) (no (unknown) (unknown) * Patient says (units ( unknown) date) that she forgets unknown) to eat sometimes, encouraged patient to eat when (unknown) (no (unknown) (unknown) * Patient says (units (unknown) date) that they were so unknown) exhausted at the time that this happened from (unknown) (no (unknown) (unknown) * Patient shares (units (unknown) date) that she recently unknown) has had elevated anxiety. (unknown) (no (unknown) (unknown) * Sertraline -? (units (unknown) date) made her feel unknown) worse, similar to how she felt with citalopram. (unknown) (no (unknown) (unknown) * Since this (units (u nknown) date) event, patient has unknown) been worrying about her children being taken (unknown) (no (unknown) (unknown) * Started (units (unkn own) date) escitalopram 3 unknown) days ago (unknown) (no (unknown) (unknown) * Tegretol - 2016 (units (unknown) date) - 2017 after unknown) diagnosis of bipolar disorder. Stopped when she (unknown) (no (unknown) (unknown) * Took something (units (unknown) date) for anxiety for a unknown) brief time last year, it worked, but unsure (unknown) (no (unknown) (unknown) * Twins born (units (u nknown) date) October 25, 2021. unknown) (Georgiana + Devin Gibson) (unknown) (no (unknown) (unknown) * Will have (units (un known) date) weight reduction unknown) surgery on 02/10/22. Prior to this, will need to (unknown) (no (unknown) (unknown) * Will start (units (u nknown) date) escitalopram after unknown) babies born,. (unknown) (no (unknown) (unknown) * With spouse for (units (unknown) date) 5 years and unknown) for 3. (unknown) (no (unknown) (unknown) * hydroxyzine - (units (unknown) date) 1-2 times per day unknown) - feels it helps because it 'knocks me out.' (unknown) (no (unknown) (unknown) - Consider (units (unk nown) date) alternatives to unknown) hydroxyzine to use as needed for anxiety; in (unknown) (no (unknown) (unknown) - Escitalopram: (units (unknown) date) can try increase unknown) to 20mg with close monitoring for activation (unknown) (no (unknown) (unknown) - Escitalopram: (units (unknown) date) if trying as unknown) prescribed, monitor closely for any worsening mood (unknown) (no (unknown) (unknown) - Recommend close (units (unknown) date) monitoring during unknown) period given h/o severe (unknown) (no (unknown) (unknown) (units (unknown) date) unknown) (unknown) (no (unknown) (unknown) (units (unknown) date) unknown) (unknown) (no (unknown) (unknown) (units (unknown) date) unknown) (unknown) (no (unknown) (unknown) (units (unknown) date) unknown) (unknown) (no (unknown) (unknown) (units (unknown) date) unknown) ------- (unknown) (no (unknown) (unknown) 0081 (units (unkno wn) date) unknown) (unknown) (no (unknown) (unknown) 01/30/22 (units (unkno wn) date) unknown) (unknown) (no (unknown) (unknown) 08/07/21 (units (unkno wn) date) unknown) (unknown) (no (unknown) (unknown) 08/07/21 - (units (unk nown) date) Provided patient unknown) with Support Warm Line and Motherhood (unknown) (no (unknown) (unknown) 08/07/21 14 17 (units (unknown) date) unknown) (unknown) (no (unknown) (unknown) 10/09/21 - (units (unknown) date) Zaid'george unknown) RECOMMENDATIONS for Dr. Brown +. Dr. Gilliam: (unknown) (no (unknown) (unknown) 09/19/21 - (units (u nknown) date) Tawana - unknown) (unknown) (no (unknown) (unknown) 25 year old female (units (unknown) date) participating in unknown) [facility] for symptoms of anxiety and depression. (unknown) (no (unknown) (unknown) 10/15/21 - (units (unkno wn) date) unknown) (unknown) (no (unknown) (unknown) 10/15/21 11 17 (units (u nknown) date) unknown) (unknown) (no (unknown) (unknown) 10/31/21 - (units (unkn own) date) unknown) (unknown) (no (unknown) (unknown) 10/31/21 13 12 (units ( unknown) date) unknown) (unknown) (no (unknown) (unknown) 12/09/21 Kevin 8 X (units (unknown) date) unknown) (unknown) (no (unknown) (unknown) 01/16/22 - (units (unkno wn) date) unknown) (unknown) (no (unknown) (unknown) 01/16/22 9 10 (units (un known) date) unknown) (unknown) (no (unknown) (unknown) 01/20/22 - (units (un known) date) [facility] unknown) RECOMMENDATIONS + TREATMENT PLAN RECOMMENDATIONS for (unknown) (no (unknown) (unknown) 60 minutes (units (unk nown) date) unknown) (unknown) (no (unknown) (unknown) Age/Sex: 26 / F (units (unknown) date) Date of Service: unknown) (unknown) (no (unknown) (unknown) All participants (units (unknown) date) + their role: unknown) (Providers,Parent, Spouse,etc): (unknown) (no (unknown) (unknown) Attending Dr: (units ( unknown) date) Sandy Juan [facility] unknown) (unknown) (no (unknown) (unknown) BHIP Assessment + (units (unknown) date) Plan unknown) (unknown) (no (unknown) (unknown) BHIP Commercial Door Installer (units (unknown) date) Follow-Up unknown) (unknown) (no (unknown) (unknown) BHIP Goal #1: (units ( unknown) date) Medication unknown) management (unknown) (no (unknown) (unknown) BHIP Goal #2: (units ( unknown) date) Support around new unknown) babies. (unknown) (no (unknown) (unknown) BHIP Goal (units (unkn own) date) Progress#1: 5 (See unknown) medication section.) (unknown) (no (unknown) (unknown) BHIP Goal (units (unkn own) date) Progress#2: 4 unknown) (unknown) (no (unknown) (unknown) Case Formulation (units (unknown) date) unknown) (unknown) (no (unknown) (unknown) Cognitive (units (unkn own) date) Behavioral unknown) Therapy, Motivational Interviewing and Mindfulness (unknown) (no (unknown) (unknown) : 1995 (units (unknown) date) Acct:[id number] unknown) (unknown) (no (unknown) (unknown) Dept at (units (unkno wn) date) . unknown) (unknown) (no (unknown) (unknown) Discharge Plan: (units (unknown) date) February 2022 unknown) (unknown) (no (unknown) (unknown) Documented By: (units (unknown) date) Sandy Juan unknown) 01/30/22 0842 (unknown) (no (unknown) (unknown) Family:: (units (unkno wn) date) unknown) (unknown) (no (unknown) (unknown) Goals + Progress (units (unknown) date) unknown) (unknown) (no (unknown) (unknown) Interventions (units ( unknown) date) unknown) (unknown) (no (unknown) (unknown) Loc: [facility] (units (unkno wn) date) unknown) (unknown) (no (unknown) (unknown) Location of (units (un known) date) patient:: Home unknown) (unknown) (no (unknown) (unknown) Location of (units (un known) date) provider:: [facility] unknown) (unknown) (no (unknown) (unknown) Medication Update (units (unknown) date) unknown) (unknown) (no (unknown) (unknown) Other (units (unkno wn) date) unknown) (unknown) (no (unknown) (unknown) Other/Additional (units (unknown) date) Details:: unknown) (unknown) (no (unknown) (unknown) PCP Dr. Gilliam: (units (unknown) date) unknown) (unknown) (no (unknown) (unknown) Past: (units (unkno wn) date) unknown) (unknown) (no (unknown) (unknown) Patient consented (units (unknown) date) to receive unknown) services via telehealth?: Yes (unknown) (no (unknown) (unknown) Patient was (units (un known) date) diagnosed in 2016 unknown) with bipolar disorder. Patient is with (unknown) (no (unknown) (unknown) Patient: (units (unkno wn) date) Zev Bryant R unknown) MR#: [id number] (unknown) (no (unknown) (unknown) Presenting (units (unk nown) date) Problem Update unknown) (unknown) (no (unknown) (unknown) Previous session: (units (unknown) date) unknown) (unknown) (no (unknown) (unknown) Protective (units (unk nown) date) Factors: Spouse of unknown) 4 years, 2 daughters (unknown) (no (unknown) (unknown) Real-time,sychron (units (unknown) date) ous services were unknown) performed via:: VSee (unknown) (no (unknown) (unknown) Signed By: (units (unk nown) date) unknown) (unknown) (no (unknown) (unknown) Sandy Juan, (units (unknown) date) RECORD CHANGER ASSEMBLER, HOUSEKEEPER AND LAUNDRY ASSISTANT unknown) (unknown) (no (unknown) (unknown) TeleHealth (units (unk nown) date) unknown) (unknown) (no (unknown) (unknown) This note may (units ( unknown) date) have been all or unknown) partially generated using voice recognition (unknown) (no (unknown) (unknown) Time Spent (units (unk nown) date) unknown) (unknown) (no (unknown) (unknown) Time Spent: (units (un known) date) unknown) (unknown) (no (unknown) (unknown) Understood (units (unk nown) date) information. unknown) (unknown) (no (unknown) (unknown) Were services (units ( unknown) date) performed via unknown) telephone only?: No (unknown) (no (unknown) (unknown) appropriateness (units (unknown) date) of that program unknown) vs. other options. (unknown) (no (unknown) (unknown) as long as no (units ( unknown) date) adverse effects unknown) seen in baby after starting (unknown) (no (unknown) (unknown) , (units (unknown) date) low + sporadic use unknown) of gabapentin or lorazepam is typically safe (unknown) (no (unknown) (unknown) escitalopram (units (u nknown) date) oxalate 10 mg unknown) tablet (Lexapro) 10 mg PO DAILY (unknown) (no (unknown) (unknown) have occurred. (units (unknown) date) If there are any unknown) questions, please contact the Medical Records (unknown) (no (unknown) (unknown) hoping to get (units ( unknown) date) assistance with unknown) medication for her anxiety. (unknown) (no (unknown) (unknown) including SI (units (u nknown) date) unknown) (unknown) (no (unknown) (unknown) may occur. (units (unk nown) date) Occasional unknown) wrong-word or 'sound-alike' substitutions may have (unknown) (no (unknown) (unknown) occurred due to (units (unknown) date) the inherent unknown) limitations of voice recognition software. Please (unknown) (no (unknown) (unknown) please have your (units (unknown) date) team call to unknown) schedule (unknown) (no (unknown) (unknown) (units (unk nown) date) depression. , unknown) Mar to discuss with [facility] team to assess (unknown) (no (unknown) (unknown) read the note (units ( unknown) date) carefully and unknown) recognize, using context, where these substitutions (unknown) (no (unknown) (unknown) software. (units (unkn own) date) Although every unknown) effort is made to edit content, foster care case manager errors (unknown) (no (unknown) (unknown) twins and due in (units (unknown) date) October 2021. Has a unknown) history of depression. Patient is Result panel 17 (unknown) (no (unknown) (unknown) (no value) (units (unk nown) date) unknown) (unknown) (no (unknown) (unknown) Status: Acute (units ( unknown) date) unknown) (unknown) (no (unknown) (unknown) Status: Suspected (units (unknown) date) unknown) (unknown) (no (unknown) (unknown) (no value) (units (unk nown) date) unknown) (unknown) (no (unknown) (unknown) [place], [place] (units ( unknown) date) [id number] unknown) (unknown) (no (unknown) (unknown) Care Management (units (unknown) date) Visit unknown) (unknown) (no (unknown) (unknown) Date EPDS GAD7 (units (unknown) date) unknown) (unknown) (no (unknown) (unknown) Date PHQ9 GAD7 (units (unknown) date) unknown) (unknown) (no (unknown) (unknown) Draft (units (unkno wn) date) unknown) (unknown) (no (unknown) (unknown) [facility]) (unknown) (no (unknown) (unknown) (no value) (units (unk nown) date) unknown) (unknown) (no (unknown) (unknown) Also has a (units (unk nown) date) previous diagnosis unknown) of bipolar disorder. (unknown) (no (unknown) (unknown) accuracy of them. (units (unknown) date) unknown) (unknown) (no (unknown) (unknown) after delivery (units (unknown) date) once she stopped unknown) breast feeding, but only toook for about 1-2 (unknown) (no (unknown) (unknown) and has been (units (u nknown) date) thinking about it unknown) daily. Spouse seems to be doing fine. (unknown) (no (unknown) (unknown) and she is trying (units (unknown) date) to have this unknown) addressed. Three ports stated that the ch (unknown) (no (unknown) (unknown) another apparatus (units (unknown) date) on the door that unknown) prevents the children from opening them. (unknown) (no (unknown) (unknown) away by Child (units ( unknown) date) Protective unknown) Services (CPS). CPS interviewed them and have closed (unknown) (no (unknown) (unknown) but doesn't want (units (unknown) date) to feel too unknown) sleepy. (unknown) (no (unknown) (unknown) depression was 10 (units (unknown) date) times worse than unknown) it was before. [place] very fatigued, with (unknown) (no (unknown) (unknown) finds that she (units (unknown) date) and the children unknown) have better days when they get to spend time (unknown) (no (unknown) (unknown) found them and (units (unknown) date) [place] the unknown[place]. [place] (unknown) (no (unknown) (unknown) have only 1000 (units (unknown) date) calories per day, unknown) for 2 weeks. Patient is excited about the (unknown) (no (unknown) (unknown) having (units (unknown) date) twins. unknown) (unknown) (no (unknown) (unknown) house with their (units (unknown) date) guns pulled. unknown) Children were fine and had walked as far as the (unknown) (no (unknown) (unknown) ildren were half (units (unknown) date) a mile away from unknown) home. (unknown) (no (unknown) (unknown) months. States (units (unknown) date) that this is the unknown) only medication that has helped her. (unknown) (no (unknown) (unknown) more easily (units (un known) date) irritated unknown) (unknown) (no (unknown) (unknown) neighbor's yard. (units (unknown) date) unknown) (unknown) (no (unknown) (unknown) outside at the (units (unknown) date) park. unknown) (unknown) (no (unknown) (unknown) racing heart and (units (unknown) date) a panicky feeling unknown) all day. Lashing out at significant other, (unknown) (no (unknown) (unknown) says that they (units (unknown) date) woke up to the unknown) police and [employer] Police in their (unknown) (no (unknown) (unknown) she feeds her (units ( unknown) date) children their unknown) meals. (unknown) (no (unknown) (unknown) surgery. (units (unkno wn) date) unknown) (unknown) (no (unknown) (unknown) the case. (units (unkn own) date) Patient and spouse unknown) have installed alarms on the doors. And put (unknown) (no (unknown) (unknown) was and (units (unknown) date) switched to unknown) sertraline. Put back on tegretol about 5-6 mo (unknown) (no (unknown) (unknown) were sleeping, (units (unknown) date) their other 2 unknown) children got out of the house. The neighbors (unknown) (no (unknown) (unknown) what it was. (units (u nknown) date) unknown) (unknown) (no (unknown) (unknown) * 25 year old (units ( unknown) date) female referred to unknown) [facility] by Dr. Brown for anxiety and depression. (unknown) (no (unknown) (unknown) # Needs follow-up (units (unknown) date) visit for IP unknown) monitoring now that past period; (unknown) (no (unknown) (unknown) (1) Anxiety and (units (unknown) date) depression: unknown) (unknown) (no (unknown) (unknown) (2) Bipolar 2 (units ( unknown) date) disorder: unknown) (unknown) (no (unknown) (unknown) * (units (unkno wn) date) unknown) (unknown) (no (unknown) (unknown) * 2 daughters (units ( unknown) date) ages 3 + 4. unknown) (unknown) (no (unknown) (unknown) * 01/16/22 - (units (unk nown) date) Emailed and mailed unknown) via [facility] Worries Worksheet. (unknown) (no (unknown) (unknown) * Also encouraged (units (unknown) date) her to explore unknown) breathing apps for her phone. (unknown) (no (unknown) (unknown) * Denies feeling (units (unknown) date) symptoms of unknown) depression at this time. (unknown) (no (unknown) (unknown) * Discussed (units (un known) date) grounding unknown) techniques, and provided patient with worksheet. (unknown) (no (unknown) (unknown) * Encouraged (units (u nknown) date) patient to write unknown) down her worries and fear and challenge the (unknown) (no (unknown) (unknown) * Escitalopram 10 (units (unknown) date) mg. unknown) (unknown) (no (unknown) (unknown) * Hasn't used (units ( unknown) date) hydroxyzine since unknown) babies were born. (unknown) (no (unknown) (unknown) * Hydroxyzine - (units (unknown) date) makes very sleepy. unknown) Wanting something to help more with anxiety, (unknown) (no (unknown) (unknown) * In November, soon (units (unknown) date) after the twins unknown) were born and while the patient and her (unknown) (no (unknown) (unknown) * June 2021 - (units (unknown) date) citalopram 10 mg unknown) daily. Reports that her anxiety and (unknown) (no (unknown) (unknown) * Patient has (units ( unknown) date) been participating unknown) in [facility] since July 2022. (unknown) (no (unknown) (unknown) * Patient is (units (un known) date) getting out more unknown) with the kids since the weather has improved. She (unknown) (no (unknown) (unknown) * Patient is (units (u nknown) date) having a lot of unknown) negative automatic thoughts around this situation, (unknown) (no (unknown) (unknown) * Patient said (units ( unknown) date) that she read the unknown) police report in that was not accurate (unknown) (no (unknown) (unknown) * Patient says (units ( unknown) date) that she forgets unknown) to eat sometimes, encouraged patient to eat when (unknown) (no (unknown) (unknown) * Patient says (units (unknown) date) that they were so unknown) exhausted at the time that this happened from (unknown) (no (unknown) (unknown) * Patient shares (units (unknown) date) that she recently unknown) has had elevated anxiety. (unknown) (no (unknown) (unknown) * Sertraline -? (units (unknown) date) made her feel unknown) worse, similar to how she felt with citalopram. (unknown) (no (unknown) (unknown) * Since this (units (u nknown) date) event, patient has unknown) been worrying about her children being taken (unknown) (no (unknown) (unknown) * Started (units (unkn own) date) escitalopram 3 unknown) days ago (unknown) (no (unknown) (unknown) * Tegretol - 2016 (units (unknown) date) - 2017 after unknown) diagnosis of bipolar disorder. Stopped when she (unknown) (no (unknown) (unknown) * Took something (units (unknown) date) for anxiety for a unknown) brief time last year, it worked, but unsure (unknown) (no (unknown) (unknown) * Twins born (units (u nknown) date) October 25, 2021. unknown) (Georgiana + Devin Calixto.) (unknown) (no (unknown) (unknown) * Will have (units (un known) date) weight reduction unknown) surgery on 02/10/22. Prior to this, will need to (unknown) (no (unknown) (unknown) * Will start (units (u nknown) date) escitalopram after unknown) babies born,. (unknown) (no (unknown) (unknown) * With spouse for (units (unknown) date) 5 years and unknown) for 3. (unknown) (no (unknown) (unknown) * hydroxyzine - (units (unknown) date) 1-2 times per day unknown) - feels it helps because it 'knocks me out.' (unknown) (no (unknown) (unknown) - Consider (units (unk nown) date) alternatives to unknown) hydroxyzine to use as needed for anxiety; in (unknown) (no (unknown) (unknown) - Escitalopram: (units (unknown) date) can try increase unknown) to 20mg with close monitoring for activation (unknown) (no (unknown) (unknown) - Escitalopram: (units (unknown) date) if trying as unknown) prescribed, monitor closely for any worsening mood (unknown) (no (unknown) (unknown) - Recommend close (units (unknown) date) monitoring during unknown) period given h/o severe (unknown) (no (unknown) (unknown) (units (unknown) date) unknown) (unknown) (no (unknown) (unknown) (units (unknown) date) unknown) (unknown) (no (unknown) (unknown) (units (unknown) date) unknown) (unknown) (no (unknown) (unknown) (units (unknown) date) unknown) (unknown) (no (unknown) (unknown) (units (unknown) date) unknown) ------- (unknown) (no (unknown) (unknown) 008 (units (unkno wn) date) unknown) (unknown) (no (unknown) (unknown) 01/30/22 (units (unkno wn) date) unknown) (unknown) (no (unknown) (unknown) 08/07/21 (units (unkno wn) date) unknown) (unknown) (no (unknown) (unknown) 08/07/21 - (units (unk nown) date) Provided patient unknown) with Support Warm Line and Motherhood (unknown) (no (unknown) (unknown) 08/07/21 14 17 (units (unknown) date) unknown) (unknown) (no (unknown) (unknown) 10/09/21 - (units (unknown) date) Zaid's unknown) RECOMMENDATIONS for Dr. Brown +. Dr. Gilliam: (unknown) (no (unknown) (unknown) 09/19/21 - (units (u nknown) date) Tawana - unknown) (unknown) (no (unknown) (unknown) 25 year old female (units (unknown) date) participating in unknown) [facility] for symptoms of anxiety and depression. (unknown) (no (unknown) (unknown) 10/15/21 - (units (unkno wn) date) unknown) (unknown) (no (unknown) (unknown) 10/15/21 11 17 (units (u nknown) date) unknown) (unknown) (no (unknown) (unknown) 10/31/21 - (units (unkn own) date) unknown) (unknown) (no (unknown) (unknown) 10/31/21 13 12 (units ( unknown) date) unknown) (unknown) (no (unknown) (unknown) 35 minutes (units (unk nown) date) unknown) (unknown) (no (unknown) (unknown) 12/09/21 [place] 8 X (units (unknown) date) unknown) (unknown) (no (unknown) (unknown) 01/16/22 - (units (unkno wn) date) unknown) (unknown) (no (unknown) (unknown) 01/16/22 9 10 (units (un known) date) unknown) (unknown) (no (unknown) (unknown) 01/20/22 - (units (un known) date) [facility] unknown) RECOMMENDATIONS + TREATMENT PLAN RECOMMENDATIONS for (unknown) (no (unknown) (unknown) Age/Sex: 26 / F (units (unknown) date) Date of Service: unknown) (unknown) (no (unknown) (unknown) All participants (units (unknown) date) + their role: unknown) (Providers,Parent, Spouse,etc): (unknown) (no (unknown) (unknown) Attending Dr: (units ( unknown) date) Sandy Juan RECORD CHANGER ASSEMBLER unknown) (unknown) (no (unknown) (unknown) BHIP Assessment + (units (unknown) date) Plan unknown) (unknown) (no (unknown) (unknown) BHIP Commercial Door Installer (units (unknown) date) Follow-Up unknown) (unknown) (no (unknown) (unknown) BHIP Goal #1: (units ( unknown) date) Medication unknown) management (unknown) (no (unknown) (unknown) BHIP Goal #2: (units ( unknown) date) Support around new unknown) babies. (unknown) (no (unknown) (unknown) BHIP Goal (units (unkn own) date) Progress#1: 5 (See unknown) medication section.) (unknown) (no (unknown) (unknown) BHIP Goal (units (unkn own) date) Progress#2: 4 unknown) (unknown) (no (unknown) (unknown) Case Formulation (units (unknown) date) unknown) (unknown) (no (unknown) (unknown) Cognitive (units (unkn own) date) Behavioral unknown) Therapy, Motivational Interviewing and Mindfulness (unknown) (no (unknown) (unknown) : 1995 (units (unknown) date) Acct:[id number] unknown) (unknown) (no (unknown) (unknown) Dept at (units (unkno wn) date) . unknown) (unknown) (no (unknown) (unknown) Discharge Plan: (units (unknown) date) February 2022 unknown) (unknown) (no (unknown) (unknown) Documented By: (units (unknown) date) Sandy Juan unknown) 01/30/22 0842 (unknown) (no (unknown) (unknown) Family:: (units (unkno wn) date) unknown) (unknown) (no (unknown) (unknown) Goals + Progress (units (unknown) date) unknown) (unknown) (no (unknown) (unknown) Interventions (units ( unknown) date) unknown) (unknown) (no (unknown) (unknown) Loc: [facility] (units (unkno wn) date) unknown) (unknown) (no (unknown) (unknown) Location of (units (un known) date) patient:: Home unknown) (unknown) (no (unknown) (unknown) Location of (units (un known) date) provider:: [facility] unknown) (unknown) (no (unknown) (unknown) Medication Update (units (unknown) date) unknown) (unknown) (no (unknown) (unknown) Other (units (unkno wn) date) unknown) (unknown) (no (unknown) (unknown) Other/Additional (units (unknown) date) Details:: unknown) (unknown) (no (unknown) (unknown) PCP Dr. Gilliam: (units (unknown) date) unknown) (unknown) (no (unknown) (unknown) Past: (units (unkno wn) date) unknown) (unknown) (no (unknown) (unknown) Patient consented (units (unknown) date) to receive unknown) services via telehealth?: Yes (unknown) (no (unknown) (unknown) Patient was (units (un known) date) diagnosed in 2015 unknown) with bipolar disorder. Patient is with (unknown) (no (unknown) (unknown) Patient: (units (unkno wn) date) Zev Bryant R unknown) MR#: [id number] (unknown) (no (unknown) (unknown) Presenting (units (unk nown) date) Problem Update unknown) (unknown) (no (unknown) (unknown) Previous session: (units (unknown) date) unknown) (unknown) (no (unknown) (unknown) Protective (units (unk nown) date) Factors: Spouse of unknown) 4 years, 2 daughters (unknown) (no (unknown) (unknown) Real-time,sychron (units (unknown) date) ous services were unknown) performed via:: VSee (unknown) (no (unknown) (unknown) Signed By: (units (unk nown) date) unknown) (unknown) (no (unknown) (unknown) Sandy Juan, (units (unknown) date) RECORD CHANGER ASSEMBLER, HOUSEKEEPER AND LAUNDRY ASSISTANT unknown) (unknown) (no (unknown) (unknown) TeleHealth (units (unk nown) date) unknown) (unknown) (no (unknown) (unknown) This note may (units ( unknown) date) have been all or unknown) partially generated using voice recognition (unknown) (no (unknown) (unknown) Time Spent (units (unk nown) date) unknown) (unknown) (no (unknown) (unknown) Time Spent: (units (un known) date) unknown) (unknown) (no (unknown) (unknown) Understood (units (unk nown) date) information. unknown) (unknown) (no (unknown) (unknown) Were services (units ( unknown) date) performed via unknown) telephone only?: No (unknown) (no (unknown) (unknown) appropriateness (units (unknown) date) of that program unknown) vs. other options. (unknown) (no (unknown) (unknown) as long as no (units ( unknown) date) adverse effects unknown) seen in baby after starting (unknown) (no (unknown) (unknown) , (units (unknown) date) low + sporadic use unknown) of gabapentin or lorazepam is typically safe (unknown) (no (unknown) (unknown) escitalopram (units (u nknown) date) oxalate 10 mg unknown) tablet (Lexapro) 10 mg PO DAILY (unknown) (no (unknown) (unknown) have occurred. (units (unknown) date) If there are any unknown) questions, please contact the Medical Records (unknown) (no (unknown) (unknown) hoping to get (units ( unknown) date) assistance with unknown) medication for her anxiety. (unknown) (no (unknown) (unknown) including SI (units (u nknown) date) unknown) (unknown) (no (unknown) (unknown) may occur. (units (unk nown) date) Occasional unknown) wrong-word or 'sound-alike' substitutions may have (unknown) (no (unknown) (unknown) occurred due to (units (unknown) date) the inherent unknown) limitations of voice recognition software. Please (unknown) (no (unknown) (unknown) please have your (units (unknown) date) team call to unknown) schedule (unknown) (no (unknown) (unknown) (units (unk nown) date) depression. , unknown) Mar to discuss with [facility] team to assess (unknown) (no (unknown) (unknown) read the note (units ( unknown) date) carefully and unknown) recognize, using context, where these substitutions (unknown) (no (unknown) (unknown) software. (units (unkn own) date) Although every unknown) effort is made to edit content, foster care case manager errors (unknown) (no (unknown) (unknown) twins and due in (units (unknown) date) October 2021. Has a unknown) history of depression. Patient is Result panel 18 (unknown) (no (unknown) (unknown) (no value) (units (unk nown) date) unknown) (unknown) (no (unknown) (unknown) Status: Acute (units ( unknown) date) unknown) (unknown) (no (unknown) (unknown) Status: Suspected (units (unknown) date) unknown) (unknown) (no (unknown) (unknown) (no value) (units (unk nown) date) unknown) (unknown) (no (unknown) (unknown) [place] Young (units ( unknown) date) [id number] unknown) (unknown) (no (unknown) (unknown) Care Management (units (unknown) date) Visit unknown) (unknown) (no (unknown) (unknown) Date EPDS GAD7 (units (unknown) date) unknown) (unknown) (no (unknown) (unknown) Date PHQ9 GAD7 (units (unknown) date) unknown) (unknown) (no (unknown) (unknown) Draft (units (unkno wn) date) unknown) (unknown) (no (unknown) (unknown) [facility]) (unknown) (no (unknown) (unknown) (no value) (units (unk nown) date) unknown) (unknown) (no (unknown) (unknown) Also has a (units (unk nown) date) previous diagnosis unknown) of bipolar disorder. (unknown) (no (unknown) (unknown) Has not thought (units (unknown) date) about it for a unknown) while. Spoke wiht [employer] who are doing (unknown) (no (unknown) (unknown) accuracy of them. (units (unknown) date) unknown) (unknown) (no (unknown) (unknown) after delivery (units (unknown) date) once she stopped unknown) breast feeding, but only toook for about 1-2 (unknown) (no (unknown) (unknown) and has been (units (u nknown) date) thinking about it unknown) daily. Spouse seems to be doing fine. (unknown) (no (unknown) (unknown) and she is trying (units (unknown) date) to have this unknown) addressed. Three ports stated that the (unknown) (no (unknown) (unknown) another apparatus (units (unknown) date) on the door that unknown) prevents the children from opening them. (unknown) (no (unknown) (unknown) away by Child (units ( unknown) date) Protective unknown) Services (CPS). CPS interviewed them and have closed (unknown) (no (unknown) (unknown) but doesn't want (units (unknown) date) to feel too unknown) sleepy. (unknown) (no (unknown) (unknown) children were (units ( unknown) date) half a mile away unknown) from home. (unknown) (no (unknown) (unknown) depression was 10 (units (unknown) date) times worse than unknown) it was before. [place] very fatigued, with (unknown) (no (unknown) (unknown) finds that she (units (unknown) date) and the children unknown) have better days when they get to spend time (unknown) (no (unknown) (unknown) found them and (units (unknown) date) [place] the unknown[place]. [place] (unknown) (no (unknown) (unknown) have only 1000 (units (unknown) date) calories per day, unknown) for 2 weeks. Patient is excited about the (unknown) (no (unknown) (unknown) having (units (unknown) date) twins. unknown) (unknown) (no (unknown) (unknown) house with their (units (unknown) date) guns pulled. unknown) Children were fine and had walked as far as the (unknown) (no (unknown) (unknown) monthly check-ins (units (unknown) date) until it is unknown) decided what they need to do. Patient thinks (unknown) (no (unknown) (unknown) months. States (units (unknown) date) that this is the unknown) only medication that has helped her. (unknown) (no (unknown) (unknown) more easily (units (un known) date) irritated unknown) (unknown) (no (unknown) (unknown) neighbor's yard. (units (unknown) date) unknown) (unknown) (no (unknown) (unknown) outside at the (units (unknown) date) park. unknown) (unknown) (no (unknown) (unknown) racing heart and (units (unknown) date) a panicky feeling unknown) all day. Lashing out at significant other, (unknown) (no (unknown) (unknown) says that they (units (unknown) date) woke up to the unknown) police and [employer] Police in their (unknown) (no (unknown) (unknown) she feeds her (units ( unknown) date) children their unknown) meals. (unknown) (no (unknown) (unknown) surgery. (units (unkno wn) date) unknown) (unknown) (no (unknown) (unknown) taht they will (units (unknown) date) need to take a unknown) parenting class. (unknown) (no (unknown) (unknown) take place on (units ( unknown) date) 02/10/22. Was unknown) disappointed to find out that she needs to spend (unknown) (no (unknown) (unknown) the case. (units (unkn own) date) Patient and spouse unknown) have installed alarms on the doors. And put (unknown) (no (unknown) (unknown) the future. (units (un known) date) unknown) (unknown) (no (unknown) (unknown) the night in the (units (unknown) date) hospital. Spouse unknown) will stay in a hotel nearby and (unknown) (no (unknown) (unknown) was and (units (unknown) date) switched to unknown) sertraline. Put back on tegretol about 5-6 mo (unknown) (no (unknown) (unknown) were sleeping, (units (unknown) date) their other 2 unknown) children got out of the house. The neighbors (unknown) (no (unknown) (unknown) what it was. (units (u nknown) date) unknown) (unknown) (no (unknown) (unknown) * 25 year old (units ( unknown) date) female referred to unknown) [facility] by Dr. Brown for anxiety and depression. (unknown) (no (unknown) (unknown) # Needs follow-up (units (unknown) date) visit for [facility] unknown) monitoring now that past period; (unknown) (no (unknown) (unknown) (1) Anxiety and (units (unknown) date) depression: unknown) (unknown) (no (unknown) (unknown) (2) Bipolar 2 (units ( unknown) date) disorder: unknown) (unknown) (no (unknown) (unknown) * (units (unkno wn) date) unknown) (unknown) (no (unknown) (unknown) * 2 daughters (units ( unknown) date) ages 3 + 4. unknown) (unknown) (no (unknown) (unknown) * 01/16/22 - (units (unk nown) date) Emailed and mailed unknown) via [employer] Worries Worksheet. (unknown) (no (unknown) (unknown) * Also encouraged (units (unknown) date) her to explore unknown) breathing apps for her phone. (unknown) (no (unknown) (unknown) * Denies feeling (units (unknown) date) symptoms of unknown) depression at this time. (unknown) (no (unknown) (unknown) * Discussed (units (un known) date) grounding unknown) techniques, and provided patient with worksheet. (unknown) (no (unknown) (unknown) * Encouraged (units (u nknown) date) patient to write unknown) down her worries and fear and challenge the (unknown) (no (unknown) (unknown) * Escitalopram 10 (units (unknown) date) mg. unknown) (unknown) (no (unknown) (unknown) * Family has been (units (unknown) date) busy and patient unknown) continues to feel positive and hopeful about (unknown) (no (unknown) (unknown) * Feelling less (units (unknown) date) anxiety about unknown) recent situaiton with daughter's leaving the home. (unknown) (no (unknown) (unknown) * Hasn't used (units ( unknown) date) hydroxyzine since unknown) babies were born. (unknown) (no (unknown) (unknown) * Hydroxyzine - (units (unknown) date) makes very sleepy. unknown) Wanting something to help more with anxiety, (unknown) (no (unknown) (unknown) * In November, soon (units (unknown) date) after the twins unknown) were born and while the patient and her (unknown) (no (unknown) (unknown) * June 2021 - (units (unknown) date) citalopram 10 mg unknown) daily. Reports that her anxiety and (unknown) (no (unknown) (unknown) * Patient has (units ( unknown) date) been participating unknown) in [facility] since July 2022. (unknown) (no (unknown) (unknown) * Patient is (units (un known) date) getting out more unknown) with the kids since the weather has improved. She (unknown) (no (unknown) (unknown) * Patient is (units (u nknown) date) having a lot of unknown) negative automatic thoughts around this situation, (unknown) (no (unknown) (unknown) * Patient said (units ( unknown) date) that she read the unknown) police report in that was not accurate (unknown) (no (unknown) (unknown) * Patient says (units ( unknown) date) that she forgets unknown) to eat sometimes, encouraged patient to eat when (unknown) (no (unknown) (unknown) * Patient says (units (unknown) date) that they were so unknown) exhausted at the time that this happened from (unknown) (no (unknown) (unknown) * Patient shares (units (unknown) date) that she recently unknown) has had elevated anxiety. (unknown) (no (unknown) (unknown) * Preparing for (units (unknown) date) weight loss unknown) surgery. Has started her limited diet. Surgery will (unknown) (no (unknown) (unknown) * Sertraline -? (units (unknown) date) made her feel unknown) worse, similar to how she felt with citalopram. (unknown) (no (unknown) (unknown) * Since this (units (u nknown) date) event, patient has unknown) been worrying about her children being taken (unknown) (no (unknown) (unknown) * Started (units (unkn own) date) escitalopram 3 unknown) days ago (unknown) (no (unknown) (unknown) * Tegretol - 2016 (units (unknown) date) - 2017 after unknown) diagnosis of bipolar disorder. Stopped when she (unknown) (no (unknown) (unknown) * Today is (units (unk nown) date) patient's final unknown) [facility] appointment. (unknown) (no (unknown) (unknown) * Took something (units (unknown) date) for anxiety for a unknown) brief time last year, it worked, but unsure (unknown) (no (unknown) (unknown) * Twins born (units (u nknown) date) October 25, 2021. unknown) (Georgiana + Devin Gibson) (unknown) (no (unknown) (unknown) * Will have (units (un known) date) weight reduction unknown) surgery on 02/10/22. Prior to this, will need to (unknown) (no (unknown) (unknown) * Will start (units (u nknown) date) escitalopram after unknown) babies born,. (unknown) (no (unknown) (unknown) * With spouse for (units (unknown) date) 5 years and unknown) for 3. (unknown) (no (unknown) (unknown) * hydroxyzine - (units (unknown) date) 1-2 times per day unknown) - feels it helps because it 'knocks me out.' (unknown) (no (unknown) (unknown) - Consider (units (unk nown) date) alternatives to unknown) hydroxyzine to use as needed for anxiety; in (unknown) (no (unknown) (unknown) - Escitalopram: (units (unknown) date) can try increase unknown) to 20mg with close monitoring for activation (unknown) (no (unknown) (unknown) - Escitalopram: (units (unknown) date) if trying as unknown) prescribed, monitor closely for any worsening mood (unknown) (no (unknown) (unknown) - Recommend close (units (unknown) date) monitoring during unknown) period given h/o severe (unknown) (no (unknown) (unknown) (units (unknown) date) unknown) (unknown) (no (unknown) (unknown) (units (unknown) date) unknown) (unknown) (no (unknown) (unknown) (units (unknown) date) unknown) (unknown) (no (unknown) (unknown) (units (unknown) date) unknown) (unknown) (no (unknown) (unknown) (units (unknown) date) unknown) ------- (unknown) (no (unknown) (unknown) [id number] (units (unkno wn) date) unknown) (unknown) (no (unknown) (unknown) 01/30/22 (units (unkno wn) date) unknown) (unknown) (no (unknown) (unknown) 08/07/21 (units (unkno wn) date) unknown) (unknown) (no (unknown) (unknown) 08/07/21 - (units (unk nown) date) Provided patient unknown) with Support Warm Line and Motherhood (unknown) (no (unknown) (unknown) 08/07/21 14 17 (units (unknown) date) unknown) (unknown) (no (unknown) (unknown) 10/09/21 - (units (unknown) date) Zaid'george unknown) RECOMMENDATIONS for Dr. Brown +. Dr. Gilliam: (unknown) (no (unknown) (unknown) 09/19/21 - (units (u nknown) date) Tawana - unknown) (unknown) (no (unknown) (unknown) 25 year old female (units (unknown) date) participating in unknown) [facility] for symptoms of anxiety and depression. (unknown) (no (unknown) (unknown) 10/15/21 - (units (unkno wn) date) unknown) (unknown) (no (unknown) (unknown) 10/15/21 11 17 (units (u nknown) date) unknown) (unknown) (no (unknown) (unknown) 10/31/21 - (units (unkn own) date) unknown) (unknown) (no (unknown) (unknown) 10/31/21 13 12 (units ( unknown) date) unknown) (unknown) (no (unknown) (unknown) 35 minutes (units (unk nown) date) unknown) (unknown) (no (unknown) (unknown) 12/09/21 Kevin 8 X (units (unknown) date) unknown) (unknown) (no (unknown) (unknown) 01/16/22 - (units (unkno wn) date) unknown) (unknown) (no (unknown) (unknown) 01/16/22 9 10 (units (un known) date) unknown) (unknown) (no (unknown) (unknown) 01/20/22 - (units (un known) date) Zaid's [facility] unknown) RECOMMENDATIONS + TREATMENT PLAN RECOMMENDATIONS for (unknown) (no (unknown) (unknown) Age/Sex: 26 / F (units (unknown) date) Date of Service: unknown) (unknown) (no (unknown) (unknown) All participants (units (unknown) date) + their role: unknown) (Providers,Parent, Spouse,etc): (unknown) (no (unknown) (unknown) Attending Dr: (units ( unknown) date) Sandy Juan RECORD CHANGER ASSEMBLER unknown) (unknown) (no (unknown) (unknown) BHIP Assessment + (units (unknown) date) Plan unknown) (unknown) (no (unknown) (unknown) BHIP Commercial Door Installer (units (unknown) date) Follow-Up unknown) (unknown) (no (unknown) (unknown) BHIP Goal #1: (units ( unknown) date) Medication unknown) management (unknown) (no (unknown) (unknown) BHIP Goal #2: (units ( unknown) date) Support around new unknown) babies. (unknown) (no (unknown) (unknown) BHIP Goal (units (unkn own) date) Progress#1: 5 (See unknown) medication section.) (unknown) (no (unknown) (unknown) BHIP Goal (units (unkn own) date) Progress#2: 4 unknown) (unknown) (no (unknown) (unknown) Case Formulation (units (unknown) date) unknown) (unknown) (no (unknown) (unknown) Cognitive (units (unkn own) date) Behavioral unknown) Therapy, Motivational Interviewing and Mindfulness (unknown) (no (unknown) (unknown) : 1995 (units (unknown) date) Acct:[id number] unknown) (unknown) (no (unknown) (unknown) Dept at (units (unkno wn) date) . unknown) (unknown) (no (unknown) (unknown) Discharge Plan: (units (unknown) date) February 2022 unknown) (unknown) (no (unknown) (unknown) Documented By: (units (unknown) date) Sandy Juan unknown) 01/30/22 0842 (unknown) (no (unknown) (unknown) Family:: (units (unkno wn) date) unknown) (unknown) (no (unknown) (unknown) Goals + Progress (units (unknown) date) unknown) (unknown) (no (unknown) (unknown) Interventions (units ( unknown) date) unknown) (unknown) (no (unknown) (unknown) Loc: [facility] (units (unkno wn) date) unknown) (unknown) (no (unknown) (unknown) Location of (units (un known) date) patient:: Home unknown) (unknown) (no (unknown) (unknown) Location of (units (un known) date) provider:: [facility] unknown) (unknown) (no (unknown) (unknown) Medication Update (units (unknown) date) unknown) (unknown) (no (unknown) (unknown) Other (units (unkno wn) date) unknown) (unknown) (no (unknown) (unknown) Other/Additional (units (unknown) date) Details:: unknown) (unknown) (no (unknown) (unknown) PCP Dr. Gilliam: (units (unknown) date) unknown) (unknown) (no (unknown) (unknown) Past: (units (unkno wn) date) unknown) (unknown) (no (unknown) (unknown) Patient consented (units (unknown) date) to receive unknown) services via telehealth?: Yes (unknown) (no (unknown) (unknown) Patient was (units (unk nown) date) diagnosed in 2016 unknown) with bipolar disorder. Patient is with tw (unknown) (no (unknown) (unknown) Patient: (units (unkno wn) date) Zev Bryant R unknown) MR#: [id number] (unknown) (no (unknown) (unknown) Presenting (units (unk nown) date) Problem Update unknown) (unknown) (no (unknown) (unknown) Previous session: (units (unknown) date) unknown) (unknown) (no (unknown) (unknown) Protective (units (unk nown) date) Factors: Spouse of unknown) 4 years, 2 daughters (unknown) (no (unknown) (unknown) Real-time,sychron (units (unknown) date) ous services were unknown) performed via:: [facility]See (unknown) (no (unknown) (unknown) Signed By: (units (unk nown) date) unknown) (unknown) (no (unknown) (unknown) Sandy Juan, (units (unknown) date) RECORD CHANGER ASSEMBLER, HOUSEKEEPER AND LAUNDRY ASSISTANT unknown) (unknown) (no (unknown) (unknown) TeleHealth (units (unk nown) date) unknown) (unknown) (no (unknown) (unknown) This note may (units ( unknown) date) have been all or unknown) partially generated using voice recognition (unknown) (no (unknown) (unknown) Time Spent (units (unk nown) date) unknown) (unknown) (no (unknown) (unknown) Time Spent: (units (un known) date) unknown) (unknown) (no (unknown) (unknown) Understood (units (unk nown) date) information. unknown) (unknown) (no (unknown) (unknown) Were services (units ( unknown) date) performed via unknown) telephone only?: No (unknown) (no (unknown) (unknown) appropriateness (units (unknown) date) of that program unknown) vs. other options. (unknown) (no (unknown) (unknown) as long as no (units ( unknown) date) adverse effects unknown) seen in baby after starting (unknown) (no (unknown) (unknown) , (units (unknown) date) low + sporadic use unknown) of gabapentin or lorazepam is typically safe (unknown) (no (unknown) (unknown) escitalopram (units (u nknown) date) oxalate 10 mg unknown) tablet (Lexapro) 10 mg PO DAILY (unknown) (no (unknown) (unknown) have occurred. (units (unknown) date) If there are any unknown) questions, please contact the Medical Records (unknown) (no (unknown) (unknown) hoping to get (units ( unknown) date) assistance with unknown) medication for her anxiety. (unknown) (no (unknown) (unknown) including SI (units (u nknown) date) unknown) (unknown) (no (unknown) (unknown) ins and due in (units (unknown) date) October 2021. Has a unknown) history of depression. Patient is (unknown) (no (unknown) (unknown) may occur. (units (unk nown) date) Occasional unknown) wrong-word or 'sound-alike' substitutions may have (unknown) (no (unknown) (unknown) occurred due to (units (unknown) date) the inherent unknown) limitations of voice recognition software. Please (unknown) (no (unknown) (unknown) please have your (units (unknown) date) team call to unknown) schedule (unknown) (no (unknown) (unknown) (units (unk nown) date) depression. , unknown) Zaid to discuss with [facility] team to assess (unknown) (no (unknown) (unknown) read the note (units ( unknown) date) carefully and unknown) recognize, using context, where these substitutions (unknown) (no (unknown) (unknown) software. (units (unkn own) date) Although every unknown) effort is made to edit content, foster care case manager errors Result panel 19 (unknown) (no (unknown) (unknown) (no value) (units (unk nown) date) unknown) (unknown) (no (unknown) (unknown) Status: Acute (units ( unknown) date) unknown) (unknown) (no (unknown) (unknown) Status: Suspected (units (unknown) date) unknown) (unknown) (no (unknown) (unknown) (no value) (units (unk nown) date) unknown) (unknown) (no (unknown) (unknown) 01/30/22 1604 (units ( unknown) date) unknown) (unknown) (no (unknown) (unknown) [place] (units ( unknown) date) [id number] unknown) (unknown) (no (unknown) (unknown) Care Management (units (unknown) date) Visit unknown) (unknown) (no (unknown) (unknown) Date EPDS GAD7 (units (unknown) date) unknown) (unknown) (no (unknown) (unknown) Date PHQ9 GAD7 (units (unknown) date) unknown) (unknown) (no (unknown) (unknown) [facility]) (unknown) (no (unknown) (unknown) Signed (units (unkno wn) date) unknown) (unknown) (no (unknown) (unknown) (no value) (units (unk nown) date) unknown) (unknown) (no (unknown) (unknown) Also has a (units (unk nown) date) previous diagnosis unknown) of bipolar disorder. (unknown) (no (unknown) (unknown) Has not thought (units (unknown) date) about it for a unknown) while. Spoke with [employer] who are doing (unknown) (no (unknown) (unknown) This Commercial Door Installer (units (unknown) date) will re-send with unknown) discharge letter. (unknown) (no (unknown) (unknown) accuracy of them. (units (unknown) date) unknown) (unknown) (no (unknown) (unknown) admit to [facility] for (units (unknown) date) a limited number unknown) of sessions, if not already engaged with (unknown) (no (unknown) (unknown) after delivery (units (unknown) date) once she stopped unknown) breast feeding, but only toook for about 1-2 (unknown) (no (unknown) (unknown) another (units (unkno wn) date) therapist. unknown) (unknown) (no (unknown) (unknown) appointment with (units (unknown) date) Dr. Gilliam. unknown) (unknown) (no (unknown) (unknown) but doesn't want (units (unknown) date) to feel too unknown) sleepy. (unknown) (no (unknown) (unknown) depression was 10 (units (unknown) date) times worse than unknown) it was before. [place] very fatigued, with (unknown) (no (unknown) (unknown) discuss longer (units (unknown) date) term counseling unknown) options. In the future, patient is able to re- (unknown) (no (unknown) (unknown) e night in the (units (unknown) date) hospital. Spouse unknown) will stay in a hotel nearby with the children. (unknown) (no (unknown) (unknown) feels that she (units (unknown) date) does not need unknown) additional counseling at this time. (unknown) (no (unknown) (unknown) monthly check-ins (units (unknown) date) until it is unknown) decided what they need to do. Patient thinks (unknown) (no (unknown) (unknown) months. States (units (unknown) date) that this is the unknown) only medication that has helped her. (unknown) (no (unknown) (unknown) more easily (units (un known) date) irritated unknown) (unknown) (no (unknown) (unknown) racing heart and (units (unknown) date) a panicky feeling unknown) all day. Lashing out at significant other, (unknown) (no (unknown) (unknown) take place on (units ( unknown) date) 02/10/22. Was unknown) disappointed to find out that she needs to spend th (unknown) (no (unknown) (unknown) that they will (units (unknown) date) need to take a unknown) parenting class. (unknown) (no (unknown) (unknown) the future. (units (un known) date) unknown) (unknown) (no (unknown) (unknown) was and (units (unknown) date) switched to unknown) sertraline. Put back on tegretol about 5-6 mo (unknown) (no (unknown) (unknown) what it was. (units (u nknown) date) unknown) (unknown) (no (unknown) (unknown) * 25 year old (units ( unknown) date) female referred to unknown) [facility] by Dr. Brown for anxiety and depression. (unknown) (no (unknown) (unknown) # Needs follow-up (units (unknown) date) visit for [facility] unknown) monitoring now that past period; (unknown) (no (unknown) (unknown) (1) Anxiety and (units (unknown) date) depression: unknown) (unknown) (no (unknown) (unknown) (2) Bipolar 2 (units ( unknown) date) disorder: unknown) (unknown) (no (unknown) (unknown) * 2 daughters (units ( unknown) date) ages 3 + 4. unknown) (unknown) (no (unknown) (unknown) * 01/16/22 - (units (unk nown) date) Emailed and mailed unknown) via [facility] Worries Worksheet. (unknown) (no (unknown) (unknown) * Also encouraged (units (unknown) date) her to explore unknown) breathing apps for her phone. (unknown) (no (unknown) (unknown) * Discussed (units (un known) date) grounding unknown) techniques, and provided patient with worksheet. (unknown) (no (unknown) (unknown) * Encouraged (units (u nknown) date) patient to write unknown) down her worries and fear and challenge the (unknown) (no (unknown) (unknown) * Escitalopram 10 (units (unknown) date) mg. unknown) (unknown) (no (unknown) (unknown) * Family has been (units (unknown) date) busy and patient unknown) continues to feel positive and hopeful about (unknown) (no (unknown) (unknown) * Feeling less (units (unknown) date) anxiety about unknown) recent situation with daughter's leaving the home. (unknown) (no (unknown) (unknown) * Hasn't used (units ( unknown) date) hydroxyzine since unknown) babies were born. (unknown) (no (unknown) (unknown) * Hydroxyzine - (units (unknown) date) makes very sleepy. unknown) Wanting something to help more with anxiety, (unknown) (no (unknown) (unknown) * In the future, (units (unknown) date) patient is unknown) encouraged to reach out to her insurance company to (unknown) (no (unknown) (unknown) * June 2021 - (units (unknown) date) citalopram 10 mg unknown) daily. Reports that her anxiety and (unknown) (no (unknown) (unknown) * Patient has (units ( unknown) date) been participating unknown) in [facility] since July 2022. (unknown) (no (unknown) (unknown) * Patient (units (unkn own) date) indicates that she unknown) did not receive the Worries Worksheet in the mail. (unknown) (no (unknown) (unknown) * Preparing for (units (unknown) date) weight loss unknown) surgery. Has started her limited diet. Surgery will (unknown) (no (unknown) (unknown) * Reviewed (units (unknown) date) Zaid's note and unknown) encouraged patient to make a follow up (unknown) (no (unknown) (unknown) * Sertraline -? (units (unknown) date) made her feel unknown) worse, similar to how she felt with citalopram. (unknown) (no (unknown) (unknown) * Started (units (unkn own) date) escitalopram 3 unknown) days ago (unknown) (no (unknown) (unknown) * Tegretol - 2016 (units (unknown) date) - 2017 after unknown) diagnosis of bipolar disorder. Stopped when she (unknown) (no (unknown) (unknown) * Today is (units (unk nown) date) patient's final unknown) [facility] appointment. Patient agrees to discharge and (unknown) (no (unknown) (unknown) * Took something (units (unknown) date) for anxiety for a unknown) brief time last year, it worked, but unsure (unknown) (no (unknown) (unknown) * Twins born (units (u nknown) date) October 25, 2021. unknown) (Georgiana + Devin ) (unknown) (no (unknown) (unknown) * Will start (units (u nknown) date) escitalopram after unknown) babies born,. (unknown) (no (unknown) (unknown) * With spouse for (units (unknown) date) 5 years and unknown) for 3. (unknown) (no (unknown) (unknown) * hydroxyzine - (units (unknown) date) 1-2 times per day unknown) - feels it helps because it 'knocks me out.' (unknown) (no (unknown) (unknown) - Consider (units (unk nown) date) alternatives to unknown) hydroxyzine to use as needed for anxiety; in (unknown) (no (unknown) (unknown) - Escitalopram: (units (unknown) date) can try increase unknown) to 20mg with close monitoring for activation (unknown) (no (unknown) (unknown) - Escitalopram: (units (unknown) date) if trying as unknown) prescribed, monitor closely for any worsening mood (unknown) (no (unknown) (unknown) - Recommend close (units (unknown) date) monitoring during unknown) period given h/o severe (unknown) (no (unknown) (unknown) (units (unknown) date) unknown) (unknown) (no (unknown) (unknown) (units (unknown) date) unknown) (unknown) (no (unknown) (unknown) (units (unknown) date) unknown) (unknown) (no (unknown) (unknown) (units (unknown) date) unknown) (unknown) (no (unknown) (unknown) (units (unknown) date) unknown) ------- (unknown) (no (unknown) (unknown) 0081 (units (unkno wn) date) unknown) (unknown) (no (unknown) (unknown) 01/30/22 (units (unkno wn) date) unknown) (unknown) (no (unknown) (unknown) 08/07/21 (units (unkno wn) date) unknown) (unknown) (no (unknown) (unknown) 08/07/21 - (units (unk nown) date) Provided patient unknown) with Support Warm Line and Motherhood (unknown) (no (unknown) (unknown) 08/07/21 14 17 (units (unknown) date) unknown) (unknown) (no (unknown) (unknown) 10/09/21 - (units (unknown) date) Zaid's unknown) RECOMMENDATIONS for Dr. Brown +. Dr. Gilliam: (unknown) (no (unknown) (unknown) 09/19/21 - (units (u nknown) date) Tawana - unknown) (unknown) (no (unknown) (unknown) 26 year old female (units (unknown) date) participating in unknown) [facility] for symptoms of anxiety and depression. (unknown) (no (unknown) (unknown) 10/15/21 - (units (unkno wn) date) unknown) (unknown) (no (unknown) (unknown) 10/15/21 11 17 (units (u nknown) date) unknown) (unknown) (no (unknown) (unknown) 10/31/21 - (units (unkn own) date) unknown) (unknown) (no (unknown) (unknown) 10/31/21 13 12 (units ( unknown) date) unknown) (unknown) (no (unknown) (unknown) 35 minutes (units (unk nown) date) unknown) (unknown) (no (unknown) (unknown) 12/09/21 Kevin 8 X (units (unknown) date) unknown) (unknown) (no (unknown) (unknown) 01/16/22 - (units (unkno wn) date) unknown) (unknown) (no (unknown) (unknown) 6/2/22 9 10 (units (un known) date) unknown) (unknown) (no (unknown) (unknown) 01/20/22 - (units (un known) date) Zaid's BHIP unknown) RECOMMENDATIONS + TREATMENT PLAN RECOMMENDATIONS for (unknown) (no (unknown) (unknown) Age/Sex: 26 / F (units (unknown) date) Date of Service: unknown) (unknown) (no (unknown) (unknown) All participants (units (unknown) date) + their role: unknown) (Providers,Parent, Spouse,etc): (unknown) (no (unknown) (unknown) Attending Dr: (units ( unknown) date) Sandy GROSS unknown) (unknown) (no (unknown) (unknown) BHIP Assessment + (units (unknown) date) Plan unknown) (unknown) (no (unknown) (unknown) BHIP Commercial Door Installer (units (unknown) date) Follow-Up unknown) (unknown) (no (unknown) (unknown) BHIP Goal #1: (units ( unknown) date) Medication unknown) management (unknown) (no (unknown) (unknown) BHIP Goal #2: (units ( unknown) date) Support around new unknown) babies. (unknown) (no (unknown) (unknown) BHIP Goal (units (unkn own) date) Progress#1: 7 (See unknown) medication section.) (unknown) (no (unknown) (unknown) BHIP Goal (units (unkn own) date) Progress#2: 10 unknown) (unknown) (no (unknown) (unknown) Case Formulation (units (unknown) date) unknown) (unknown) (no (unknown) (unknown) Cognitive (units (unkn own) date) Behavioral unknown) Therapy, Motivational Interviewing and Mindfulness (unknown) (no (unknown) (unknown) : 1995 (units (unknown) date) Acct:[id number] unknown) (unknown) (no (unknown) (unknown) Dept at (units (unkno wn) date) . unknown) (unknown) (no (unknown) (unknown) Documented By: (units (unknown) date) Sandy Juan unknown) 01/30/22 0842 (unknown) (no (unknown) (unknown) Family:: (units (unkno wn) date) unknown) (unknown) (no (unknown) (unknown) Goals + Progress (units (unknown) date) unknown) (unknown) (no (unknown) (unknown) Interventions (units ( unknown) date) unknown) (unknown) (no (unknown) (unknown) Loc: [facility] (units (unkno wn) date) unknown) (unknown) (no (unknown) (unknown) Location of (units (un known) date) patient:: Home unknown) (unknown) (no (unknown) (unknown) Location of (units (un known) date) provider:: [facility] unknown) (unknown) (no (unknown) (unknown) Medication Update (units (unknown) date) unknown) (unknown) (no (unknown) (unknown) Other (units (unkno wn) date) unknown) (unknown) (no (unknown) (unknown) Other/Additional (units (unknown) date) Details:: unknown) (unknown) (no (unknown) (unknown) PCP Dr. Gilliam: (units (unknown) date) unknown) (unknown) (no (unknown) (unknown) Past: (units (unkno wn) date) unknown) (unknown) (no (unknown) (unknown) Patient consented (units (unknown) date) to receive unknown) services via telehealth?: Yes (unknown) (no (unknown) (unknown) Patient was (units (un known) date) diagnosed in 2016 unknown) with bipolar disorder. Patient's twins were born (unknown) (no (unknown) (unknown) Patient: (units (unkno wn) date) Zev Bryant R unknown) MR#: [id number] (unknown) (no (unknown) (unknown) Presenting (units (unk nown) date) Problem Update unknown) (unknown) (no (unknown) (unknown) Previous (units (unkno wn) date) sessions: unknown) (unknown) (no (unknown) (unknown) Protective (units (unk nown) date) Factors: Spouse of unknown) 4 years, 3 daughters + 1 son (unknown) (no (unknown) (unknown) Real-time,sychron (units (unknown) date) ous services were unknown) performed via:: VSee (unknown) (no (unknown) (unknown) Signed By: (units (unk nown) date) <Electronically unknown) signed by RENATO Tran> (unknown) (no (unknown) (unknown) Sandy Juan, (units (unknown) date) RECORD CHANGER ASSEMBLER, HOUSEKEEPER AND LAUNDRY ASSISTANT unknown) (unknown) (no (unknown) (unknown) TeleHealth (units (unk nown) date) unknown) (unknown) (no (unknown) (unknown) This note may (units ( unknown) date) have been all or unknown) partially generated using voice recognition (unknown) (no (unknown) (unknown) Time Spent (units (unk nown) date) unknown) (unknown) (no (unknown) (unknown) Time Spent: (units (un known) date) unknown) (unknown) (no (unknown) (unknown) Today is (units (unkno wn) date) patient's final unknown) [facility] appointment. (unknown) (no (unknown) (unknown) Understood (units (unk nown) date) information. unknown) (unknown) (no (unknown) (unknown) Were services (units ( unknown) date) performed via unknown) telephone only?: No (unknown) (no (unknown) (unknown) and patient is (units (unknown) date) not exhibiting unknown) symptoms of postpartem depression. Continues to (unknown) (no (unknown) (unknown) appropriateness (units (unknown) date) of that program unknown) vs. other options. (unknown) (no (unknown) (unknown) as long as no (units ( unknown) date) adverse effects unknown) seen in baby after starting (unknown) (no (unknown) (unknown) , (units (unknown) date) low + sporadic use unknown) of gabapentin or lorazepam is typically safe (unknown) (no (unknown) (unknown) deal with some (units (unknown) date) anxiety, but feels unknown) happy and positive. (unknown) (no (unknown) (unknown) escitalopram (units (u nknown) date) oxalate 10 mg unknown) tablet (Lexapro) 10 mg PO DAILY (unknown) (no (unknown) (unknown) have occurred. (units (unknown) date) If there are any unknown) questions, please contact the Medical Records (unknown) (no (unknown) (unknown) including SI (units (u nknown) date) unknown) (unknown) (no (unknown) (unknown) may occur. (units (unk nown) date) Occasional unknown) wrong-word or 'sound-alike' substitutions may have (unknown) (no (unknown) (unknown) occurred due to (units (unknown) date) the inherent unknown) limitations of voice recognition software. Please (unknown) (no (unknown) (unknown) please have your (units (unknown) date) team call to unknown) schedule (unknown) (no (unknown) (unknown) (units (unk nown) date) depression. , unknown) Mar to discuss with [facility] team to assess (unknown) (no (unknown) (unknown) read the note (units ( unknown) date) carefully and unknown) recognize, using context, where these substitutions (unknown) (no (unknown) (unknown) software. (units (unkn own) date) Although every unknown) effort is made to edit content, foster care case manager errors Result panel 20 (unknown) (no (unknown) (unknown) (no value) (units (unk nown) date) unknown) (unknown) (no (unknown) (unknown) Status: Acute (units ( unknown) date) unknown) (unknown) (no (unknown) (unknown) Status: Suspected (units (unknown) date) unknown) (unknown) (no (unknown) (unknown) (no value) (units (unk nown) date) unknown) (unknown) (no (unknown) (unknown) ADDENDUM (units (u nknown) date) unknown) (unknown) (no (unknown) (unknown) 01/30/22 1604 (units ( unknown) date) unknown) (unknown) (no (unknown) (unknown) 02/10/22 1035 (units ( unknown) date) unknown) (unknown) (no (unknown) (unknown) [place], [place] (units ( unknown) date) [id number] unknown) (unknown) (no (unknown) (unknown) Care Management (units (unknown) date) Visit unknown) (unknown) (no (unknown) (unknown) Date EPDS GAD7 (units (unknown) date) unknown) (unknown) (no (unknown) (unknown) Date PHQ9 GAD7 (units (unknown) date) unknown) (unknown) (no (unknown) (unknown) [facility]) (unknown) (no (unknown) (unknown) Signed with (units (un known) date) Addenda unknown) (unknown) (no (unknown) (unknown) (no value) (units (unk nown) date) unknown) (unknown) (no (unknown) (unknown) Also has a (units (unk nown) date) previous diagnosis unknown) of bipolar disorder. (unknown) (no (unknown) (unknown) Has not thought (units (unknown) date) about it for a unknown) while. Spoke with [facility] who are doing (unknown) (no (unknown) (unknown) This Commercial Door Installer (units (unknown) date) will re-send with unknown) discharge letter. (unknown) (no (unknown) (unknown) accuracy of them. (units (unknown) date) unknown) (unknown) (no (unknown) (unknown) admit to [facility] for (units (unknown) date) a limited number unknown) of sessions, if not already engaged with (unknown) (no (unknown) (unknown) after delivery (units (unknown) date) once she stopped unknown) breast feeding, but only toook for about 1-2 (unknown) (no (unknown) (unknown) another (units (unkno wn) date) therapist. unknown) (unknown) (no (unknown) (unknown) appointment with (units (unknown) date) Dr. Gilliam. unknown) (unknown) (no (unknown) (unknown) but doesn't want (units (unknown) date) to feel too unknown) sleepy. (unknown) (no (unknown) (unknown) depression was 10 (units (unknown) date) times worse than unknown) it was before. [place] very fatigued, with (unknown) (no (unknown) (unknown) discuss longer (units (unknown) date) term counseling unknown) options. In the future, patient is able to re- (unknown) (no (unknown) (unknown) e night in the (units (unknown) date) hospital. Spouse unknown) will stay in a hotel nearby with the children. (unknown) (no (unknown) (unknown) feels that she (units (unknown) date) does not need unknown) additional counseling at this time. (unknown) (no (unknown) (unknown) monthly check-ins (units (unknown) date) until it is unknown) decided what they need to do. Patient thinks (unknown) (no (unknown) (unknown) months. States (units (unknown) date) that this is the unknown) only medication that has helped her. (unknown) (no (unknown) (unknown) more easily (units (un known) date) irritated unknown) (unknown) (no (unknown) (unknown) racing heart and (units (unknown) date) a panicky feeling unknown) all day. Lashing out at significant other, (unknown) (no (unknown) (unknown) take place on (units ( unknown) date) 02/10/22. Was unknown) disappointed to find out that she needs to spend th (unknown) (no (unknown) (unknown) that they will (units (unknown) date) need to take a unknown) parenting class. (unknown) (no (unknown) (unknown) the future. (units (un known) date) unknown) (unknown) (no (unknown) (unknown) was and (units (unknown) date) switched to unknown) sertraline. Put back on tegretol about 5-6 mo (unknown) (no (unknown) (unknown) what it was. (units (u nknown) date) unknown) (unknown) (no (unknown) (unknown) * 25 year old (units ( unknown) date) female referred to unknown) [facility] by Dr. Brown for anxiety and depression. (unknown) (no (unknown) (unknown) # Needs follow-up (units (unknown) date) visit for [facility] unknown) monitoring now that past period; (unknown) (no (unknown) (unknown) (1) Anxiety and (units (unknown) date) depression: unknown) (unknown) (no (unknown) (unknown) (2) Bipolar 2 (units ( unknown) date) disorder: unknown) (unknown) (no (unknown) (unknown) * 2 daughters (units ( unknown) date) ages 3 + 4. unknown) (unknown) (no (unknown) (unknown) * 01/16/22 - (units (unk nown) date) Emailed and mailed unknown) via [facility] Worries Worksheet. (unknown) (no (unknown) (unknown) * Also encouraged (units (unknown) date) her to explore unknown) breathing apps for her phone. (unknown) (no (unknown) (unknown) * Discussed (units (un known) date) grounding unknown) techniques, and provided patient with worksheet. (unknown) (no (unknown) (unknown) * Encouraged (units (u nknown) date) patient to write unknown) down her worries and fear and challenge the (unknown) (no (unknown) (unknown) * Escitalopram 10 (units (unknown) date) mg. unknown) (unknown) (no (unknown) (unknown) * Family has been (units (unknown) date) busy and patient unknown) continues to feel positive and hopeful about (unknown) (no (unknown) (unknown) * Feeling less (units (unknown) date) anxiety about unknown) recent situation with daughter's leaving the home. (unknown) (no (unknown) (unknown) * Hasn't used (units ( unknown) date) hydroxyzine since unknown) babies were born. (unknown) (no (unknown) (unknown) * Hydroxyzine - (units (unknown) date) makes very sleepy. unknown) Wanting something to help more with anxiety, (unknown) (no (unknown) (unknown) * In the future, (units (unknown) date) patient is unknown) encouraged to reach out to her insurance company to (unknown) (no (unknown) (unknown) * June 2021 - (units (unknown) date) citalopram 10 mg unknown) daily. Reports that her anxiety and (unknown) (no (unknown) (unknown) * Patient has (units ( unknown) date) been participating unknown) in [facility] since July 2022. (unknown) (no (unknown) (unknown) * Patient (units (unkn own) date) indicates that she unknown) did not receive the Worries Worksheet in the mail. (unknown) (no (unknown) (unknown) * Preparing for (units (unknown) date) weight loss unknown) surgery. Has started her limited diet. Surgery will (unknown) (no (unknown) (unknown) * Reviewed (units (unknown) date) Zaid's note and unknown) encouraged patient to make a follow up (unknown) (no (unknown) (unknown) * Sertraline -? (units (unknown) date) made her feel unknown) worse, similar to how she felt with citalopram. (unknown) (no (unknown) (unknown) * Started (units (unkn own) date) escitalopram 3 unknown) days ago (unknown) (no (unknown) (unknown) * Tegretol - 2016 (units (unknown) date) - 2017 after unknown) diagnosis of bipolar disorder. Stopped when she (unknown) (no (unknown) (unknown) * Today is (units (unk nown) date) patient's final unknown) [facility] appointment. Patient agrees to discharge and (unknown) (no (unknown) (unknown) * Took something (units (unknown) date) for anxiety for a unknown) brief time last year, it worked, but unsure (unknown) (no (unknown) (unknown) * Twins born (units (u nknown) date) October 25, 2021. unknown) (Georgiana + Devin Gibson) (unknown) (no (unknown) (unknown) * Will start (units (u nknown) date) escitalopram after unknown) babies born,. (unknown) (no (unknown) (unknown) * With spouse for (units (unknown) date) 5 years and unknown) for 3. (unknown) (no (unknown) (unknown) * hydroxyzine - (units (unknown) date) 1-2 times per day unknown) - feels it helps because it 'knocks me out.' (unknown) (no (unknown) (unknown) - Consider (units (unk nown) date) alternatives to unknown) hydroxyzine to use as needed for anxiety; in (unknown) (no (unknown) (unknown) - Escitalopram: (units (unknown) date) can try increase unknown) to 20mg with close monitoring for activation (unknown) (no (unknown) (unknown) - Escitalopram: (units (unknown) date) if trying as unknown) prescribed, monitor closely for any worsening mood (unknown) (no (unknown) (unknown) - Recommend close (units (unknown) date) monitoring during unknown) period given h/o severe (unknown) (no (unknown) (unknown) (units (unknown) date) unknown) (unknown) (no (unknown) (unknown) (units (unknown) date) unknown) (unknown) (no (unknown) (unknown) (units (unknown) date) unknown) (unknown) (no (unknown) (unknown) (units (unknown) date) unknown) (unknown) (no (unknown) (unknown) (units (unknown) date) unknown) ------- (unknown) (no (unknown) (unknown) 008 (units (unkno wn) date) unknown) (unknown) (no (unknown) (unknown) 01/30/22 (units (unkno wn) date) unknown) (unknown) (no (unknown) (unknown) 08/07/21 (units (unkno wn) date) unknown) (unknown) (no (unknown) (unknown) 08/07/21 - (units (unk nown) date) Provided patient unknown) with Support Warm Line and Motherhood (unknown) (no (unknown) (unknown) 08/07/21 14 17 (units (unknown) date) unknown) (unknown) (no (unknown) (unknown) 10/09/21 - (units (unknown) date) Zaid's unknown) RECOMMENDATIONS for Dr. Brown +. Dr. Gilliam: (unknown) (no (unknown) (unknown) 09/19/21 - (units (u nknown) date) Tawana - unknown) (unknown) (no (unknown) (unknown) 26 year old female (units (unknown) date) participating in unknown) [facility] for symptoms of anxiety and depression. (unknown) (no (unknown) (unknown) 10/15/21 - (units (unkno wn) date) unknown) (unknown) (no (unknown) (unknown) 10/15/21 11 17 (units (u nknown) date) unknown) (unknown) (no (unknown) (unknown) 10/31/21 - (units (unkn own) date) unknown) (unknown) (no (unknown) (unknown) 10/31/21 13 12 (units ( unknown) date) unknown) (unknown) (no (unknown) (unknown) 35 minutes (units (unk nown) date) unknown) (unknown) (no (unknown) (unknown) 12/09/21 [place] 8 X (units (unknown) date) unknown) (unknown) (no (unknown) (unknown) 01/16/22 - (units (unkno wn) date) unknown) (unknown) (no (unknown) (unknown) 01/16/22 9 10 (units (un known) date) unknown) (unknown) (no (unknown) (unknown) 01/20/22 - (units (un known) date) Enmanuel ANDINO unknown) RECOMMENDATIONS + TREATMENT PLAN RECOMMENDATIONS for (unknown) (no (unknown) (unknown) Addendum (units (unkno wn) date) Documented By: unknown) RENATO Tran (unknown) (no (unknown) (unknown) Addendum Signed (units (unknown) date) By: unknown) <Electronically signed by Sandy Juan MS (unknown) (no (unknown) (unknown) Age/Sex: 26 / F (units (unknown) date) Date of Service: unknown) (unknown) (no (unknown) (unknown) Agreed to by [facility] (units (unknown) date) team unknown) (unknown) (no (unknown) (unknown) All participants (units (unknown) date) + their role: unknown) (Providers,Parent, Spouse,etc): (unknown) (no (unknown) (unknown) Attending Dr: (units ( unknown) date) Sandy GROSS unknown) (unknown) (no (unknown) (unknown) BH Assessment + (units (unknown) date) Plan unknown) (unknown) (no (unknown) (unknown) BHIP Commercial Door Installer (units (unknown) date) Follow-Up unknown) (unknown) (no (unknown) (unknown) BHSHOBHA CoCM Time: (units (unknown) date) client business manager total unknown) time spent in discharge process including (unknown) (no (unknown) (unknown) BHIP Discharge (units (unknown) date) Note unknown) (unknown) (no (unknown) (unknown) BHIP Goal #1: (units ( unknown) date) Medication unknown) management (unknown) (no (unknown) (unknown) BHIP Goal #2: (units ( unknown) date) Support around new unknown) babies. (unknown) (no (unknown) (unknown) BHIP Goal (units (unkn own) date) Progress#1: 7 (See unknown) medication section.) (unknown) (no (unknown) (unknown) BHIP Goal (units (unkn own) date) Progress#2: 10 unknown) (unknown) (no (unknown) (unknown) Case Formulation (units (unknown) date) unknown) (unknown) (no (unknown) (unknown) Cognitive (units (unkn own) date) Behavioral unknown) Therapy, Motivational Interviewing and Mindfulness (unknown) (no (unknown) (unknown) : 1995 (units (unknown) date) Acct:[id number] unknown) (unknown) (no (unknown) (unknown) Dept at (units (unkno wn) date) . unknown) (unknown) (no (unknown) (unknown) Documented By: (units (unknown) date) Sandy Juan unknown) 01/30/22 0842 (unknown) (no (unknown) (unknown) Family:: (units (unkno wn) date) unknown) (unknown) (no (unknown) (unknown) Future Plans: (units ( unknown) date) Refer to BHIP in unknown) the future as needed for worsening symptoms. (unknown) (no (unknown) (unknown) Goals + Progress (units (unknown) date) unknown) (unknown) (no (unknown) (unknown) Interventions (units ( unknown) date) unknown) (unknown) (no (unknown) (unknown) Loc: [facility] (units (unkno wn) date) unknown) (unknown) (no (unknown) (unknown) Location of (units (un known) date) patient:: Home unknown) (unknown) (no (unknown) (unknown) Location of (units (un known) date) provider:: [facility] unknown) (unknown) (no (unknown) (unknown) Medication Update (units (unknown) date) unknown) (unknown) (no (unknown) (unknown) Other (units (unkno wn) date) unknown) (unknown) (no (unknown) (unknown) Other/Additional (units (unknown) date) Details:: unknown) (unknown) (no (unknown) (unknown) PCP Dr. Gilliam: (units (unknown) date) unknown) (unknown) (no (unknown) (unknown) Past: (units (unkno wn) date) unknown) (unknown) (no (unknown) (unknown) Patient can (units (un known) date) readmit to [facility] unknown) for a limited course of therapy. (unknown) (no (unknown) (unknown) Patient consented (units (unknown) date) to receive unknown) services via telehealth?: Yes (unknown) (no (unknown) (unknown) Patient was (units (un known) date) diagnosed in 2015 unknown) with bipolar disorder. Patient's twins were born (unknown) (no (unknown) (unknown) Patient: (units (unkno wn) date) Zev Bryant R unknown) MR#: [id number] (unknown) (no (unknown) (unknown) Presenting (units (unk nown) date) Problem Update unknown) (unknown) (no (unknown) (unknown) Previous (units (unkno wn) date) sessions: unknown) (unknown) (no (unknown) (unknown) Protective (units (unk nown) date) Factors: Spouse of unknown) 4 years, 3 daughters + 1 son (unknown) (no (unknown) (unknown) Real-time,sychron (units (unknown) date) ous services were unknown) performed via:: VSee (unknown) (no (unknown) (unknown) Reason for (units (unk nown) date) Discharge: goals unknown) met (unknown) (no (unknown) (unknown) Signed By: (units (unk nown) date) <Electronically unknown) signed by RENATO Tran> (unknown) (no (unknown) (unknown) Sandy Juan, (units (unknown) date) RENATO, HOUSEKEEPER AND LAUNDRY ASSISTANT unknown) (unknown) (no (unknown) (unknown) TeleHealth (units (unk nown) date) unknown) (unknown) (no (unknown) (unknown) This note may (units ( unknown) date) have been all or unknown) partially generated using voice recognition (unknown) (no (unknown) (unknown) Time Spent (units (unk nown) date) unknown) (unknown) (no (unknown) (unknown) Time Spent: (units (un known) date) unknown) (unknown) (no (unknown) (unknown) Today is (units (unkno wn) date) patient's final unknown) BHIP appointment. (unknown) (no (unknown) (unknown) Understood (units (unk nown) date) information. unknown) (unknown) (no (unknown) (unknown) W> 02/10/22 (units (unknown) date) 1035 unknown) (unknown) (no (unknown) (unknown) Were services (units ( unknown) date) performed via unknown) telephone only?: No (unknown) (no (unknown) (unknown) and communication (units (unknown) date) with patient: 10 unknown) min (unknown) (no (unknown) (unknown) and patient is (units (unknown) date) not exhibiting unknown) symptoms of postpartem depression. Continues to (unknown) (no (unknown) (unknown) appropriateness (units (unknown) date) of that program unknown) vs. other options. (unknown) (no (unknown) (unknown) as long as no (units ( unknown) date) adverse effects unknown) seen in baby after starting (unknown) (no (unknown) (unknown) , (units (unknown) date) low + sporadic use unknown) of gabapentin or lorazepam is typically safe (unknown) (no (unknown) (unknown) communication (units ( unknown) date) with referring unknown) provider + psychiatric income tax consultant, documentation, (unknown) (no (unknown) (unknown) deal with some (units (unknown) date) anxiety, but feels unknown) happy and positive. (unknown) (no (unknown) (unknown) escitalopram (units (u nknown) date) oxalate 10 mg unknown) tablet (Lexapro) 10 mg PO DAILY (unknown) (no (unknown) (unknown) have occurred. (units (unknown) date) If there are any unknown) questions, please contact the Medical Records (unknown) (no (unknown) (unknown) including SI (units (u nknown) date) unknown) (unknown) (no (unknown) (unknown) may occur. (units (unk nown) date) Occasional unknown) wrong-word or 'sound-alike' substitutions may have (unknown) (no (unknown) (unknown) occurred due to (units (unknown) date) the inherent unknown) limitations of voice recognition software. Please (unknown) (no (unknown) (unknown) please have your (units (unknown) date) team call to unknown) schedule (unknown) (no (unknown) (unknown) (units (unk nown) date) depression. , unknown) Zaid to discuss with [facility] team to assess (unknown) (no (unknown) (unknown) read the note (units ( unknown) date) carefully and unknown) recognize, using context, where these substitutions (unknown) (no (unknown) (unknown) software. (units (unkn own) date) Although every unknown) effort is made to edit content, foster care case manager errors Result panel 21 (unknown) (no (unknown) (unknown) (no value) (units (unk nown) date) unknown) (unknown) (no (unknown) (unknown) Status: Acute (units ( unknown) date) unknown) (unknown) (no (unknown) (unknown) Status: (units (unkno wn) date) Suspected unknown) (unknown) (no (unknown) (unknown) 02/13/22 0902 (units ( unknown) date) unknown) (unknown) (no (unknown) (unknown) [place], [place] (units ( unknown) date) [address] unknown) (unknown) (no (unknown) (unknown) Care Management (units (unknown) date) Visit unknown) (unknown) (no (unknown) (unknown) [facility] unknown) (unknown) (no (unknown) (unknown) Signed (units (unkno wn) date) unknown) (unknown) (no (unknown) (unknown) (no value) (units (unk nown) date) unknown) (unknown) (no (unknown) (unknown) (1) Anxiety and (units (unknown) date) depression: unknown) (unknown) (no (unknown) (unknown) (2) Bipolar 2 (units ( unknown) date) disorder: unknown) (unknown) (no (unknown) (unknown) - Consideration (units (unknown) date) in weekly unknown) caseload review with psychiatric income tax consultant and (unknown) (no (unknown) (unknown) - Entering (units (unkn own) date) patients into a unknown) registry for tracking patient follow-up and progress; (unknown) (no (unknown) (unknown) - Initial (units (unkno wn) date) assessment, unknown) including administration of validated scales and resulting (unknown) (no (unknown) (unknown) - Ongoing (units (unkn own) date) collaboration and unknown) coordination with treating providers; and (unknown) (no (unknown) (unknown) - Outreach and (units (unknown) date) engagement of unknown) patients; (unknown) (no (unknown) (unknown) - Provision of (units (unknown) date) brief unknown) interventions using evidence-based treatments such as (unknown) (no (unknown) (unknown) - Relapse (units (unkn own) date) prevention unknown) planning and preparation for discharge from active (unknown) (no (unknown) (unknown) - Tracking (units (unk nown) date) patient follow-up unknown) and progress using validated rating scales; (unknown) (no (unknown) (unknown) 0081 (units (unkno wn) date) unknown) (unknown) (no (unknown) (unknown) 02/13/22 (units (unkno wn) date) unknown) (unknown) (no (unknown) (unknown) Age/Sex: 26 / F (units (unknown) date) Date of unknown) Service: (unknown) (no (unknown) (unknown) Attending Dr: (units ( unknown) date) Sandy GROSS unknown) (unknown) (no (unknown) (unknown) BHIP Assessment (units (unknown) date) + Plan unknown) (unknown) (no (unknown) (unknown) BHIP Monthly (units (u nknown) date) Summary:?January unknown) 2021, 110 minutes (unknown) (no (unknown) (unknown) : 1995 (units (unknown) date) Acct:[id number] unknown) (unknown) (no (unknown) (unknown) Dept at (units (unkno wn) date) . unknown) (unknown) (no (unknown) (unknown) Documented By: (units (unknown) date) Sandy Juan unknown) 02/13/22 0902 (unknown) (no (unknown) (unknown) Integration (units (unk nown) date) Program, with unknown) behavioral health life care planner, in consultation with a (unknown) (no (unknown) (unknown) Loc: [facility] (units (unkno wn) date) unknown) (unknown) (no (unknown) (unknown) Note (units (unkno wn) date) unknown) (unknown) (no (unknown) (unknown) Notes (units (unkno wn) date) unknown) (unknown) (no (unknown) (unknown) Patient is (units (unk nown) date) participating in unknown) care with [facility] (unknown) (no (unknown) (unknown) Patient: (units (unkno wn) date) Zev Bryant R unknown) MR#: [id number] (unknown) (no (unknown) (unknown) Signed By: (units (unk nown) date) <Electronically unknown) signed by RENATO Tran> (unknown) (no (unknown) (unknown) This note may (units ( unknown) date) have been all or unknown) partially generated using voice recognition (unknown) (no (unknown) (unknown) activities; (units (un known) date) unknown) (unknown) (no (unknown) (unknown) behavioral (units (unk nown) date) activation, unknown) problem-solving treatment, and other focused treatment (unknown) (no (unknown) (unknown) following (units (unkn own) date) elements unknown) documented individually as appropriate: (unknown) (no (unknown) (unknown) have occurred. (units (unknown) date) If there are any unknown) questions, please contact the Medical Records (unknown) (no (unknown) (unknown) in a treatment (units (unknown) date) plan; unknown) (unknown) (no (unknown) (unknown) may occur. (units (unk nown) date) Occasional unknown) wrong-word or 'sound-alike' substitutions may have (unknown) (no (unknown) (unknown) modifications to (units (unknown) date) treatment, if unknown) recommended; (unknown) (no (unknown) (unknown) occurred due to (units (unknown) date) the inherent unknown) limitations of voice recognition software. Please (unknown) (no (unknown) (unknown) psychiatric (units (un known) date) income tax consultant, and unknown) directed by the treating provider, with the (unknown) (no (unknown) (unknown) read the note (units ( unknown) date) carefully and unknown) recognize, using context, where these substitutions (unknown) (no (unknown) (unknown) software. (units (unkn own) date) Although every unknown) effort is made to edit content, foster care case manager errors (unknown) (no (unknown) (unknown) treatment. (units (unk nown) date) unknown) Social History date description facility (no date) Ex-smoker (finding) [facility] Vital Signs date measurement value units +0000 BMI BMI 46.8 kg/m2 [id number]+0000 BP_diastolic BP_diastolic 78 mm[H g] [id number]+0000 BP_systolic BP_systolic 130 mm[Hg] [id number]+0000 height_metric height_metric 164.59 cm [id number]+0000 height_standard height_standard 64.8 in [id number]+0000 weight_metric weight_metric 57.61 kg [id number]+0000 weight_standard weight_standard 127.01 lb
--- NOTE | 2022-02-18 22:48 | ED Physician Documentation ---
PD HPI SKIN - Stated complaint Stated Complaint: ALLERGIC REACTION - Chief complaint Chief Complaint: Wound - History obtained from History obtained from: Patient - Additional information Additional information: The patient comes emergency department chief complaint of truncal rash after her gastric bypass surgery night last week. She states that she has a big patch that is erythematous and itchy on her central abdominal wall and thinks that it is from something that was placed on her abdomen but she is not sure what. She is not known to have an adhesive allergy. She is also noticed itchy "bumps" in both her flanks and hips. No swelling in her mouth or throat. No difficulty breathing. Review of Systems Ten Systems: 10 systems reviewed and negative Constitutional: reports: Reviewed and negative Eyes: reports: Reviewed and negative Ears: reports: Reviewed and negative Nose: reports: Reviewed and negative Throat: reports: Reviewed and negative Cardiac: reports: Reviewed and negative Respiratory: reports: Reviewed and negative GI: reports: Reviewed and negative : reports: Reviewed and negative Skin: reports: Rash Musculoskeletal: reports: Reviewed and negative Neurologic: reports: Reviewed and negative Psychiatric: reports: Reviewed and negative Endocrine: reports: Reviewed and negative Immunocompromised: reports: Reviewed and negative PD PAST MEDICAL HISTORY - Past Surgical History Past Surgical History: Yes Ortho: Other - Present Medications Home Medications: Ambulatory Orders Medication Instructions Recorded Confirmed Labetalol [Trandate] 100 mg PO DAILY #30 tablet 03/20/21 diphenhydrAMINE [Benadryl] 25 mg PO Q4-6H PRN #20 cap 02/18/22 predniSONE [Deltasone] 60 mg PO DAILY 5 Days #15 tablet 02/18/22 - Allergies Allergies/Adverse Reactions: Allergies Allergy/AdvReac Type Severity Reaction Status Date / Time No Known Drug Allergies Allergy Verified 01/12/21 21:05 - Social History Does the pt smoke?: No Smoking Status: Never smoker Does the pt drink ETOH?: Yes Does the pt have substance abuse?: No - Immunizations Immunizations are current?: Yes PD ED PE NORMAL - Vitals Vital signs reviewed: Yes - General General: Alert and oriented X 3, No acute distress, Well developed/nourished - HEENT HEENT: Atraumatic, PERRL, EOMI, Moist mucous membranes - Neck Neck: Supple, no meningeal sign - Respiratory Respiratory: No respiratory distress - Abdomen Abdomen: Soft, Non tender, Non distended, Other (Healing surgical incision sites which are clean dry and intact. Large erythematous, roughly rectangular patch in midline upper abdomen. No erythema surrounding incision sites.) - Derm Derm: Normal color, Warm and dry, Other (Maculopapular rash in bilateral flanks and hips. Erythematous patch in upper abdomen as described above.) - Extremities Extremities: No deformity, No edema - Neuro Neuro: Alert and oriented X 3 - Psych Psych: Normal mood, Normal affect Results - Vitals Vitals: Vital Signs - 24 hr 02/18/22 21:23 Temperature 36.3 C L Heart Rate 65 Respiratory 16 Rate Blood Pressure 138/77 H O2 Saturation 99 Oxygen O2 Source Room air PD MEDICAL DECISION MAKING - ED course Complexity details: considered differential, d/w patient ED course: I discussed with the patient that she most likely has a contact allergic reaction. I will start her on Benadryl and prednisone. Departure - Departure Clinical Impression: Allergic reaction Qualifiers: Encounter type: initial encounter Qualified Code(s): T78.40XA - Allergy, unspecified, initial encounter Condition: Stable Instructions: ED Allergic Reaction General Other Prescriptions: diphenhydrAMINE [Benadryl] 25 mg PO Q4-6H PRN #20 cap PRN Reason: Allergy Symptoms predniSONE [Deltasone] 60 mg PO DAILY 5 Days #15 tablet Comments: Please take allergy medications as needed while you have the rash. Your prescriptions have been electronically transmitted to [facility] in [place].
[2022-02-18] MEDS: diphenhydrAMINE 25 MG CAPSULE PO STA (22:59)
[2022-02-18] MEDS: predniSONE 20 MG TABLET PO STA (22:59)
[2022-02-18 23:00] VITALS: BP 130/78
== END 2022-02-18 22:59 | disposition home or self-care (01) ==
LOC: ED 21:20
DX: T78.40XA Allergy, unspecified, initial encounter (principal)
CPT/HCPCS: 99282; A9270; J7512

== ENCOUNTER 2022-04-11 11:33 | Outpatient (CLI) | payer OTHER ==
--- NOTE | 2022-04-11 13:35 | XRAY Report ---
PROCEDURE: Hip w/Pelvis 2-3V LT INDICATIONS: HIP PAIN, KNEE PAIN TECHNIQUE: AP pelvis with lateral view of the left hip. COMPARISON: None. FINDINGS: Bones: Postsurgical changes are seen from remote proximal femoral fracture fixation with 3 metallic screws at the greater tuberosity. There is chronic osseous remodeling of the left acetabulum and left femoral head with flattening of the superior articular surface, which may be related to degenerative changes versus prior trauma or osteonecrosis. Right hip appears to be intact. Pelvic ring appears in tact. No suspicious bony lesions. Soft tissues: The visualized bowel gas pattern is normal. No suspicious soft tissue calcifications. IMPRESSION: 1.Postoperative changes at the left greater trochanter. No acute cardiopulmonary abnormality. 2.Chronic osseous irregularity and remodeling of the left acetabulum and left femoral head most likel y represents secondary degenerative changes related to prior trauma or prior osteonecrosis. Reviewed by: Marcello Harris MD on 04/11/2022 1:34 PM PDT Approved by: Marcello Harris MD on 04/11/2022 1:34 PM PDT Station ID: [id number]
--- NOTE | 2022-04-11 16:05 | XRAY Report ---
PROCEDURE: Knee 3 View LT INDICATIONS: HIP PAIN, KNEE PAIN TECHNIQUE: 3 views of the left knee(s) were acquired. COMPARISON: None. FINDINGS: Bones: No fractures or dislocations. No suspicious bony lesions. Soft tissues: No joint effusion. No suspicious soft tissue calcifications. IMPRESSION: No significant osseous abnormality identified. Consider further evaluation with MRI if clinically indicated. Reviewed by: Gareth Keyes MD on 04/11/2022 4:04 PM PDT Approved by: Gareth Keyes MD on 04/11/2022 4:04 PM PDT Station ID: [id number]
== END 2022-04-11 11:34 | disposition home or self-care (01) ==
LOC: DI.N 11:33
PROVIDERS: ATTEND Internal Medicine Cardiovascular Disease
DX: M25.562 Pain in left knee (principal); S72.112D Displaced fracture of greater trochanter of left femur, subsequent encounter for closed fracture with routine healing

== ENCOUNTER 2022-10-12 22:26 | Emergency (ER) | payer OTHER ==
[2022-10-12] MEDS ORDERED: SODIUM CHLORIDE 0.9% 1,000 ML IV STA (22:40)
--- OUTSIDE RECORDS SUMMARY | 2022-10-12 22:50 | EXTERNAL MEDICAL SUMMARY RPT | Continuity of Care Document ---
:1995 Author Organization [facility] Address [address] [place] [address] Phone Allergies No information. Encounters No information. Functional Status No information. Immunizations No information. Medications No information. Problems date description facility 2022-08-18 08:31 Iron deficiency anemia, unspecified [facility] 2022-08-18 08:31 Anemia, unspecified [facility] 2022-08-18 09:15 Iron deficiency anemia, unspecified [facility] 2022-08-18 09:15 Anemia, unspecified [facility] 2022-08-19 10:17 Iron deficiency anemia, unspecified [facility] 2022-08-19 10:17 Anemia, unspecified [facility] Procedures No information. Results/Labs No information. Social History No information. Vital Signs No information.
[2022-10-12 22:54] LABS: BASOPHILS % (AUTO) 0.4 %; EOSINOPHILS # (AUTO) 0.1 10^3/uL (0.0-0.7); HCT - HEMATOCRIT 32.3 % (37.0-47.0); HGB - HEMOGLOBIN 9.4 g/dL (12.0-16.0); LYMPHOCYTES # (AUTO) 2.9 10^3/uL (1.5-3.5); LYMPHOCYTES % (AUTO) 34.9 %; MEAN CORPUSCULAR HEMOGLOBIN 19.4 pg (27.0-31.0); MEAN CORPUSCULAR HGB CONC 29.1 g/dL (32.0-36.0); MEAN CORPUSCULAR VOLUME 66.7 fL (81.0-99.0); MEAN PLATELET VOLUME 10.1 fL (7.9-10.8); MONOCYTES # (AUTO) 0.5 10^3/uL (0.0-1.0); MONOCYTES % (AUTO) 6.4 %; NEUTROPHILS # (AUTO) 4.7 10^3/uL (1.5-6.6); NEUTROPHILS % (AUTO) 56.9 %; PLT - PLATELET COUNT 403 10^3/uL (130-450); RED BLOOD COUNT 4.84 10^6/uL (4.20-5.40); RED CELL DISTRIBUTION WIDTH 18.5 % (12.0-15.0); WHITE BLOOD COUNT 8.3 x10^3/uL (4.8-10.8)
[2022-10-12 22:57] LABS: SLIDE REVIEW? Indicated
[2022-10-12 23:10] LABS: ALBUMIN 4.3 g/dL (3.2-5.5); ALBUMIN/GLOBULIN RATIO 1.3 (1.0-2.2); BILIRUBIN,TOTAL 0.5 mg/dL (0.2-1.0); CALCIUM 9.3 mg/dL (8.5-10.3); CREATININE 0.7 mg/dL (0.4-1.0); POTASSIUM 3.4 mmol/L (3.5-5.0); TOTAL PROTEIN 7.7 g/dL (6.7-8.2)
[2022-10-12 23:20] LABS: PLATELET ESTIMATE, MANUAL NORMAL (130-450,000) (NORMAL); PLATELET MORPHOLOGY NORMAL APPEARANCE (NORMAL); RBC MORPHOLOGY (MULTIPLE) 1+ ANISOCYTOSIS (NORMAL); WBC MORPHOLOGY (MULTIPLE) NORMAL APPEARANCE (NORMAL)
[2022-10-13 00:01] LABS: BILIRUBIN,URINE NEGATIVE (NEGATIVE); GLUCOSE, URINE (UA) NEGATIVE (NEGATIVE); KETONES,URINE (UA) TRACE mg/dL (NEGATIVE); LEUKOCYTE ESTERASE, URINE NEGATIVE (NEGATIVE); NITRITE,URINE NEGATIVE (NEGATIVE); OCCULT BLOOD,URINE MODERATE (NEGATIVE); PH,URINE 5.5 PH (5.0-7.5); PROTEIN,URINE NEGATIVE (NEGATIVE); UROBILINOGEN,URINE 0.2 (NORMAL) E.U./dL (NORMAL)
[2022-10-13 00:06] LABS: CLARITY,URINE CLEAR (CLEAR)
[2022-10-13 00:07] LABS: HCG UR QUAL NEGATIVE
[2022-10-13 00:14] LABS: BACTERIA,URINE Rare /HPF (None Seen); MUCUS,URINE Few Strands; SQUAMOUS EPITHELIAL CELL,UR MOD Squamous (<= Few); WBC,URINE 0-3 /HPF (0-5)
--- NOTE | 2022-10-13 01:15 | ED Physician Documentation ---
History of Present Illness - Stated complaint Stated Complaint: DIZZY/LIGHTHEADED - Chief complaint Chief Complaint: Cardiac - History obtained from History obtained from: Patient - Additonal information Additional information: 26-year-old woman with history of gastric sleeve last Nixon and chronic anemia requiring iron infusions in the past presents with lightheadedness over the past several weeks.she has been feeling more tired than usual. Denies other symptoms. Review of Systems Constitutional: denies: Fever Eyes: denies: Loss of vision Nose: denies: Rhinorrhea / runny nose Cardiac: denies: Chest pain / pressure Respiratory: denies: Dyspnea PD PAST MEDICAL HISTORY - Past Surgical History Past Surgical History: Yes Ortho: Other - Present Medications Home Medications: Ambulatory Orders Medication Instructions Recorded Confirmed Labetalol [Trandate] 100 mg PO DAILY #30 tablet 03/20/21 diphenhydrAMINE [Benadryl] 25 mg PO Q4-6H PRN #20 cap 02/18/22 predniSONE [Deltasone] 60 mg PO DAILY 5 Days #15 tablet 02/18/22 - Allergies Allergies/Adverse Reactions: Allergies Allergy/AdvReac Type Severity Reaction Status Date / Time No Known Drug Allergies Allergy Verified 10/12/22 22:37 - Social History Does the pt smoke?: No Smoking Status: Never smoker Does the pt drink ETOH?: Yes Does the pt have substance abuse?: No - Immunizations Immunizations are current?: Yes PD ED PE NORMAL - Vitals Vital signs reviewed: Yes - General General: Alert and oriented X 3, No acute distress, Well developed/nourished - HEENT HEENT: Atraumatic, PERRL, EOMI - Neck Neck: Supple, no meningeal sign - Cardiac Cardiac: RRR - Respiratory Respiratory: No respiratory distress, Clear bilaterally - Derm Derm: Normal color, Warm and dry - Neuro Neuro: No motor deficit, No sensory deficit - Psych Psych: Normal mood Results - Vitals Vitals: Vital Signs - 24 hr 10/12/22 22:31 Temperature 36.7 C Heart Rate 77 Respiratory 19 Rate Blood Pressure 144/87 H O2 Saturation 100 Oxygen O2 Source Room air - Labs Labs: Laboratory Tests 10/12/22 10/12/22 10/12/22 22:45 22:45 23:45 WBC 8.3 RBC 4.84 Hgb 9.4 L Hct 32.3 L MCV 66.7 L MCH 19.4 L MCHC 29.1 L RDW 18.5 H Plt Count 403 MPV 10.1 Neut # (Auto) 4.7 Lymph # (Auto) 2.9 [place] # (Auto) 0.5 Eos # (Auto) 0.1 Baso # (Auto) 0.0 Absolute Nucleated RBC 0.00 Nucleated RBC % 0.0 Manual Slide Review Indicated WBC Morphology NORMAL APPEARANCE Platelet Estimate NORMAL (130-450,000) Platelet Morphology NORMAL APPEARANCE RBC Morph Micro Appear 1+ ANISOCYTOSIS Sodium 135 Potassium 3.4 L Chloride 101 Carbon Dioxide 24 Anion Gap 10.0 BUN 10 Creatinine 0.7 Estimated GFR (MDRD) 124 Glucose 92 Calcium 9.3 Total Bilirubin 0.5 AST 16 ALT 13 Alkaline Phosphatase 61 Total Protein 7.7 Albumin 4.3 Globulin 3.4 Albumin/Globulin Ratio 1.3 Lipase 32 Urine Color YELLOW Urine Clarity CLEAR Urine pH 5.5 Ur Specific [place] >=1.030 H Urine Protein NEGATIVE Urine Glucose (UA) NEGATIVE Urine Ketones TRACE Urine Occult Blood MODERATE H Urine Nitrite NEGATIVE Urine Bilirubin NEGATIVE Urine Urobilinogen 0.2 (NORMAL) Ur Leukocyte Esterase NEGATIVE Urine RBC 6-10 H Urine WBC 0-3 Ur Squamous Epith Cells MOD Squamous H Urine Bacteria Rare Urine Mucus Few Strands Ur Microscopic Review INDICATED Urine Culture Comments NOT INDICATED Urine HCG, Qual NEGATIVE PD Medical Decision Making - ED course Social Determinants of Health: four children at home ED course: 26-year-old woman presents with lightheadedness for the past several weeks. CBC and abdominal panel ordered. 1 L IVF provided with improvement in symptoms. She is found to have anemia with hemoglobin of 9.4, down from 10.8 in March 2021. I discussed with the patient that her anemia may be driving her symptoms and she should follow-up with her primary care provider. Return precautions were given. Departure - Departure Disposition: 01 Home, Self Care Clinical Impression: Anemia, Lightheaded Condition: Stable Instructions: Anemia Comments: You were seen in the emergency department for lightheadedness. You were given a liter of IV fluids and your lab work was checked. It was normal with the exception of some anemia with a hemoglobin of 9.4. Please follow-up with your primary care provider. Return to the emergency department for new or worsening symptoms or if you have other concerns.
[2022-10-13 01:22] VITALS: BP 130/106
== END 2022-10-13 01:21 | disposition home or self-care (01) ==
LOC: ED 22:26
DX: D64.9 Anemia, unspecified (principal); R42 Dizziness and giddiness
CPT/HCPCS: 36415; 80053; 81001; 81003; 81025; 83690; 85025; 87086; 96360; 99283

== ENCOUNTER 2023-07-13 10:11 | Outpatient (CLI) | payer OTHER ==
[2023-07-13] MEDS ORDERED: iohexoL-300 100 ML VIAL IVP ONE (13:52)
--- NOTE | 2023-07-13 18:50 | CT Report ---
PROCEDURE: SOFT TISSUE NECK W INDICATIONS: ENLARGED LYMPH NODES CONTRAST: 100mL Omni 300 TECHNIQUE: After the administration of intravenous contrast, 3.0 mm axial sections acquired from the sella to th e aortic arch. Additional oblique axial 3.0 mm sections acquired through the pharynx. 3 mm thick co blanco reformats were generated. For radiation dose reduction, the following was used: automated exp osure control, adjustment of mA and/or kV according to patient size. COMPARISON: Correlation is made with the overlapping portions of prior head CT, 03/26/2023 FINDINGS: Image quality: Excellent. Lymph nodes: No enlarged lymph nodes seen throughout the neck. A marker is placed upon clinical con cern involving the left posterior neck. At this site, no large lymph node can be seen. There is a bor derline prominent lymph node seen, as on series 2 image 37, measuring 8 x 3 mm. Vessels: Visualized vasculature appears patent. Neck spaces: The oropharynx, nasopharynx, and pharynx demonstrate no mucosal lesions. The vocal cor ds, false vocal cords, pyriform sinuses, epiglottis, vallecula, and tongue base all appear normal. E xtramucosal spaces appear unremarkable. Glands: The parotid and submandibular glands appear normal. The thyroid is normal in size and there are no incidental findings. Miscellaneous: Visualized brain and orbits appear normal. Lung apices appear clear. Superficial so ft tissues appear normal. Bones: No suspicious bony lesions. Visualized sinuses and mastoids appear unremarkable. IMPRESSION: At the site of palpable concern involving the left posterior neck, there is a borderline prominent ly mph node, without enlargement. No enlarged lymph nodes are seen throughout the neck. No neck masses can be seen. Reviewed by: Jeffrey Rodriguez MD on 07/13/2023 5:49 PM [place] Approved by: Jeffrey Rodriguez MD on 07/13/2023 5:49 PM [facility] Station ID: [id number]
== END 2023-07-13 10:12 | disposition home or self-care (01) ==
LOC: DI 10:11
PROVIDERS: ATTEND Internal Medicine Hematology & Oncology
DX: R59.0 Localized enlarged lymph nodes (principal); Z80.9 Family history of malignant neoplasm, unspecified
CPT/HCPCS: 70491; Q9967

== ENCOUNTER 2023-10-29 14:31 | Outpatient (CLI) | payer OTHER ==
--- NOTE | 2023-10-29 20:37 | Ultrasound Report ---
PROCEDURE: Soft Tissue Head or Neck INDICATIONS: FREQUENT MENSTRATION,THYROID NODULE TECHNIQUE: Real-time scanning was performed of the thyroid gland, with image documentation. COMPARISON: None FINDINGS: Right: Thyroid lobe measures 5.9 x 1.5 x 1.5 cm, and is homogeneous in echotexture. Left: Thyroid lobe measures 5.3 x 1.1 x 1.5 cm, and is homogenous in echotexture. Isthmus: 0.5 cm thick. Nodule number: One Location: Right thyroid Size: Less than 1 cm. Composition: Spongiform (0 points). Echogenicity: Hypoechoic (2 points). Shape: wider than tall (0 points). Margins: Smooth (0 points). Echogenic foci: None (0 points). Total points: 2 ACR TI-RADS category: TI-RADS 2: Not suspicious. Nodule number: Two Location: [Left thyroid Size: 1.2 x 0.6 x 1 cm. Composition: Solid (2 points). Echogenicity: Hyperechoic (1 point). Shape: wider than tall (0 points). Margins: Smooth (0 points). Echogenic foci: None (0 points). Total points: 3 ACR TI-RADS category: TI-RADS 3: Mildly suspicious. Nodule number: Three Location: [Left thyroid Size: 1.4 x 0.7 x 0.9 cm. Composition: Solid (2 points). Echogenicity: Isoechoic (1 point). Shape: wider than tall (0 points). Margins: Smooth (0 points). Echogenic foci: None (0 points). Total points: 3 ACR TI-RADS category: TI-RADS 3: Mildly suspicious. Nodule number: Four Location: [Left thyroid Size: Less than 1 cm cm. Composition: Solid (2 points). Echogenicity: Hyperechoic (1 point). Shape: wider than tall (0 points). Margins: Smooth (0 points). Echogenic foci: None (0 points). Total points: 3 ACR TI-RADS category: TI-RADS 3: Mildly suspicious. IMPRESSION: Three TIRADS 3 nodules which are all smaller than 1.5 cm. Based on size, no dedicated follow-up neede d. ACR TI-RADS definitions and recommendations: TI-RADS 1 (benign): 0 points. FNA not needed. TI-RADS 2 (not suspicious): 2 points. FNA not needed. TI-RADS 3 (mildly suspicious): 3 points. "FNA if 2.5 cm or larger, follow up if 1.5 cm or larger (at 1, 3, and 5 years). TI-RADS 4 (moderately suspicious): 4-6 points. "FNA if 1.5 cm or larger, follow up if 1 cm or larger (at 1, 2, 3, and 5 years). TI-RADS 5 (highly suspicious): 7 points or more. "FNA if 1 cm or larger, follow up if 0.5 cm or larger (every year for 5 years). Reviewed by: Dion Dominguez MD on 10/29/2023 8:36 PM PDT Approved by: Dion Dominguez MD on 10/29/2023 8:36 PM PDT Station ID: [id number]
--- NOTE | 2023-10-29 20:42 | Ultrasound Report ---
PROCEDURE: Transvaginal INDICATIONS: FREQUENT MENSTRATION,THYROID NODULE TECHNIQUE: Real-time endovaginal scanning was performed of the pelvic organs, with image documentation. COMPARISON: None. FINDINGS: Uterus: Uterus is anteverted and normal in size at 7.6 x 4.9 x 6.4 cm. The myometrium is homogeneou s. The endometrium measures 13.6 mm in combined thickness. Small volume of fluid in the endometrial canal. Cervix and vagina are within normal limits. Ovaries: The right ovary measures 1.5 x 2.5 x 2 cm, with a calculated ovarian volume of 3.9 cc. The left ovary measures 4 x 2 x 2.7 cm, with a calculated ovarian volume of 11.1 cc. The ovaries have a normal sonographic appearance. Less than 12 follicles can be seen in each ovary. No adnexal masses are seen. No cystic lesions measuring greater than 3 cm. Other: No pathologic free abdominal or pelvic fluid. IMPRESSION: 1.Small amount of fluid in the endometrial canal favored to be physiologic. 2.Normal endometrial thickness of 13.6 mm. Reviewed by: Dion Dominguez MD on 10/29/2023 8:41 PM PDT Approved by: Dion Dominguez MD on 10/29/2023 8:41 PM PDT Station ID: [id number]
== END 2023-10-29 14:32 | disposition home or self-care (01) ==
LOC: DI 14:31
PROVIDERS: ATTEND Nurse Practitioner Family
DX: N92.0 Excessive and frequent menstruation with regular cycle (principal); E04.2 Nontoxic multinodular goiter